=== PATIENT | female | born 1985 | race Caucasian/White ===

== ENCOUNTER → 2020-07-11 16:15 | Outpatient (BNVA) | payer MEDICAID, SELFPAY | PROVIDERS: PCP Internal Medicine Geriatric Medicine; Visit Provider Surgery | DX: L76.82 Other postprocedural complications of skin and subcutaneous tissue (principal); I96 Gangrene, not elsewhere classified | CPT/HCPCS: 11042; 99212 ==

== ENCOUNTER → 2020-07-18 15:41 | Outpatient (BNVA) | payer MEDICAID, SELFPAY | PROVIDERS: PCP Internal Medicine Geriatric Medicine; Visit Provider Surgery | DX: L76.82 Other postprocedural complications of skin and subcutaneous tissue (principal) | CPT/HCPCS: 97597; 99213 ==

== ENCOUNTER → 2020-08-02 13:47 | Outpatient (BNVA) | payer MEDICAID, SELFPAY | PROVIDERS: PCP Internal Medicine Geriatric Medicine; Visit Provider Surgery | DX: L76.82 Other postprocedural complications of skin and subcutaneous tissue (principal) | CPT/HCPCS: 99212 ==

== ENCOUNTER → 2020-08-06 15:28 | Outpatient (BNVA) | payer MEDICAID, SELFPAY | PROVIDERS: PCP Internal Medicine Geriatric Medicine; Referring Provider Internal Medicine Geriatric Medicine; Visit Provider Surgery | DX: Z76.89 Persons encountering health services in other specified circumstances (principal) ==

== ENCOUNTER → 2020-08-08 15:14 | Outpatient (BNVA) | payer MEDICAID, SELFPAY | PROVIDERS: PCP Internal Medicine Geriatric Medicine; Referring Provider Internal Medicine Geriatric Medicine; Visit Provider Surgery | DX: L76.82 Other postprocedural complications of skin and subcutaneous tissue (principal) | CPT/HCPCS: 99212 ==

== ENCOUNTER → 2020-08-10 12:39 | Outpatient (BNVA) | payer MEDICAID, SELFPAY | PROVIDERS: PCP Internal Medicine Geriatric Medicine; Referring Provider Internal Medicine Geriatric Medicine; Visit Provider Surgery | DX: Z76.89 Persons encountering health services in other specified circumstances (principal) ==

== ENCOUNTER → 2020-08-13 14:20 | Outpatient (BNVA) | payer MEDICAID, SELFPAY | PROVIDERS: PCP Internal Medicine Geriatric Medicine; Visit Provider Surgery | DX: L76.82 Other postprocedural complications of skin and subcutaneous tissue (principal) | CPT/HCPCS: 99211 ==

== ENCOUNTER → 2020-08-17 10:59 | Outpatient (BNVA) | payer MEDICAID, SELFPAY | PROVIDERS: PCP Internal Medicine Geriatric Medicine; Visit Provider Surgery | DX: L76.82 Other postprocedural complications of skin and subcutaneous tissue (principal) | CPT/HCPCS: 99211 ==

== ENCOUNTER → 2020-08-21 14:55 | Outpatient (BNVA) | payer MEDICAID, SELFPAY | PROVIDERS: PCP Internal Medicine Geriatric Medicine; Visit Provider Surgery | DX: L76.82 Other postprocedural complications of skin and subcutaneous tissue (principal) | CPT/HCPCS: 99212 ==

== ENCOUNTER → 2020-08-24 11:54 | Outpatient (BNVA) | payer MEDICAID, SELFPAY | PROVIDERS: PCP Internal Medicine Geriatric Medicine; Referring Provider Internal Medicine Geriatric Medicine; Visit Provider Surgery | DX: L76.82 Other postprocedural complications of skin and subcutaneous tissue (principal) | CPT/HCPCS: 99211 ==

== ENCOUNTER → 2020-08-27 11:18 | Outpatient (BNVA) | payer MEDICAID, SELFPAY | PROVIDERS: PCP Internal Medicine Geriatric Medicine; Visit Provider Surgery | DX: L76.82 Other postprocedural complications of skin and subcutaneous tissue (principal) | CPT/HCPCS: 99211 ==

== ENCOUNTER → 2020-08-29 12:16 | Outpatient (BNVA) | payer MEDICAID, SELFPAY | PROVIDERS: PCP Internal Medicine Geriatric Medicine; Visit Provider Surgery | DX: L76.82 Other postprocedural complications of skin and subcutaneous tissue (principal) | CPT/HCPCS: 99211 ==

== ENCOUNTER → 2020-09-12 15:15 | Outpatient (BNVA) | payer MEDICAID, SELFPAY | PROVIDERS: PCP Internal Medicine Geriatric Medicine; Referring Provider Internal Medicine Geriatric Medicine; Visit Provider Surgery | DX: L76.82 Other postprocedural complications of skin and subcutaneous tissue (principal) | CPT/HCPCS: 16020; 99212 ==

== ENCOUNTER → 2020-12-25 15:24 | Outpatient (BNVA) | payer MEDICAID, SELFPAY | PROVIDERS: PCP Internal Medicine Geriatric Medicine; Visit Provider Obstetrics & Gynecology ==

== ENCOUNTER 2021-03-09 22:29 | Emergency (ER) | payer MEDICAID, SELFPAY ==
[2021-03-09 22:42] VITALS: BP 106/70; BP 142/84; PULSE 109; PULSE 92; RESP 18; TEMP 36.8; O2SAT 96; O2SAT 98; BMI 34.9
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
== END 2021-03-10 00:36 | disposition home or self-care (01) ==
PROVIDERS: Emergency Provider Student in an Organized Health Care Education/Training Program
DX: R10.9 Unspecified abdominal pain (principal); Z48.00 Encounter for change or removal of nonsurgical wound dressing; Z79.899 Other long term (current) drug therapy
CPT/HCPCS: 99283

== ENCOUNTER 2021-03-26 19:21 | Inpatient (IN) | payer MEDICAID, SELFPAY ==
--- NOTE | ~2021-03-26 | CT_ITS ---
EXAMINATION: CT ABDOMEN AND PELVIS WITH CONTRAST CLINICAL INFORMATION: R sided mass felt cellulitis recent tummy tuck scar revision COMPARISON: CT scan abdomen pelvis 06/01/2020 TECHNIQUE: Multidetector volumetric images were obtained from the superior aspect of the liver through the pubic symphysis following administration 85 mL of Omnipaque 350 intravenous contrast. Sagittal and coronal reformatted images were obtained on the technologist's workstation. Oral contrast: No This CT examination was performed using dose optimization techniques as appropriate, variously including the following: *Automated exposure control *Adjustment of mA and/or kV according to patient size (this includes techniques or standardized protocols for targeted exams where dose is matched to indication/reason for exam; i.e. extremities or head) *Use of iterative reconstruction technique DLP: 759 mGy-cm FINDINGS: LUNG BASES: The visualized lung bases are unremarkable. LIVER, GALLBLADDER, AND BILIARY TREE: The liver is normal in size, shape, and attenuation. No focal hepatic lesion or biliary ductal dilatation is present. The gallbladder is unremarkable with no evidence of radiopaque gallstones, gallbladder wall thickening, or obvious pericholecystic inflammatory changes. PANCREAS: Unremarkable. SPLEEN: Unremarkable. ADRENAL GLANDS: Unremarkable. KIDNEYS AND URETERS: The kidneys are normal in size, shape, and attenuation. No hydronephrosis, hydroureter, or calculi seen. No perinephric stranding. BLADDER: Unremarkable. GASTROINTESTINAL TRACT: The small and large bowel are unremarkable. The appendix is unremarkable. ABDOMINAL WALL: There is a large ovoid fluid collection in the subcutaneous tissue at the anterior pelvic wall. Collection extends transversely across the pelvis. The density of the fluid collection measurement of 16 Hounsfield units, which is slightly greater than simple fluid. No air in the collection. The collection has a thin wall. The collection measures 7.6 x 3.3 x 24 cm in size. There is edema in the subcutaneous fat around the collection. No diastases of the musculature. No ventral wall hernia. LYMPH NODES: There are borderline prominent lymph nodes in the right and left groin likely reactive. No intrapelvic or intra-abdominal significant lymphadenopathy. VASCULAR: Unremarkable. PELVIC VISCERA: Unremarkable. OSSEOUS STRUCTURES: Unremarkable. CT/CT abdomen pelvis w con IMPRESSION: Postoperative subcutaneous fluid collection at the pelvis anterior wall.
--- NOTE | ~2021-03-26 | US_ITS ---
EXAMINATION: ULTRASOUND DRAIN PERCUTANEOUS CLINICAL INFORMATION: Abdominal wall abscess post surgery/abdominal plasty COMPARISON: Previous CT of the abdomen and pelvis from yesterday TECHNIQUE: Procedure and risks and benefits including bleeding and infection were discussed with the patient and informed consent was obtained. The right lower quadrant was prepped and draped in the usual sterile fashion. The skin and soft tissues were anesthetized with 1% lidocaine plain. Using ultrasound guidance and a 5 Maltese Yueh needle, access to the abdominal wall collection was obtained. Cloudy brown fluid was aspirated. Over an 035 guidewire and following serial dilatation, a 10.2 Maltese pigtail drainage catheter was positioned. Approximately 300 mL of cloudy brown fluid was removed. Diagnostic specimen was sent for Gram stain and culture. The patient received Versed 1 mg and fentanyl 50 mcg intravenously during the procedure. FINDINGS: There is a complex fluid collection with internal echoes in the abdominal wall that was targeted for drainage. US/US drain demetrio retro perc IMPRESSION: Ultrasound-guided abdominal wall drainage.
[2021-03-26 19:46] VITALS: BP 102/60; PULSE 98; RESP 20; TEMP 36.1; O2SAT 98; BMI 35.2
--- NOTE | 2021-03-26 19:59 | ED_ITS ---
HPI - Skin/Abscess/Foreign Bdy General Chief complaint: General Medical Stated complaint: INFECTION? Time Seen by Provider: 03/26/21 19:58 Source: patient Mode of arrival: ambulatory Limitations: no limitations History of Present Illness HPI narrative: 35 yo female hx of revision of her under arm scars and tummy tuck scar on 02/28 at [place] she notes her arms have been sore and she feels her lower incision is more red and swollen over the past couple of days, last night had a fever of 102 took tylenol and motrin prior to arrival. she did take antibiotics post op red pill and finished the weeks course. MD complaint: lesion and other (fevers, ?infected surgery wounds) Onset (ago): day(s) (2) Location: generalized (abdominal scar), LUE and RUE Severity: moderate Quality: aching Pain Consistency: constant Relieving factors: none Exacerbating factors: movement Context: recent antibiotic and other Associated symptoms: fever, chills, rigors, nausea and vomiting Treatments prior to arrival: none Related Data Home Medications Medication Instructions Recorded Confirmed bupropion HCl 300 mg 24 hr tablet, 300 mg PO QAM 07/11/20 03/26/21 extended release dextroamphetamine-amphetamine 20 20 mg PO DAILY@1500 07/11/20 03/26/21 mg tablet dextroamphetamine-amphetamine 20 40 mg PO DAILY 07/11/20 03/26/21 mg tablet amlodipine 1 tab PO DAILY 03/26/21 03/26/21 aripiprazole 5 mg PO BEDTIME 03/26/21 03/26/21 bupropion HCl 150 mg PO QAM 03/26/21 03/26/21 cholecalciferol (vitamin D3) 1 cap PO DAILY 03/26/21 03/26/21 risperidone 1 - 2 mg PO BEDTIME 03/26/21 03/26/21 risperidone 1 tab PO DAILY PRN 03/26/21 03/26/21 spironolactone 2 tab PO DAILY 03/26/21 03/26/21 Allergies Allergy/AdvReac Type Severity Reaction Status Date / Time citalopram [From CELEXA] Allergy Unknown JITTERY Verified 03/09/21 22:47 Review of Systems Review of Systems: Constitutional : No Weight loss, pos Fever, pos Chills, pos Fatigue, pos Malaise ENT/Mouth : No sore throat, No Rhinorrhea Eyes: No Eye Pain, No Swelling, No Redness Cardiovascular : No Chest Pain, No SOB, No Dyspnea on Exertion, No Orthopnea, No Edema, No Palpitations Respiratory : No Cough, No Sputum, No Wheezing Gastrointestinal : pos Nausea, pos Vomiting, No Diarrhea, No Constipation, No abdominal Pain, No Hematochezia, No Melena Genitourinary : No Dysuria, No Urinary Frequency, No Hematuria, Musculoskeletal : No joint pain, No Myalgias, No Joint Swelling Skin : pos Skin Lesions, No rash Neuro : pos Weakness, No Numbness, No Dizziness, No Headache Psych : No Anxiety/Panic, No Depression Heme/Lymph: No Bruising, No Bleeding,No Lymphadenopathy Endocrine : No Polyuria, No Polydipsia All other systems reviewed and are negative [facility] Past Medical History Attestation statement: The following information was validated with the patient. Medical History Bipolar disorder Other postprocedural complications of skin and subcutaneous tissue Surgical History History of abdominoplasty Status post panniculectomy Social History Social History Alcohol intake: current Patient Tobacco Use Status: Current everyday Tobacco user Substance Use Type: Marijuana Advance Directives: No Advance Directives Information Provided: Yes Patient : No Gender identity: female Physical Exam Vital Signs: Vital Signs: Last Vital Signs Temp 97.0 F 03/26/21 19:46 Pulse 88 03/27/21 00:00 Resp 16 03/27/21 00:00 BP 132/81 03/27/21 00:00 Pulse Ox 98 03/27/21 00:00 Body Mass Index 35.2 Appearance: Alert. Oriented X3. No acute distress. Eyes: Pupils equal, round and reactive to light. ENT: Pharynx normal. Neck: Normal inspection. Neck supple. CVS: Normal heart rate and rhythm. Pulses normal. Respiratory: No respiratory distress. Breath sounds normal. Abdomen: Soft abdominoplasty scars L side some superficial dehiscence, R side swelling firmness felt and erythema noted with yellow drainage, very warm to the touch Skin: Skin warm and dry. Normal skin color. Normal skin turgor. Extremities: No lower extremity edema. No calf ttp no cellulitis under the arms there is wound dehiscence, no necrosis, no drainage Neuro: Oriented X 3. No motor deficit. No sensory deficit. Course Course Course Narrative: Dr. Carlisle to admit patient for further care MDM - Skin/Abscess/Foreign Bdy MDM Narrative Medical decision making narrative: 35 yo female hx of revision of her under arm scars and tummy tuck scar on 02/28 at [place] she notes her arms have been sore and she feels her lower incision is more red and swollen over the past couple of days, last night had a fever of 102 took tylenol and motrin prior to arrival. she did take antibiotics post op red pill and finished the weeks course at this time there is a concern for cellulitis of her abdominal wall with ?abscess vs infected seroma - labs, culturs, IV zosyn/vancomycin and CT scan for deeper fluid collection - likely surgical consult and admit Lab Data Result diagrams: 03/26/21 20:42 03/26/21 20:42 Labs: Lab Results 03/26/21 03/26/21 03/26/21 Range/Units 20:42 20:42 20:42 WBC 16.5 H (4.8-10.8) X10*3/uL RBC 3.42 L (4.20-5.50) X10*6/uL Hgb 11.4 L (12.0-16.0) g/dl Hct 34.3 L (37-47) % MCV 100.3 H (80-98) fL MCH 33.3 H (27.0-33.0) pg MCHC 33.2 (31.0-35.0) g/dl RDW 14.2 (11.0-16.0) % Plt Count 501 H (160-400) X10*3/uL MPV 8.2 L (9.4-12.3) fL Immature Gran % (Auto) 0.7 H (0.0-0.4) % Neut % (Auto) 82.9 H (45-73) % Lymph % (Auto) 10.0 L (20-40) % [place] % (Auto) 6.0 (2-11) % Eos % (Auto) 0.2 (0-4) % Baso % (Auto) 0.2 (0-2) % Lymph # (Auto) 1.7 (1.2-4.9) X10*3/uL [place] # (Auto) 1.0 (0.1-1.2) X10*3/uL Eos # (Auto) 0.0 (0.0-0.4) X10*3/uL Baso # (Auto) 0.0 (0.0-0.2) X10*3/uL Abs Immat Gran (auto) 0.11 H (0.00-0.03) X10*3/uL Absolute Neuts (auto) 13.7 H (2.0-8.3) X10*3/uL Absolute Nucleated RBC 0.000 (0.0-0.012) X10*3/uL Nucleated RBC % (auto) 0.0 (0.0-0.2) /100WBC PT (10.8-13.0) SEC INR (0.9-1.1) APTT (24.1-38.0) SEC Sodium (135-145) mmol/L Potassium (3.3-5.1) mmol/L Chloride (96-108) mmol/L Carbon Dioxide (22-29) mmol/L Anion Gap (12-20) BUN (9-16) mg/dL Creatinine (0.5-1.4) mg/dL Estim Creat Clear Calc Estimated GFR Random Glucose (60-115) mg/dL Lactic Acid 1.7 (0.5-2.0) mmol/L Calcium (8.4-10.2) mg/dL Magnesium (1.6-2.6) mg/dL Total Bilirubin (0.0-1.0) mg/dL Direct Bilirubin (0.0-0.5) mg/dL AST (5-31) U/L ALT (0-31) U/L Alkaline Phosphatase (39-117) U/L C-Reactive Protein (< or = 0.50) mg/dL Total Protein (6.5-8.0) g/dL Albumin (3.5-5.0) g/dL Urine Color Urine Appearance Urine pH (5.0-8.0) Ur Specific [place] (1.005-1.025) Urine Protein (NEG-TRACE) MG/DL Urine Glucose (UA) (NEG) MG/DL Urine Ketones (NEG) MG/DL Urine Blood (NEG) Urine Nitrite (NEG) Ur Leukocyte Esterase (NEG) Urine RBC (0) /HPF Urine WBC (0-4) /HPF Ur Squamous Epith Cells /LPF Urine Bacteria /LPF Urine Test (NEGATIVE) COVID-19 ([facility]NEHAL) Negative (Negative) COVID-19 Clin Com See Note 03/26/21 03/26/21 03/26/21 Range/Units 20:42 20:42 20:42 WBC (4.8-10.8) X10*3/uL RBC (4.20-5.50) X10*6/uL Hgb (12.0-16.0) g/dl Hct (37-47) % MCV (80-98) fL MCH (27.0-33.0) pg MCHC (31.0-35.0) g/dl RDW (11.0-16.0) % Plt Count (160-400) X10*3/uL MPV (9.4-12.3) fL Immature Gran % (Auto) (0.0-0.4) % Neut % (Auto) (45-73) % Lymph % (Auto) (20-40) % [place] % (Auto) (2-11) % Eos % (Auto) (0-4) % Baso % (Auto) (0-2) % Lymph # (Auto) (1.2-4.9) X10*3/uL [place] # (Auto) (0.1-1.2) X10*3/uL Eos # (Auto) (0.0-0.4) X10*3/uL Baso # (Auto) (0.0-0.2) X10*3/uL Abs Immat Gran (auto) (0.00-0.03) X10*3/uL Absolute Neuts (auto) (2.0-8.3) X10*3/uL Absolute Nucleated RBC (0.0-0.012) X10*3/uL Nucleated RBC % (auto) (0.0-0.2) /100WBC PT 17.0 H (10.8-13.0) SEC INR 1.4 H (0.9-1.1) APTT 34.3 (24.1-38.0) SEC Sodium 137 (135-145) mmol/L Potassium 4.0 (3.3-5.1) mmol/L Chloride 101 (96-108) mmol/L Carbon Dioxide 20 L (22-29) mmol/L Anion Gap 20 (12-20) BUN 14 (9-16) mg/dL Creatinine 0.92 (0.5-1.4) mg/dL Estim Creat Clear Calc 98.8 Estimated GFR > 60 Random Glucose 94 (60-115) mg/dL Lactic Acid (0.5-2.0) mmol/L Calcium 9.0 (8.4-10.2) mg/dL Magnesium 2.0 (1.6-2.6) mg/dL Total Bilirubin 0.4 (0.0-1.0) mg/dL Direct Bilirubin < 0.2 (0.0-0.5) mg/dL AST 15 (5-31) U/L ALT < 6 (0-31) U/L Alkaline Phosphatase 88 (39-117) U/L C-Reactive Protein 33.02 H (< or = 0.50) mg/dL Total Protein 7.4 (6.5-8.0) g/dL Albumin 4.0 (3.5-5.0) g/dL Urine Color Urine Appearance Urine pH (5.0-8.0) Ur Specific [place] (1.005-1.025) Urine Protein (NEG-TRACE) MG/DL Urine Glucose (UA) (NEG) MG/DL Urine Ketones (NEG) MG/DL Urine Blood (NEG) Urine Nitrite (NEG) Ur Leukocyte Esterase (NEG) Urine RBC (0) /HPF Urine WBC (0-4) /HPF Ur Squamous Epith Cells /LPF Urine Bacteria /LPF Urine Test (NEGATIVE) COVID-19 (SNEHAL) (Negative) COVID-19 Clin Com 03/26/21 03/26/21 Range/Units 20:42 20:42 WBC (4.8-10.8) X10*3/uL RBC (4.20-5.50) X10*6/uL Hgb (12.0-16.0) g/dl Hct (37-47) % MCV (80-98) fL MCH (27.0-33.0) pg MCHC (31.0-35.0) g/dl RDW (11.0-16.0) % Plt Count (160-400) X10*3/uL MPV (9.4-12.3) fL Immature Gran % (Auto) (0.0-0.4) % Neut % (Auto) (45-73) % Lymph % (Auto) (20-40) % [place] % (Auto) (2-11) % Eos % (Auto) (0-4) % Baso % (Auto) (0-2) % Lymph # (Auto) (1.2-4.9) X10*3/uL [place] # (Auto) (0.1-1.2) X10*3/uL Eos # (Auto) (0.0-0.4) X10*3/uL Baso # (Auto) (0.0-0.2) X10*3/uL Abs Immat Gran (auto) (0.00-0.03) X10*3/uL Absolute Neuts (auto) (2.0-8.3) X10*3/uL Absolute Nucleated RBC (0.0-0.012) X10*3/uL Nucleated RBC % (auto) (0.0-0.2) /100WBC PT (10.8-13.0) SEC INR (0.9-1.1) APTT (24.1-38.0) SEC Sodium (135-145) mmol/L Potassium (3.3-5.1) mmol/L Chloride (96-108) mmol/L Carbon Dioxide (22-29) mmol/L Anion Gap (12-20) BUN (9-16) mg/dL Creatinine (0.5-1.4) mg/dL Estim Creat Clear Calc Estimated GFR Random Glucose (60-115) mg/dL Lactic Acid (0.5-2.0) mmol/L Calcium (8.4-10.2) mg/dL Magnesium (1.6-2.6) mg/dL Total Bilirubin (0.0-1.0) mg/dL Direct Bilirubin (0.0-0.5) mg/dL AST (5-31) U/L ALT (0-31) U/L Alkaline Phosphatase (39-117) U/L C-Reactive Protein (< or = 0.50) mg/dL Total Protein (6.5-8.0) g/dL Albumin (3.5-5.0) g/dL Urine Color YELLOW Urine Appearance CLEAR Urine pH 5.0 (5.0-8.0) Ur Specific [place] 1.025 (1.005-1.025) Urine Protein 1+ H (NEG-TRACE) MG/DL Urine Glucose (UA) NEG (NEG) MG/DL Urine Ketones 5 (NEG) MG/DL Urine Blood NEG (NEG) Urine Nitrite NEG (NEG) Ur Leukocyte Esterase NEG (NEG) Urine RBC 0 (0) /HPF Urine WBC 0-2 (0-4) /HPF Ur Squamous Epith Cells 4+ /LPF Urine Bacteria 1+ /LPF Urine Test NEGATIVE (NEGATIVE) COVID-19 ([facility]) (Negative) COVID-19 Clin Com Discharge Plan Discharge Clinical Impression: Wound dehiscence Cellulitis Qualifiers: Site of cellulitis: trunk Site of cellulitis of trunk: abdominal wall Qualified Code(s): L03.311 - Cellulitis of abdominal wall Leukocytosis Qualifiers: Leukocytosis type: unspecified Qualified Code(s): D72.829 - Elevated white blood cell count, unspecified Patient Disposition: Admitted As Inpatient
--- NOTE | 2021-03-26 20:06 | PC.NURSE ---
MD GEE AT BEDSIDE FOR PRIMARY EVAL.
--- NOTE | 2021-03-26 20:47 | PHA.MEDREC ---
Pharmacy Consult ? Medication Reconciliation Pharmacy has completed the medication reconciliation. Aldactone last filled for 50 mg daily, pt states that she still takes 100 mg daily
[2021-03-26 20:52] LABS: MANUAL DIFF FLAG NO
[2021-03-26] MEDS: Piperacillin Sodium/Tazobactam 3.375 GM in 0.9 % Sodium Chloride 50 ML IV (20:52)
[2021-03-26] MEDS: 0.9 % Sodium Chloride 1,000 ML 999 ML IVCONT (20:53)
[2021-03-26] MEDS: ondansetron HCL 4 MG/2 ML VIAL IVPUSH (20:53)
[2021-03-26 20:57] LABS: Glucose Urine UA NEG (NEG); Leukocyte Esterase Urine NEG (NEG); Nitrite Urine NEG (NEG); Specific Gravity - Urine 1.025 (1.005-1.025); Urine Blood NEG (NEG); Urine Ketones 5 MG/DL (NEG); Urine Protein 1+ MG/DL (NEG-TRACE)
[2021-03-26 20:59] LABS: Appearance Urine CLEAR; Color Urine YELLOW
[2021-03-26 21:02] LABS: Basophils Percent Auto 0.2 % (0-2); Eosinophils Percent Auto 0.2 % (0-4); Hematocrit 34.3 % (37-47); Hemoglobin 11.4 g/dl (12.0-16.0); Imm Gran Abs Auto 0.11 X10*3/uL (0.00-0.03); Imm Gran Pct Auto 0.7 % (0.0-0.4); Lymphocytes Absolute Auto 1.7 X10*3/uL (1.2-4.9); Mean Corpuscular HGB Conc 33.2 g/dl (31.0-35.0); Mean Corpuscular Hemoglobin 33.3 pg (27.0-33.0); Mean Corpuscular Volume 100.3 fL (80-98); Mean Platelet Volume 8.2 fL (9.4-12.3); Neutrophils Absolute Auto 13.7 X10*3/uL (2.0-8.3); Neutrophils Percent Auto 82.9 % (45-73); Platelet Count 501 X10*3/uL (160-400); Red Blood Count 3.42 X10*6/uL (4.20-5.50); Red Cell Distribution Width 14.2 % (11.0-16.0); White Blood Count 16.5 X10*3/uL (4.8-10.8)
[2021-03-26 21:03] LABS: INTERNATIONAL NORM RATIO 1.4 (0.9-1.1)
[2021-03-26 21:06] LABS: Partial Thromboplastin Time 34.3 SEC (24.1-38.0)
[2021-03-26 21:09] LABS: COVID-19 Test Negative (Negative)
[2021-03-26 21:19] LABS: Lactic Acid 1.7 mmol/L (0.5-2.0)
[2021-03-26 21:23] LABS: UPreg QC Valid YES; Urine Pregnancy NEGATIVE (NEGATIVE)
[2021-03-26 21:24] LABS: Anion Gap 20 (12-20); Bacteria Urine 1+ /LPF; Blood Urea Nitrogen 14 mg/dL (9-16); Carbon Dioxide 20 mmol/L (22-29); Chloride 101 mmol/L (96-108); Creatinine Clr Calc Pharmacy 98.8; Estimated Glomerular Filt Rate > 60; Glucose Random 94 mg/dL (60-115); RBC Urine 0 /HPF (0); Sodium 137 mmol/L (135-145); Squamous Epithelial Cell Urine 4+ /LPF; WBC Urine 0-2 /HPF (0-4)
[2021-03-26 21:26] LABS: Alanine Aminotransferase < 6 U/L (0-31); Alkaline Phosphatase 88 U/L (39-117); Aspartate Amino Transferase 15 U/L (5-31); Bilirubin Direct < 0.2 mg/dL (0.0-0.5); Bilirubin Total 0.4 mg/dL (0.0-1.0); Total Protein 7.4 g/dL (6.5-8.0)
[2021-03-26] MEDS: iohexoL 350 MG/ML 100 ML INFUS..BTL IV (21:45)
[2021-03-26 22:18] LABS: C Reactive Protein 33.02 mg/dL (< or = 0.50)
[2021-03-26] MEDS: vancomycin HCL 1,250 MG in 0.9 % Sodium Chloride 250 ML 166.67 MG IV (22:26)
--- NOTE | 2021-03-26 22:57 | PM.HPGS ---
History of Present Illness History of Present Illness Date of Service: 03/27/21 Chief complaint: Abdominal wall abscess Narrative: Janie Mccormack is a 35 year old female history of abdominal plasty performed in [place], [place] last year subsequently developed an area of skin necrosis. She was treated by Dr. Rice and required wound debridement followed by wound VAC placement. After a prolonged period the wound closed completely. She return to [place] for revision of the scar in February 2021 including revision of scars in the upper arm and now presents with increased abdominal pain, redness and evidence of an abdominal wall infection. She reports pain throughout the lower abdomen which has been increasing over the past week. She also complains of fever and chills. Review of Systems Review of Systems: Yes all other systems are reviewed and are negative Constitutional: Constitutional: Reports body ache(s), Reports chills, Reports fatigue and Reports fever(s) Cardiovascular: Cardiovascular: Denies dyspnea Respiratory: Respiratory: Denies cough, Denies dyspnea and Denies wheezing Gastrointestinal: Gastrointestinal: Reports as per HPI Musculoskeletal: Musculoskeletal: Reports as per HPI Endocrine: Endocrine: Reports fatigue Allergic/Immunologic: Allergic/Immunologic: Denies wheezing PMF Past Medical History Medical History Bipolar disorder Other postprocedural complications of skin and subcutaneous tissue Surgical History Surgical History History of abdominoplasty Status post panniculectomy Social History Social History Household Members: Children Housing: House Alcohol intake: current Patient Tobacco Use Status: Current everyday Tobacco user Tobacco use type: Cigarette Patient Interested in Nicotine Replacement: No Patient Given Instructions on How to Stop Smoking: No Substance Use Type: Marijuana Substance Use Frequency: Daily Currently Displaying Signs/Symptoms of Drug Intoxication Withdrawal: No Any prior treatment program specific to substance use: No Have you been hit, kicked, punched, or otherwise hurt by someone within the past year? If so, by whom?: No Do you feel safe in your current relationship?: Yes Is there a partner from a previous relationship who is making you feel unsafe now?: No Are you made to feel afraid or neglected: No Advance Directives: No Advance Directives Information Provided: Yes Do you have thoughts of harming others: None Do you have a plan to hurt others: No Plan Recently lost weight without trying: No Nutrition Risks: No Nutritional Risk Patient : No : No Poor oral hygiene: No service: No Current occupational status: unemployed Gender identity: female Meds Allergies Allergy/AdvReac Type Severity Reaction Status Date / Time citalopram [From CELEXA] Allergy Unknown JITTERY Verified 03/27/21 13:51 Active Medications: Current Medications Generic Name Dose Route Start Last Admin Trade Name Freq PRN Reason Stop Dose Admin Piperacillin Sod/Tazobactam 50 mls @ 100 mls/hr 03/26/21 23:00 Sod 3.375 gm/ Sodium Chloride IV Q6H [facility] Pharmacy Consult 1 each 03/26/21 20:07 Consult Rx Perform Med Rec MISCELLANE ONCE PRN Consult order Home Medications Medication Instructions Recorded Confirmed Last Taken Type bupropion HCl 300 mg 24 hr tablet, 300 mg PO QAM 07/11/20 03/26/21 03/24/21 History extended release dextroamphetamine-amphetamine 20 20 mg PO DAILY@1500 07/11/20 03/26/21 03/25/21 History mg tablet dextroamphetamine-amphetamine 20 40 mg PO DAILY 07/11/20 03/26/21 03/24/21 History mg tablet amlodipine 1 tab PO DAILY 03/26/21 03/26/21 03/24/21 History aripiprazole 5 mg PO BEDTIME 03/26/21 03/26/21 03/24/21 History bupropion HCl 150 mg PO QAM 03/26/21 03/26/21 03/24/21 History cholecalciferol (vitamin D3) 1 cap PO DAILY 03/26/21 03/26/21 03/24/21 History risperidone 1 - 2 mg PO BEDTIME 03/26/21 03/26/21 03/24/21 History risperidone 1 tab PO DAILY PRN 03/26/21 03/26/21 Unknown History spironolactone 2 tab PO DAILY 03/26/21 03/26/21 03/24/21 History Physical Exam Vital Signs: Vital Signs: Last Vital Signs Temp 97.0 F 03/26/21 19:46 Pulse 98 03/26/21 19:46 Resp 20 03/26/21 19:46 BP 102/60 03/26/21 19:46 Pulse Ox 98 03/26/21 19:46 Body Mass Index 35.2 Const: General: cooperative, no acute distress, alert and awake Nutritional Appearance: well nourished Orientation/consciousness: patient oriented x3 Neck: Neck: Yes normal visual inspection, Yes full ROM and Yes no JVD Resp: Effort & Inspection: normal respiratory effort, no stridor and not tachypneic Auscultation: no wheezes Cardio: Jugular venous distension: no JVD Rate: regular rate Rhythm: regular rhythm GI: Abdomen image: 1. Incision lower abdomen with surrounding erythema Neuro: General: patient oriented x3 Results Results Labs: Short CBC 03/26/21 Range/Units 20:42 WBC 16.5 H (4.8-10.8) X10*3/uL Hgb 11.4 L (12.0-16.0) g/dl Hct 34.3 L (37-47) % Plt Count 501 H (160-400) X10*3/uL BMP 03/26/21 20:42 Sodium 137 Potassium 4.0 Chloride 101 Carbon Dioxide 20 L BUN 14 Creatinine 0.92 Calcium 9.0 Liver Function 03/26/21 Range/Units 20:42 Total Bilirubin 0.4 (0.0-1.0) mg/dL Direct Bilirubin < 0.2 (0.0-0.5) mg/dL AST 15 (5-31) U/L ALT < 6 (0-31) U/L Alkaline Phosphatase 88 (39-117) U/L Albumin 4.0 (3.5-5.0) g/dL Urine 03/26/21 03/26/21 Range/Units 20:42 20:42 Urine Color YELLOW Urine Appearance CLEAR Urine pH 5.0 (5.0-8.0) Ur Specific [place] 1.025 (1.005-1.025) Urine Protein 1+ H (NEG-TRACE) MG/DL Urine Glucose (UA) NEG (NEG) MG/DL Urine Test NEGATIVE (NEGATIVE) Assessment and Plan (1) Other postprocedural complications of skin and subcutaneous tissue: Status: Acute 35-year-old female patient status post revision of an abdominal plasty performed in [place], [place] last month now presenting with an abscess of the abdominal wall identified by CT of the abdomen pelvis. This may be an infected hematoma and should be drained either percutaneously or surgically. We will attempt a ultrasound-guided aspiration with drain placement. She will continue on IV antibiotics as well pending wound cultures. Patient expressed understanding and agrees with the plan. Quality Stroke Does the patient have a stroke diagnosis?: No VTE Prior VTE?: No VTE Risk Level:: Surgical - low VTE Device Contraindication: N/A - Device Ordered VTE Drug Contraindication: Treatment Not Indicated Procedures Date of Service Date of Service: 03/27/21
--- NOTE | 2021-03-26 23:55 | PC.NURSE ---
PT TO BE ADMITTED, AWARE OF PLAN OF CARE. SITTING UP IN BED A&Ox4, WATCHING TV. DENIES PAIN, OFFERS NO COMPLAINTS AT THIS TIME. AWAITING BED ASSIGNMENT FOR ADMISSION, AWARE OF PLAN OF CARE.
[2021-03-27] VITALS (11 sets, daily range): BP systolic 110–145; BP diastolic 61–81; PULSE 82–101; RESP 15–19; TEMP 36.4–38; O2SAT 98–100
[2021-03-27] MEDS: Acetaminophen 325 MG TABLET 650 MG PO ×2 (00:21→08:43)
[2021-03-27] MEDS: Ibuprofen 600 MG TABLET PO (00:22)
[2021-03-27] MEDS: Piperacillin Sodium/Tazobactam 3.375 GM in 0.9 % Sodium Chloride 50 ML IV ×4 (01:44→20:36)
[2021-03-27] MEDS: Dextrose 5 % and Lactated Ring 1,000 ML 125 ML IVCONT ×3 (02:40→19:03)
[2021-03-27] MEDS: Morphine Sulfate 4 MG/ML CARTRIDGE IVPUSH ×3 (02:46→12:39)
[2021-03-27 06:15] LABS: MANUAL DIFF FLAG NO
[2021-03-27 06:19] LABS: Basophils Percent Auto 0.2 % (0-2); Eosinophils Absolute Auto 0.1 X10*3/uL (0.0-0.4); Eosinophils Percent Auto 0.8 % (0-4); Hematocrit 31.3 % (37-47); Hemoglobin 10.1 g/dl (12.0-16.0); Imm Gran Abs Auto 0.07 X10*3/uL (0.00-0.03); Imm Gran Pct Auto 0.5 % (0.0-0.4); Lymphocytes Absolute Auto 1.9 X10*3/uL (1.2-4.9); Lymphocytes Percent Auto 14.3 % (20-40); Mean Corpuscular HGB Conc 32.3 g/dl (31.0-35.0); Mean Corpuscular Volume 102.3 fL (80-98); Mean Platelet Volume 8.4 fL (9.4-12.3); Monocytes Absolute Auto 0.8 X10*3/uL (0.1-1.2); Monocytes Percent Auto 6.1 % (2-11); Neutrophils Absolute Auto 10.3 X10*3/uL (2.0-8.3); Neutrophils Percent Auto 78.1 % (45-73); Platelet Count 447 X10*3/uL (160-400); Red Blood Count 3.06 X10*6/uL (4.20-5.50); Red Cell Distribution Width 14.4 % (11.0-16.0); White Blood Count 13.3 X10*3/uL (4.8-10.8)
[2021-03-27] MEDS: Cholecalciferol (Vitamin D3) 25 MCG TABLET 50 MCG PO (08:37)
[2021-03-27] MEDS: buPROPion HCl XL 300 MG TAB.ER.24H PO (08:38)
[2021-03-27] MEDS: Spironolactone 25 MG TABLET 100 MG PO (08:38)
[2021-03-27] MEDS: amLODIPine Besylate 2.5 MG TABLET PO (08:38)
[2021-03-27] MEDS: buPROPion HCl XL 150 MG TAB.ER.24H PO (08:38)
[2021-03-27] MEDS: oxyCODONE HCl Immed Release 5 MG TABLET PO ×3 (08:44→22:10)
--- NOTE | 2021-03-27 12:43 | MHC.CM.PN ---
EMR REVIEWED, PT ADMITTED W/ABD WALL ABCESS AFTER SURGICAL PROCEDURE DONE IN [place], CM MET W/PT WHO REPORTS SHE IS INDEPENDENT, NO DME OR HOME SERVICES, VERIFIES PCP & PSYCHIATRY, PT REPORTS INTEREST IN THERAPY, PT DECLINING CARE TEAM HOWEVER WOULD LIKE INFO, HANDOUT W/[facility] & OTHER COUNSELING SERVICES GIVEN TO PT. D/C PLAN: HOME SELF-CARE, [facility], CAR IN [facility] LOT PCP: SONIA LEE PSYCHIATRY: SYEDA FISCHER MD
--- NOTE | 2021-03-27 16:37 | HO.RADPN ---
RADIOLOGY Narrative Narrative: 10.2 Fr drain placed in abdominal wall collection. 500 mL cloudy serosanguinous fluid removed. specimen sent for culture.
[2021-03-27] MEDS: Lidocaine HCl 1 % MPF 5 ML VIAL SUBCUT (17:14)
[2021-03-27] MEDS: 0.9 % Sodium Chloride Flush 3 ML SYRINGE IVFLUSH (18:08)
[2021-03-27] MEDS: ARIPiprazole 5 MG TABLET PO (20:45)
[2021-03-27] MEDS: risperiDONE 1 MG TABLET PO (20:45)
[2021-03-28] MEDS: Piperacillin Sodium/Tazobactam 3.375 GM in 0.9 % Sodium Chloride 50 ML IV ×2 (02:35→07:37)
[2021-03-28] MEDS: Dextrose 5 % and Lactated Ring 1,000 ML 125 ML IVCONT (02:35)
[2021-03-28] MEDS: oxyCODONE HCl Immed Release 5 MG TABLET PO ×2 (02:56→07:35)
[2021-03-28 04:00] VITALS: BP 119/60; PULSE 92; RESP 16; TEMP 36.8; O2SAT 98
[2021-03-28] MEDS: amLODIPine Besylate 2.5 MG TABLET PO (07:34)
[2021-03-28] MEDS: Cholecalciferol (Vitamin D3) 25 MCG TABLET 50 MCG PO (07:35)
--- NOTE | 2021-03-28 07:35 | PM.PNGS ---
Subjective Subjective Date of Service: 04/01/21 Interval history: Patient feels improved after placement of drain, knows how to manage the YO drain. Feels ready for discharged to home. Physical Exam Vital Signs: Vital Signs: Last Vital Signs Temp 98.3 F 03/28/21 04:00 Pulse 92 03/28/21 04:00 Resp 16 03/28/21 04:00 BP 119/60 03/28/21 04:00 Pulse Ox 98 03/28/21 04:00 Body Mass Index 35.2 Const: General: cooperative, healthy appearing, comfortable and no acute distress Resp: Effort & Inspection: normal respiratory effort GI: Other: less redness, less tender, drain intact, draining serosanguinous discharge. Incisions clean and intact without necrotic skin. Skin: General skin exam: no rashes or lesions noted Extrem: General: Yes no clubbing, cyanosis or edema Progress Note: A&P Assessment and plan (1) Other postprocedural complications of skin and subcutaneous tissue: Status: Acute Assessment and Plan: Patient is much improved and feels ready for discharge to home. She will record the output from the drain daily and return in one week for a wound check. Fall Risk Details Current Medications: Current Medications Generic Name Dose Route Start Last Admin Trade Name Freq PRN Reason Stop Dose Admin Acetaminophen 650 mg 03/27/21 01:26 03/27/21 08:43 Acetaminophen 325 Mg Tablet PO 650 mg Q6H PRN Administration Pain, Mild (Pain Scale 1-3) Amlodipine Besylate 2.5 mg 03/27/21 09:00 03/27/21 08:38 Amlodipine Besylate 2.5 Mg Tablet PO 2.5 mg DAILY GONZALO Administration Protocol Amphetamine/Dextroamphetamine 20 mg 03/27/21 15:00 03/27/21 18:09 Amphetamine Mixed Salts 20 Mg Tablet PO Not Given DAILY@1500 GONZALO Aripiprazole 5 mg 03/27/21 21:00 03/27/21 20:45 Aripiprazole 5 Mg Tablet PO 5 mg BEDTIME GONZALO Administration Bupropion HCl 300 mg 03/27/21 09:00 03/27/21 08:38 Bupropion Hcl Xl 300 Mg Tab.Er.24h PO 300 mg DAILY GONZALO Administration Bupropion HCl 150 mg 03/27/21 09:00 03/27/21 08:38 Bupropion Hcl Xl 150 Mg Tab.Er.24h PO 150 mg DAILY GONZALO Administration Piperacillin Sod/Tazobactam 50 mls @ 100 mls/hr 03/27/21 02:00 03/28/21 03:14 Sod 3.375 gm/ Sodium Chloride IV Infused Q6H GONZALO Infusion Dextrose/Lactated Ringer's 1,000 mls @ 125 mls/hr 03/27/21 01:26 03/28/21 02:35 D5lr IVCONT 125 mls/hr .Q8H GONZALO Administration Morphine Sulfate 4 mg 03/27/21 01:26 03/27/21 12:39 Morphine Sulfate 4 Mg/Ml Cartridge IVPUSH 4 mg Q4H PRN Administration Pain, Severe (Pain Scale 7-10) Ondansetron HCl 4 mg 03/27/21 01:26 Ondansetron Hcl 4 Mg/2 Ml Vial IVPUSH QID PRN Nausea Oxycodone HCl 5 mg 03/27/21 22:01 03/28/21 02:56 Oxycodone Hcl Immed Release 5 Mg Tablet PO 5 mg Q4H PRN Administration Pain, Moderate (Pain Scale 4-6 Pharmacy Consult 1 each 03/26/21 20:07 Consult Rx Perform Med Rec MISCELLANE ONCE PRN Consult order Risperidone 0.25 mg 03/27/21 01:26 Risperidone 0.25 Mg Tablet PO DAILY PRN anxiety Risperidone 1 mg 03/27/21 21:00 03/27/21 20:45 Risperidone 1 Mg Tablet PO 1 mg BEDTIME GONZALO Administration Sodium Chloride 3 ml 03/27/21 01:26 03/27/21 23:08 0.9 % Sodium Chloride Flush 3 Ml Syringe IVFLUSH Not Given QSHIFT GONZALO Spironolactone 100 mg 03/27/21 09:00 03/27/21 08:38 Spironolactone 25 Mg Tablet PO 100 mg DAILY GONZALO Administration Protocol Vitamin D 50 mcg 03/27/21 09:00 03/27/21 08:37 Cholecalciferol (Vitamin D3) 25 Mcg Tablet PO 50 mcg DAILY GONZALO Administration Zolpidem Tartrate 5 mg 03/27/21 01:26 Zolpidem Tartrate 5 Mg Tablet PO BEDTIME PRN Insomnia Time Spent With Patient Time: Total time spent is greater than 50% in coordination of care (as documented) at patient's floor/unit and/or counseling patient: Time with patient: 15 - 24 minutes Procedures Date of Service Date of Service: 03/28/21 Quality Stroke Does the patient have a stroke diagnosis?: No VTE Prior VTE?: No VTE Risk Level:: Surgical - low VTE Device Contraindication: N/A - Device Ordered VTE Drug Contraindication: Treatment Not Indicated
[2021-03-28] MEDS: Spironolactone 25 MG TABLET 100 MG PO (07:36)
[2021-03-28] MEDS: buPROPion HCl XL 150 MG TAB.ER.24H PO (07:36)
--- NOTE | 2021-03-28 07:36 | PM.DS ---
DS: Providers Provider Date of Service: 03/28/21 Date of admission: 03/26/21 22:52 Date of discharge: 03/28/21 Primary care physician: Jayme Martines MD Admitting clinician: Jerardo Carlisle Discharging clinician: Jerardo Carlisle DS: Diagnosis Discharge Diagnosis (1) Other postprocedural complications of skin and subcutaneous tissue: Status: Acute DS: Medications Discharge Medications Home Medications: Home Medications Medication Instructions Recorded Confirmed bupropion HCl 300 mg 24 hr tablet, 300 mg PO QAM 07/11/20 03/26/21 extended release dextroamphetamine-amphetamine 20 20 mg PO DAILY@1500 07/11/20 03/26/21 mg tablet dextroamphetamine-amphetamine 20 40 mg PO DAILY 07/11/20 03/26/21 mg tablet amlodipine 1 tab PO DAILY 03/26/21 03/26/21 aripiprazole 5 mg PO BEDTIME 03/26/21 03/26/21 bupropion HCl 150 mg PO QAM 03/26/21 03/26/21 cholecalciferol (vitamin D3) 1 cap PO DAILY 03/26/21 03/26/21 risperidone 1 - 2 mg PO BEDTIME 03/26/21 03/26/21 risperidone 1 tab PO DAILY PRN 03/26/21 03/26/21 spironolactone 2 tab PO DAILY 03/26/21 03/26/21 Previous Rx's Medication Instructions Recorded amoxicillin-pot clavulanate 1 tab PO Q8H #30 tab 03/28/21 [Augmentin] oxycodone 5 mg PO Q6H PRN #14 tab 03/28/21 DS: Summary Hospital Course Hospital Course: Janie Mccormack is a 35 year old female history of abdominoplasty performed in [place], [place] last year subsequently developed an area of skin necrosis. She was treated by Dr. Rice and required wound debridement followed by wound VAC placement. After a prolonged period the wound closed completely. She returned to [place] for revision of the scar in February 2021 including revision of scars in the upper arm and now presents with increased abdominal pain, redness and evidence of an abdominal wall infection. She reports pain throughout the lower abdomen which has been increasing over the past week. She also complains of fever and chills. Arrangements were made for IR drainage of the abscess which was performed on HD #2. She tolerated this well and a large fluid collection was drained with US guidance. A drain with bulb suction was left in place. The patient was instructed on wound care and drain management and subsequently discharged home in stable condition. She will follow up in the office in 1 week for a wound check and possible drain removal Time Spent with Patient Time attestation: Total time spent providing and/or coordinating discharge services: Discharge coordination time: Less than 30 minutes Quality: Stroke Does the patient have a stroke diagnosis?: No Physical Exam Vital Signs: Vital Signs: Last Vital Signs Temp 98.3 F 03/28/21 04:00 Pulse 92 03/28/21 04:00 Resp 16 03/28/21 04:00 BP 119/60 03/28/21 04:00 Pulse Ox 98 03/28/21 04:00 Body Mass Index 35.2 Const: General: cooperative, comfortable and no acute distress Resp: Effort & Inspection: normal respiratory effort GI: Other: YO intact, with serosanguinous discharge. Incision is clean and intact with some erythema. Skin: General skin exam: no rashes or lesions noted Extrem: General: Yes no clubbing, cyanosis or edema DS: Data Data Completed and Pending Labs on day of discharge: Preliminary micro results at discharge 03/26/21 20:42 Blood Culture - Preliminary Blood - Venous No growth after 24 hours. 03/26/21 20:42 Blood Culture - Preliminary Blood - Venous No growth after 24 hours. Discharge Plan Discharge Anticipated Discharge Date/Time: 03/28/21 10:32 Patient Disposition: Home, Self-Care Discharge Diagnosis: Abscess abdominal wall Referrals: Jerardo Carlisle MD [Physician] - 1 Week Name,MD Jayme [Primary Care Provider] - 1 Week Discharge Medications: New oxycodone 5 mg tablet 5 mg PO Q6H PRN (Reason: pain) Qty: 14 RF: 0 amoxicillin-pot clavulanate [Augmentin] 500-125 mg tablet 1 tab PO Q8H Qty: 30 RF: 0 Continued spironolactone 50 mg tablet 2 tab PO DAILY RF: 0 risperidone 0.25 mg tablet 1 tab PO DAILY PRN (Reason: anxiety) RF: 0 amlodipine 2.5 mg tablet 1 tab PO DAILY RF: 0 risperidone 1 mg tablet 1 - 2 mg PO BEDTIME RF: 0 aripiprazole 5 mg tablet 5 mg PO BEDTIME RF: 0 bupropion HCl 150 mg tablet extended release 24 hr 150 mg PO QAM RF: 0 cholecalciferol (vitamin D3) 50 mcg (2,000 unit) capsule 1 cap PO DAILY RF: 0 bupropion HCl [Wellbutrin XL] 300 mg tablet extended release 24 hr 300 mg PO QAM RF: 0 dextroamphetamine-amphetamine [Adderall] 20 mg tablet 40 mg PO DAILY RF: 0 dextroamphetamine-amphetamine [Adderall] 20 mg tablet 20 mg PO DAILY@1500 RF: 0 Discharge Orders: Discharge Order (Routine); Ordered 03/28/21 Ordered By: Jerardo Carlisle Diet: advance to usual diet Activity on Discharge: As tolerated Stand Alone Forms: Patient Portal Discharge page Care Plan Goals: Resolution of cellulitis, abscess Health Concerns: Abscess after abdominoplasty Plan of Treatment: IR drainage PO antibiotics Assessment: Abscess/cellulitis post abdominoplasty Discharge Date/Time: 03/28/21 12:53
[2021-03-28] MEDS: buPROPion HCl XL 300 MG TAB.ER.24H PO (07:37)
[2021-03-28 08:00] VITALS: BP 125/78; PULSE 85; RESP 18; TEMP 36.2; O2SAT 98
[2021-03-28] MEDS: Acetaminophen 325 MG TABLET 650 MG PO (11:02)
[2021-03-28] MEDS: Amphetamine Mixed Salts 20 MG TABLET PO (11:03)
--- NOTE | 2021-03-28 11:40 | PC.NURSE ---
Skin/wound assessment completed today. Patient has bilateral arm incisions which have open areas near armpits and elbows. Wounds were cleaned, silver alginate applied and cover with gauze dressing. Dr. Carlisle was notified of these new wounds. Abdomen incision had small draining areas, cleaned and dressed.
[2021-03-28 12:00] VITALS: BP 147/80; PULSE 88; RESP 18; TEMP 36.3; O2SAT 99
== END 2021-03-28 12:53 | disposition home or self-care (01) | DRG 721 ==
LOC: HO.ED 22:43 → HO.EDOVER 23:30 → HO.S3 03-27 00:07
PROVIDERS: Radiology Diagnostic Radiology; Admitting Provider Surgery; Emergency Provider Emergency Medicine; PCP Internal Medicine Geriatric Medicine; Visit Provider Surgery
DX: T81.41XA Infection following a procedure, superficial incisional surgical site, initial encounter (principal); L03.311 Cellulitis of abdominal wall; D72.829 Elevated white blood cell count, unspecified; F31.9 Bipolar disorder, unspecified; Z20.822 Contact with and (suspected) exposure to COVID-19; Z79.899 Other long term (current) drug therapy
CPT/HCPCS: 36415; 49406; 74177; 80048; 80076; 81001; 81025; 83605; 83735; 85025; 85610; 85730; 86140; 87040; 87071; 87073; 87077; 87186; 87205; 87635; 99152; 99153; 99285; J2270; J2405; J2543; J3370; Q4186; Q9967

== ENCOUNTER → 2021-04-02 11:08 | Outpatient (BNVA) | payer MEDICAID, SELFPAY | PROVIDERS: PCP Internal Medicine Geriatric Medicine; Visit Provider Surgery | DX: L02.211 Cutaneous abscess of abdominal wall (principal); L76.82 Other postprocedural complications of skin and subcutaneous tissue | CPT/HCPCS: 99212 ==

== ENCOUNTER → 2021-07-08 15:13 | Outpatient (BNVA) | payer MEDICAID, SELFPAY | PROVIDERS: PCP Internal Medicine Geriatric Medicine; Visit Provider Obstetrics & Gynecology | DX: Z13.89 Encounter for screening for other disorder (principal) | CPT/HCPCS: 99212 ==

== ENCOUNTER 2024-02-24 17:10 | Outpatient (REF) | payer MEDICAID, SELFPAY ==
[2024-03-02 22:47] LABS: HPV mRNA E6/E7 rflx Not Detected (Not Detected)
== END 2024-02-24 17:11 | disposition home or self-care (01) ==
LOC: HO.HHCLNP 17:10
PROVIDERS: Visit Provider Advanced Practice Midwife
DX: Z12.4 Encounter for screening for malignant neoplasm of cervix (principal); Z11.3 Encounter for screening for infections with a predominantly sexual mode of transmission
CPT/HCPCS: 87624; 88142

== ENCOUNTER 2024-08-02 16:01 | Outpatient (REF) | payer MEDICAID, SELFPAY ==
[2024-08-02 16:53] LABS: MANUAL DIFF FLAG NO
[2024-08-02 17:00] LABS: Basophils Absolute Auto 0.1 X10*3/uL (0.0-0.2); Basophils Percent Auto 1.2 % (0-2); Eosinophils Absolute Auto 0.2 X10*3/uL (0.0-0.4); Eosinophils Percent Auto 3.4 % (0-4); Hematocrit 42.4 % (37.0-47.0); Hemoglobin 13.7 g/dl (12.0-16.0); Imm Gran Abs Auto 0.01 X10*3/uL (0.00-0.03); Imm Gran Pct Auto 0.2 % (0.0-0.4); Lymphocytes Absolute Auto 1.7 X10*3/uL (1.2-4.9); Lymphocytes Percent Auto 33.7 % (20-40); Mean Corpuscular HGB Conc 32.3 g/dl (31.0-35.0); Mean Corpuscular Hemoglobin 36.1 pg (27.0-33.0); Mean Platelet Volume 10.1 fL (9.4-12.3); Monocytes Absolute Auto 0.4 X10*3/uL (0.1-1.2); Monocytes Percent Auto 6.9 % (2-11); Neutrophils Absolute Auto 2.8 x10*3/uL (2.0-8.3); Neutrophils Percent Auto 54.6 % (45-73); Platelet Count 247 X10*3/uL (160-400); Red Cell Distribution Width 13.6 % (11.0-16.0); White Blood Count 5.1 X10*3/uL (4.8-10.8)
[2024-08-02 17:30] LABS: Appearance Urine Clear; Color Urine Yellow; Glucose Urine UA Negative (Negative); Leukocyte Esterase Urine Negative (Negative); Nitrite Urine Negative (Negative); Specific Gravity - Urine 1.015 (1.005-1.025); Urine Blood Negative (Negative); Urine Ketones Trace mg/dL (Negative); Urine Protein Negative (Neg-Trace)
[2024-08-02 17:43] LABS: Alanine Aminotransferase 66 U/L (0-31); Albumin Level 4.1 g/dL (3.5-5.0); Alkaline Phosphatase 117 U/L (39-117); Anion Gap 17 (12-20); Aspartate Amino Transferase 157 U/L (5-31); Bilirubin Total 0.4 mg/dL (0.0-1.0); Blood Urea Nitrogen 4 mg/dL (9-16); Calcium 10.2 mg/dL (8.4-10.2); Carbon Dioxide 21 mmol/L (22-29); Chloride 108 mmol/L (96-108); Estimated Glomerular Filt Rate > 60; Glucose Random 67 mg/dL (60-115); Potassium 3.6 mmol/L (3.3-5.1); Sodium 142 mmol/L (135-145); Total Protein 7.7 g/dL (6.5-8.0)
[2024-08-02 17:58] LABS: TSH reflex Free T4 1.55 uIU/mL (0.32-4.0)
[2024-08-02 18:08] LABS: Estimated Average Glucose 88 mg/dL; Hemoglobin A1C 98.7876 umol/L; Hemoglobin A1c % 4.7 % (<6.0); Total Hemoglobin (HGBA1C) 3483.5756 umol/L
[2024-08-02 20:39] LABS: Mean Corpuscular Volume 111.6 fL (80.0-98.0)
[2024-08-03 02:49] LABS: CT PCR NOT DETECTED (Not Detect.); NG PCR NOT DETECTED (Not Detect.)
[2024-08-04 08:50] LABS: HIV AB/AG Nonreactive (Nonreactive); HIV Num 1 0.06 S/CO (0.00-0.99); ~HepC Num1 0.09 S/CO (0.00-0.79); ~Hepatitis C Antibody Nonreactive (Nonreactive)
[2024-08-04 12:53] LABS: RPR Rapid Plasma Reagin NON-REACTIVE (NON-REACTIVE)
[2024-08-10 13:19] LABS: Anti Nuclear Antibody Pattern Nuclear, Speckled; Anti Nuclear Antibody Screen POSITIVE (NEGATIVE)
== END 2024-08-02 16:02 | disposition home or self-care (01) ==
LOC: HO.LAB 16:01
PROVIDERS: PCP Internal Medicine Geriatric Medicine; Visit Provider Nurse Practitioner Family
DX: Z00.00 Encounter for general adult medical examination without abnormal findings (principal); R60.0 Localized edema
CPT/HCPCS: 80053; 81003; 83036; 84443; 85025; 86038; 86039; 86592; 86803; 87389; 87491; 87591

== ENCOUNTER 2024-09-05 | Outpatient (REF) | payer MEDICAID, SELFPAY ==
[2024-09-06 11:23] LABS: HPV 16,18/45 See PAP report
[2024-09-14 10:43] LABS: C. trachomatis RNA TMA Not Detected (Not Detected); N. gonorrhoeae RNA TMA Not Detected (Not Detected); Trichomonas (NAAT) Not Detected (Not Detected)
== END 2024-09-05 00:01 | disposition home or self-care (01) ==
LOC: HO.LNP
PROVIDERS: Visit Provider Nurse Practitioner Family
DX: Z12.4 Encounter for screening for malignant neoplasm of cervix (principal)
CPT/HCPCS: 87491; 87591; 87624; 87661; 88175

== ENCOUNTER 2024-10-06 15:13 | Outpatient (REF) | payer MEDICAID, SELFPAY ==
--- NOTE | ~2024-10-06 | XR_ITS ---
EXAMINATION: XR RIGHT HIP CLINICAL INFORMATION: Chronic right hip pain. COMPARISON: CT Abdomen and pelvis with contrast 03/27/2021 TECHNIQUE: 2 views of right hip. 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 FINDINGS: No fracture or joint effusion. Alignment is anatomic. Joint spaces are maintained. No arthritic changes. Femoral heads normal in contour without AVN. No abnormal soft tissue calcification. XR/XR hip RT min 2V w/wo pel IMPRESSION: Normal right hip. Electronically signed by: Salazar Chapman MD 10/17/2024 08:39 AM EST
--- NOTE | ~2024-10-06 | XR_ITS ---
CLINICAL HISTORY: left knee pain 4 view left knee Comparison: None Findings: Bones intact. No dislocations. Mild narrowing of the medial knee compartment and the lateral aspect of the patellofemoral joint. No joint effusion. No radiopaque foreign body. IMPRESSION: 1. No acute findings. This document has been electronically signed by: Isabella Encinas MD on 10/11/2024 14:35:44
== END 2024-10-06 15:14 | disposition home or self-care (01) ==
LOC: HO.XRAY 15:13
PROVIDERS: PCP Internal Medicine Geriatric Medicine; Visit Provider Family Medicine
DX: M25.551 Pain in right hip (principal); M25.562 Pain in left knee; G89.29 Other chronic pain
CPT/HCPCS: 73502; 73562

== ENCOUNTER 2025-07-26 10:48 | Inpatient (IN) | payer MEDICAID, SELFPAY ==
--- NOTE | ~2025-07-26 | CT_ITS ---
EXAMINATION: CT CHEST ANGIOGRAPHY WITH IV CONTRAST INDICATION: dyspnea COMPARISON: There are no prior studies available for comparison. TECHNIQUE: Helical CT scan of the chest was performed following administration of intravenous contrast (65 mL Omnipaque 350). The contrast bolus was timed to optimally opacify the pulmonary arteries. Thin sections were obtained through the pulmonary arteries. Coronal and sagittal reformatted images were generated. 3D/MIP reconstructed images are also obtained and reviewed. This CT exam was performed with one or more of the following dose reduction techniques: automated exposure control, adjustment of the mA and/or kV according to patient size, use of iterative reconstruction technique. DLP: 190 mGy-cm CHEST: THYROID: The thyroid gland is unremarkable. PULMONARY ARTERIES: No intraluminal filling defects are identified within the pulmonary arteries to suggest pulmonary emboli. LUNGS: There is a calcified granuloma in the right upper lobe (series 8, image 48). The lungs are otherwise clear. MEDIASTINUM: There is no mediastinal lymphadenopathy. ALYSHA: There is no hilar lymphadenopathy. CARDIOVASCULATURE: The heart is normal in size. There is no pericardial effusion. The thoracic aorta is normal in caliber. DEGREE OF CORONARY CALCIFICATION: not evaluable, due to dense contrast in the coronary arteries. PLEURA: There is no pleural effusion. No pneumothorax. MAIN AIRWAYS: The mainstem bronchi and proximal branches are patent. AXILLA: There is no axillary lymphadenopathy. UPPER ABDOMEN: The liver appears enlarged and demonstrates diffusely decreased attenuation, consistent with steatosis. The visualized portion of the spleen has an unremarkable unenhanced appearance. BONES AND SOFT TISSUES: Unremarkable. CT/CT angio chest PE protocol IMPRESSION: 1. No evidence of pulmonary emboli. Unremarkable CTA of the chest. 2. Hepatomegaly and hepatic steatosis. Electronically signed by: Reuben Nicolas MD 07/26/2025 01:31 PM EDT
--- NOTE | ~2025-07-26 | XR_ITS ---
EXAMINATION: XR ABDOMEN 1 VIEW (KUB) HISTORY: abd pain ?obstruction COMPARISON: There are no prior studies available for comparison. FINDINGS: A single supine view of the abdomen is submitted. There is a paucity of bowel gas in the upper abdomen. A small amount of gas is seen in bowel loops in the pelvis without bowel dilatation. There are phleboliths in the pelvis. There are no abnormal soft tissue masses. The bones are intact. XR/XR KUB IMPRESSION: Paucity of bowel gas. If there is clinical concern for bowel obstruction, CT is recommended. Electronically signed by: Reuben Nicolas MD 07/26/2025 11:42 AM EDT
--- NOTE | ~2025-07-26 | XR_ITS ---
EXAMINATION: XR CHEST 2 VIEWS HISTORY: chest pain, sob COMPARISON: There are no prior studies available for comparison. FINDINGS: PA and lateral views of the chest are submitted. The lungs are expanded and clear. There is no pleural effusion, pneumothorax, or pulmonary vascular congestion. The heart is normal in size. The bones are intact. XR/XR chest 2V IMPRESSION: Clear lungs. Electronically signed by: Reuben Nicolas MD 07/26/2025 11:43 AM EDT
--- NOTE | ~2025-07-26 | CT_ITS ---
EXAMINATION: CT ABDOMEN PELVIS WITH IV CONTRAST HISTORY: abdominal pain, ETOH/pancreatitis COMPARISON: Previous CT of the abdomen and pelvis most recently March 2021 TECHNIQUE: CT scan of the abdomen and pelvis was performed following administration of 85 mL Omnipaque 350 using standard departmental protocol. Coronal and sagittal reformatted images were generated and reviewed. This CT exam was performed with one or more of the following dose reduction techniques: automated exposure control, adjustment of the mA and/or kV according to patient size, use of iterative reconstruction technique. DLP: 205 mGy-cm FINDINGS: LOWER CHEST: See chest CTA report from the same day. LIVER: Enlarged fatty liver. No liver mass is identified. The hepatic and portal veins are patent. GALLBLADDER / BILE DUCTS: The gallbladder is unremarkable. There is no intra or extrahepatic biliary ductal dilatation. SPLEEN: The spleen is normal in size. No focal splenic lesion is identified. PANCREAS: The pancreas enhances normally. The head of the pancreas is slightly prominent measuring 3.8 cm in AP dimension. The body and tail of the pancreas are normal. The main pancreatic duct does not appear dilated. There is fat stranding and small amount of fluid seen surrounding the head of the pancreas and proximal duodenum and in the right anterior pararenal fascia and root of the small bowel mesentery. ADRENAL GLANDS: Within normal limits. KIDNEYS/RETROPERITONEUM: No renal calculi are identified. There is no hydronephrosis. No renal masses are identified. LYMPH NODES: No enlarged lymph nodes. VASCULATURE: Circumaortic renal vein. Normal caliber abdominal aorta. Portal and splenic veins and SMV are patent. MESENTERY/PERITONEUM: Small amount of fluid surrounding the head of the pancreas, proximal duodenum, right anterior pararenal fascia and root of the small bowel mesentery. No masses. There is no free intraperitoneal gas. STOMACH: Normal. SMALL BOWEL: The small bowel is normal in caliber. There is fluid seen surrounding the proximal duodenum. Small bowel otherwise normal. COLON: Diverticulosis of the colon. No evidence of diverticulitis. APPENDIX: Normal. URINARY BLADDER/PELVIC ORGANS: The urinary bladder is unremarkable. Uterus and adnexa are unremarkable. No pelvic mass. BONES / SOFT TISSUES: Mild degenerative changes of the spine. Postsurgical changes to the anterior abdominal wall. CT/CT abdomen pelvis w IV con IMPRESSION: Prominent pancreatic head and small amount of fluid and fat stranding surrounding the head of the pancreas, proximal duodenum, right anterior pararenal fascia and root of the small bowel mesentery. This most likely represents changes from mild interstitial pancreatitis. Differential would include duodenitis. Enlarged fatty liver. Electronically signed by: Kim Estevez MD 07/26/2025 01:36 PM EDT
--- NOTE | ~2025-07-26 | CT_ITS ---
EXAMINATION: CT ABDOMEN PELVIS WITH IV CONTRAST HISTORY: pancreatitis, ongoing abdominal pain COMPARISON: Previous CT of the abdomen and pelvis most recent July 26, 2025 TECHNIQUE: CT scan of the abdomen and pelvis was performed following administration of 85 mL Omnipaque 350 using standard departmental protocol. Coronal and sagittal reformatted images were generated and reviewed. This CT exam was performed with one or more of the following dose reduction techniques: automated exposure control, adjustment of the mA and/or kV according to patient size, use of iterative reconstruction technique. DLP: 671 mGy-cm FINDINGS: LOWER CHEST: The visualized lung bases are clear. There is no pleural effusion. CARDIOVASCULATURE: The heart is normal in size. There is no pericardial effusion. LIVER: Enlarged fatty liver. No focal lesion. GALLBLADDER / BILE DUCTS: The gallbladder is unremarkable. There is no intra or extrahepatic biliary ductal dilatation. SPLEEN: The spleen is normal in size. No focal splenic lesion is identified. PANCREAS: Prominent head of the pancreas measuring up to 4 cm. Mild fat stranding surrounding the pancreas and small amount of peripancreatic fluid. Findings questionable for mild interstitial pancreatitis. The pancreas enhances normally. No focal abnormality. No main pancreatic duct dilatation. ADRENAL GLANDS: Within normal limits. KIDNEYS/RETROPERITONEUM: No renal calculi are identified. There is no hydronephrosis. No renal masses are identified. LYMPH NODES: No abdominal or pelvic lymphadenopathy. VASCULATURE: The abdominal aorta is normal in caliber.. There is a circumaortic left renal vein. Splenic and portal veins are patent. MESENTERY/PERITONEUM: Increasing small amount of ascites in the abdomen and pelvis. Increasing fat stranding in the small bowel mesentery. Increasing thickening of the bilateral anterior pararenal fascia. STOMACH: Underdistended. SMALL BOWEL: The small bowel is normal in caliber. COLON: While diverticulosis of the colon. The colon is otherwise unremarkable. APPENDIX: Normal. URINARY BLADDER/PELVIC ORGANS: Underdistended bladder. Uterus and adnexa are unremarkable. BONES / SOFT TISSUES: Increasing subcutaneous edema or anasarca. Mild degenerative changes of the lower lumbar spine. CT/CT abdomen pelvis w IV con IMPRESSION: Increasing peripancreatic fat stranding and small amount of fluid and in the bilateral anterior pararenal fascia. Findings are suggestive of mild interstitial pancreatitis. The pancreas enhances normally without focal abnormality. The head of the pancreas is slightly enlarged. Increasing small amount of ascites in the abdomen and pelvis. Enlarged fatty liver. Electronically signed by: Kim Estevez MD 08/01/2025 04:55 PM EDT
[2025-07-26 11:02] VITALS: BP 150/98; PULSE 120; RESP 20; TEMP 36.7; O2SAT 98; BMI 28.6
--- NOTE | 2025-07-26 11:02 | ED.GENADULT ---
HPI - General Adult General Chief complaint: General Medical Stated complaint: Asthma Shortness Of Breath Time Seen by Provider: 07/26/25 11:57 Source: patient Mode of arrival: ambulatory Limitations: no limitations History of Present Illness ED Provider: HPI narrative: 40-year-old woman presenting with increase in a bulge as she describes it in the epigastric and right upper quadrant, worse for the past month or 2, she is a daily drinker, reported last drank to be 8 hours ago, no history of alcohol withdrawal seizures, feels like she is losing weight +20 lb and has potential yellowing of her eyes, and yesterday started developing palpitations, anxiety and shortness of breath associated with that but mostly the abdominal pain is what is bothering her. Has not been taking any of her regular medications that she takes for bipolar disorder for the past 2 months, denies any other drug use. Related Data Home Medications ?Medication ?Instructions ?Recorded ?Confirmed bupropion HCl 300 mg 24 hr tablet, 300 mg PO QAM 07/11/20 04/02/21 extended release (Wellbutrin XL) dextroamphetamine-amphetamine 20 20 mg PO DAILY@1500 07/11/20 04/02/21 mg tablet (Adderall) dextroamphetamine-amphetamine 20 40 mg PO DAILY 07/11/20 04/02/21 mg tablet (Adderall) amlodipine 2.5 mg tablet 1 tab PO DAILY 03/26/21 04/02/21 aripiprazole 5 mg tablet 5 mg PO BEDTIME 03/26/21 04/02/21 bupropion HCl 150 mg 24 hr tablet, 150 mg PO QAM 03/26/21 04/02/21 extended release cholecalciferol (vitamin D3) 50 1 cap PO DAILY 03/26/21 04/02/21 mcg (2,000 unit) capsule risperidone 0.25 mg tablet 1 tab PO DAILY PRN anxiety 03/26/21 04/02/21 risperidone 1 mg tablet 1 - 2 mg PO BEDTIME 03/26/21 04/02/21 spironolactone 50 mg tablet 2 tab PO DAILY 03/26/21 04/02/21 Allergies Allergy/AdvReac Type Severity Reaction Status Date / Time citalopram (From CELEXA) Allergy Unknown JITTERY Verified 07/26/25 11:08 Review of Systems Constitutional: Constitutional: Reports as per HPI PMFSH Past Medical History Medical History Bipolar disorder Other postprocedural complications of skin and subcutaneous tissue Surgical History History of abdominoplasty Status post panniculectomy Social History Social History Household Members: Children Housing: House Alcohol intake: current Patient Tobacco Use Status: Current everyday Tobacco user Tobacco use type: Cigarette Substance Use Type: Marijuana Advance Directives: No Advance Directives Information Provided: No service: No Current occupational status: unemployed Gender identity: Female Physical Exam ED Exam Exam: General: ?Appears of stated age ? ?possibly slight scleral icterus ? Neck: Supple, no LAD ? ?CV: RRR, no obvious murmurs appreciated ? ?Resp: ?No wheezing rales rhonchi no stridor moving air well ? Abd: ?Bowel sounds are present, she has obvious hepatomegaly, tenderness throughout ? ?MSK: FROM, strength 5/5 all extremities ? Skin: Warm, dry, intact, did not appreciate jaundice ? ?Neuro: ?Alert and oriented x3, moving upper and lower extremities symmetrically, no obvious facial asymmetry noted, cranial nerves 2-12 intact Vital Signs: Vital Signs - 24 hr 07/26/25 11:02 07/26/25 12:37 07/26/25 13:56 Temperature 98.1 F Pulse Rate 120 H Respiratory Rate 20 16 16 Blood Pressure 150/98 H Pulse Oximetry 98 Oxygen Delivery Method Room Air BMI result Body Mass Index 28.6 Course Course Course Narrative: This is a Rapid Medical Examination (RME) performed by Akanksha Richards PA-C in triage. Full HPI, ROS, assessment and treatment plan per primary provider in the Main ED. Hx: 40 yo F hx bipolar disorder, etoh abuse, HTN here for eval of upper abdominal bloating x1 mo, now having upper abdominal pain, yellowing to her eyes, chest pain, and shortness of breath x1 week. admits to increasing life stressors. she is a daily drinker, approx a 5th of liquor daily. last consumed etoh 8 hours ago. hx withdrawal, no seizures. has not been on any of her home meds x2 months. admits to [facility], passing flatus. PE/vitals: intermittently tearful, abd distended, firm, diffusely ttp. Plan: labs, UA, ekg, xrs Medications Administered Generic Name Dose Route Start Last Admin Trade Name Patricia PRN Reason Stop Dose Admin Lactated Ringer's 1,000 mls @ 0 mls/hr 07/26/25 12:45 07/26/25 13:56 Lr IV Infused .Q0M GONZALO Infusion Wide Open Discontinued Medications Generic Name Dose Route Start Last Admin Trade Name Patricia PRN Reason Stop Dose Admin Diazepam 2.5 mg 07/26/25 12:29 07/26/25 12:37 Diazepam 10 Mg/2 Ml Cartridge IVPUSH 07/26/25 12:30 2.5 mg STAT STA Administration Hydromorphone HCl 0.5 mg 07/26/25 13:32 07/26/25 13:56 Hydromorphone Hcl 0.5 Mg/0.5 Ml Syringe IVPUSH 07/26/25 13:33 0.5 mg ONCE ONE Administration Protocol Iohexol 100 ml 07/26/25 13:01 07/26/25 13:01 Iohexol 350 Mg/Ml 100 Ml Infus..Btl IV 07/26/25 13:02 65 ml ONCE ONE Administration Ketorolac Tromethamine 15 mg 07/26/25 12:26 07/26/25 12:37 Ketorolac Tromethamine 15 Mg/Ml Vial IVPUSH 07/26/25 12:27 15 mg ONCE ONE Administration Morphine Sulfate 4 mg 07/26/25 12:26 07/26/25 12:37 Morphine Sulfate 4 Mg/Ml Cartridge IVPUSH 07/26/25 12:27 4 mg ONCE ONE Administration Protocol Medical Decision Making Medical Decision Making MDM Narrative: 12:34 PM 07/26/2025 (Dr. Aquilino Griffith): Patient is presenting with hepatomegaly on physical examination, hepatitis, pancreatitis, on blood work, we will obtain further imaging to evaluate for any obvious biliary pathology but this is unlikely giving her history, she states last drink was 8 hours ago however his alcohol level is still quite high to 50, anticipating admission, pain control, we will obtain hepatitis labs to make sure it is not infectious, INR, drug screen but she denies use any drugs except for marijuana. Blood work also reveals increased anion gap, we will add on lactic acid and acetone to evaluate for source, she is not hyperglycemic to suspect diabetic ketoacidosis, and I anticipate that this is likely alcoholic ketosis and lactic possibly elevated due to liver failure. 2:02 PM 07/26/2025 (Dr. Aquilino Griffith): As anticipated her lactic is elevated due to liver disease, and that also explain why she has elevated gap Differential Diagnosis Differential Diagnoses: The differential diagnosis associated with the presentation includes (Alcoholic hepatitis, pancreatitis, infectious pancreatitis, SBO, cholecystitis, cholangitis) Admission/Observation Consideration of admission/observation: Escalation of care including admission/observation considered Consult Healthcare Provider Management of the patient was discussed with: Hospitalist Lab Data MDM Lab Attestation statement: I reviewed the patient's lab results. 07/26/25 11:21 07/26/25 11:21 Labs: Lab Results 07/26/25 07/26/25 07/26/25 Range/Units 11:20 11:21 13:23 WBC 8.4 (4.8-10.8) X10*3/uL RBC 3.40 L (4.20-5.50) X10*6/uL Hgb 12.2 (12.0-16.0) g/dl Hct 35.7 L (37.0-47.0) % MCV 105.0 H (80.0-98.0) fL MCH 35.9 H (27.0-33.0) pg MCHC 34.2 (31.0-35.0) g/dl RDW 16.6 H (11.0-16.0) % Plt Count 149 L D (160-400) X10*3/uL MPV 9.1 L (9.4-12.3) fL Immature Gran % (Auto) 0.6 H (0.0-0.4) % Neut % (Auto) 82.6 H (45-73) % Lymph % (Auto) 11.2 L (20-40) % [place] % (Auto) 5.1 (2-11) % Eos % (Auto) 0.1 (0-4) % Baso % (Auto) 0.4 (0-2) % Lymph # (Auto) 0.9 L (1.2-4.9) X10*3/uL [place] # (Auto) 0.4 (0.1-1.2) X10*3/uL Eos # (Auto) 0.0 (0.0-0.4) X10*3/uL Baso # (Auto) 0.0 (0.0-0.2) X10*3/uL Abs Immat Gran (auto) 0.05 H (0.00-0.03) X10*3/uL Absolute Neuts (auto) 7.0 (2.0-8.3) x10*3/uL Absolute Nucleated RBC 0.020 H (0.0-0.012) X10*3/uL Nucleated RBC % (auto) 0.2 (0.0-0.2) /100WBC PT 15.3 H (10.9-12.4) SEC INR 1.3 H (0.9-1.1) Sodium 135 (135-145) mmol/L Potassium 3.4 (3.3-5.1) mmol/L Chloride 94 L (96-108) mmol/L Carbon Dioxide 13 L (22-29) mmol/L Anion Gap 31 H (12-20) BUN 9 (9-16) mg/dL Creatinine 0.52 (0.5-1.4) mg/dL Estim Creat Clear Calc 149.9 Estimated GFR > 60 Random Glucose 76 (60-115) mg/dL Lactic Acid 3.6 H* (0.5-2.0) mmol/L Calcium 9.3 D (8.4-10.2) mg/dL Magnesium 1.8 (1.6-2.6) mg/dL Total Bilirubin 3.1 H (0.0-1.0) mg/dL AST 306 H (5-31) U/L ALT 41 H (0-31) U/L Alkaline Phosphatase 426 H (39-117) U/L Troponin I High Sens < 2.7 (<3.5-17.0) ng/L Total Protein 8.3 H (6.5-8.0) g/dL Albumin 4.6 (3.5-5.0) g/dL Lipase 541 H (8-78) U/L Beta HCG, Quant < 2 mIU/mL Acetaminophen < 3 (<30) mcg/mL Ethyl Alcohol 251 mg/dL Independent Interpretation I performed an independent interpretation of an: EKG (109 beats per minute otherwise normal ECG without dysrhythmia, AV cher blocks or ST-T changes to suspect underlying ACS, my independent interpretation) and Plain X-Ray (My independent chest xray interpretation: Lungs: Lungs are clear bilaterally without evidence of focal consolidation, pleural effusion, or pneumothorax. Cardiac silhouette is unremarkable, no obvious mediastinal widening, no obvious bony abnormalities such as fractures. Impression: Normal chest X-r) Radiology Impression Discussion of test interpretation with radiology: I have reviewed the radiologist's reading. Radiologist Impression: CT/CT angio chest PE protocol IMPRESSION: 1. No evidence of pulmonary emboli. Unremarkable CTA of the chest. 2. Hepatomegaly and hepatic steatosis MPRESSION: Prominent pancreatic head and small amount of fluid and fat stranding surrounding the head of the pancreas, proximal duodenum, right anterior pararenal fascia and root of the small bowel mesentery. This most likely represents changes from mild interstitial pancreatitis. Differential would include duodeniti Critical Care Time Critical Care Time Critical Care Time: Yes Total Critical Care Time: 35 Attestation: Time is exclusive of separately billable procedures. Time includes: direct patient care, patient reassessment, coordination of patient care, interpretation of data (laboratory data, pulse oximetry, arterial blood gases and chest xrays), review of patient's medical records, medical consultation and documentation of patient care. Procedures excluded from critical care time: central intravenous line placement and electrocardiography. Discharge Plan Discharge Clinical Impression: Alcoholic hepatitis Qualifiers: Ascites presence: without ascites Qualified Code(s): K70.10 - Alcoholic hepatitis without ascites Acute alcoholic pancreatitis Qualifiers: Acute pancreatitis complication: no infection or necrosis Qualified Code(s): K85.20 - Alcohol induced acute pancreatitis without necrosis or infection Prescriptions: No Action spironolactone 50 mg tablet 2 tab PO DAILY risperidone 0.25 mg tablet 1 tab PO DAILY PRN (Reason: anxiety) amlodipine 2.5 mg tablet 1 tab PO DAILY risperidone 1 mg tablet 1 - 2 mg PO BEDTIME aripiprazole 5 mg tablet 5 mg PO BEDTIME bupropion HCl 150 mg tablet extended release 24 hr 150 mg PO QAM Rx Instructions: takes with wellbutrin xl 300 mg cholecalciferol (vitamin D3) 50 mcg (2,000 unit) capsule 1 cap PO DAILY bupropion HCl [Wellbutrin XL] 300 mg tablet extended release 24 hr 300 mg PO QAM dextroamphetamine-amphetamine [Adderall] 20 mg tablet 40 mg PO DAILY dextroamphetamine-amphetamine [Adderall] 20 mg tablet 20 mg PO DAILY@1500 Print Language: Gibraltarian
--- NOTE | 2025-07-26 11:07 | ECG_ITS ---
Test Reason : cp,asthma Blood Pressure : */* mmHG Vent. Rate : 109 BPM Atrial Rate : 109 BPM P-R Int : 132 ms QRS Dur : 90 ms QT Int : 346 ms P-R-T Axes : 56 48 36 degrees QTcB Int : 465 ms Sinus tachycardia Otherwise normal ECG When compared with ECG of 01-Jun-2020 17:54, No significant change was found Referred By: Saumya Richards Electronically Signed By: JOCELINE PADRON MD
[2025-07-26 11:28] LABS: MANUAL DIFF FLAG NO
[2025-07-26 11:42] LABS: Hematocrit 35.7 % (37.0-47.0); Hemoglobin 12.2 g/dl (12.0-16.0); Imm Gran Abs Auto 0.05 X10*3/uL (0.00-0.03); Imm Gran Pct Auto 0.6 % (0.0-0.4); Lymphocytes Absolute Auto 0.9 X10*3/uL (1.2-4.9); Mean Corpuscular HGB Conc 34.2 g/dl (31.0-35.0); Mean Corpuscular Hemoglobin 35.9 pg (27.0-33.0); Mean Corpuscular Volume 105.0 fL (80.0-98.0); NRBC Abs Auto 0.020 X10*3/uL (0.0-0.012); NRBC Pct Auto 0.2 /100WBC (0.0-0.2); Red Blood Count 3.40 X10*6/uL (4.20-5.50); White Blood Count 8.4 X10*3/uL (4.8-10.8)
[2025-07-26 11:50] LABS: Alanine Aminotransferase 41 U/L (0-31); Albumin Level 4.6 g/dL (3.5-5.0); Alkaline Phosphatase 426 U/L (39-117); Anion Gap 31 (12-20); Aspartate Amino Transferase 306 U/L (5-31); Blood Urea Nitrogen 9 mg/dL (9-16); Calcium 9.3 mg/dL (8.4-10.2); Carbon Dioxide 13 mmol/L (22-29); Chloride 94 mmol/L (96-108); Creatinine Clr Calc Pharmacy 149.9; Estimated Glomerular Filt Rate > 60; Magnesium 1.8 mg/dL (1.6-2.6); Potassium 3.4 mmol/L (3.3-5.1); Sodium 135 mmol/L (135-145); Total Protein 8.3 g/dL (6.5-8.0)
[2025-07-26 11:56] LABS: Troponin-I High Sensitivity < 2.7 ng/L (<3.5-17.0)
[2025-07-26 12:01] LABS: Lipase 541 U/L (8-78)
[2025-07-26 12:10] LABS: Platelet Count 149 X10*3/uL (160-400)
[2025-07-26 12:37] VITALS: RESP 16
[2025-07-26] MEDS: diazePAM 10 MG/2 ML CARTRIDGE 2.5 MG IVPUSH (12:37)
[2025-07-26] MEDS: Lactated Ringers 1,000 ML 999 ML IV (12:58)
[2025-07-26] MEDS: iohexoL 350 MG/ML 100 ML INFUS..BTL IV (13:01)
[2025-07-26 13:41] LABS: INTERNATIONAL NORM RATIO 1.3 (0.9-1.1); Prothrombin Time 15.3 SEC (10.9-12.4)
[2025-07-26 13:52] LABS: Acetaminophen LAB < 3 mcg/mL (<30)
[2025-07-26 13:56] VITALS: RESP 16
--- NOTE | 2025-07-26 14:17 | PM.IMHP ---
History of Present Illness Date of Service: 07/26/25 Chief Complaint: abd pain 40F PMH bipolar, alcohol dependence, hypertension presented with abdominal pain. Patient states she has had boggy feeling in the abdomen for several months but over the last 2 days has had severe epigastric pain with inability to tolerate p.o.. Her drinking has also decreased. She usually drinks a 5th of hard alcohol per day. She has noticed jaundice. In ED noted to have elevated bilirubin, pancreatitis on CAT scan. Review of Systems Review of Systems: Yes all other systems are reviewed and are negative [facility] Medical History Other postprocedural complications of skin and subcutaneous tissue Bipolar disorder Surgical History Status post panniculectomy History of abdominoplasty Social History Household Members: Children Housing: House Alcohol intake: current Patient Tobacco Use Status: Current everyday Tobacco user Tobacco use type: Cigarette Substance Use Type: Marijuana Advance Directives: No Advance Directives Information Provided: No service: No Current occupational status: unemployed Gender identity: Female Meds Allergies Allergy/AdvReac Type Severity Reaction Status Date / Time citalopram (From CELEXA) Allergy Unknown [facility] Verified 07/26/25 11:08 Active Medications: Current Medications Acetaminophen (Acetaminophen 325 Mg Tablet) 650 mg PO Q6H PRN PRN Reason: Pain, Mild 1-3,fever,headache Calcium Carbonate (Calcium Carbonate 750 Mg Tab.Chew) 750 mg PO Q4H PRN PRN Reason: Heartburn Enoxaparin Sodium (Enoxaparin Sodium 40 Mg/0.4 Ml Syringe) 40 mg SUBCUT Q24H GONZALO Hydromorphone HCl (Hydromorphone Hcl 0.5 Mg/0.5 Ml Syringe) 0.5 mg IVPUSH Q4H PRN; Protocol PRN Reason: Pain, Severe (Pain Scale 7-10) Lactated Ringer's (Lr) 1,000 mls @ 0 mls/hr IV .Q0M GONZALO Last Infusion: 07/26/25 13:56 Dose: Infused Lactated Ringer's (Lr) 1,000 mls @ 100 mls/hr IVCONT .Q10H GONZALO Magnesium Hydroxide (Milk Of Magnesia 30 Ml Oral.Susp) 30 ml PO DAILY PRN PRN Reason: Constipation Melatonin (Melatonin 3 Mg Tablet) 6 mg PO BEDTIME PRN PRN Reason: Insomnia Sodium Chloride (0.9 % Sodium Chloride Flush 3 Ml Syringe) 3 ml IVFLUSH QSHIFT GONZALO Home Medications ?Medication ?Instructions ?Recorded ?Confirmed ?Last Taken ?Type bupropion HCl 300 mg 24 hr tablet, 300 mg PO QAM 07/11/20 04/02/21 03/24/21 History extended release (Wellbutrin XL) dextroamphetamine-amphetamine 20 20 mg PO DAILY@1500 07/11/20 04/02/21 03/25/21 History mg tablet (Adderall) dextroamphetamine-amphetamine 20 40 mg PO DAILY 07/11/20 04/02/21 03/24/21 History mg tablet (Adderall) amlodipine 2.5 mg tablet 1 tab PO DAILY 03/26/21 04/02/21 03/24/21 History aripiprazole 5 mg tablet 5 mg PO BEDTIME 03/26/21 04/02/21 03/24/21 History bupropion HCl 150 mg 24 hr tablet, 150 mg PO QAM 03/26/21 04/02/21 03/24/21 History extended release cholecalciferol (vitamin D3) 50 1 cap PO DAILY 03/26/21 04/02/21 03/24/21 History mcg (2,000 unit) capsule risperidone 0.25 mg tablet 1 tab PO DAILY PRN anxiety 03/26/21 04/02/21 Unknown History risperidone 1 mg tablet 1 - 2 mg PO BEDTIME 03/26/21 04/02/21 03/24/21 History spironolactone 50 mg tablet 2 tab PO DAILY 03/26/21 04/02/21 03/24/21 History Physical Exam Vital Signs and Narrative: Vital Signs: Last Vital Signs Temp 98.1 F 07/26/25 11:02 Pulse 120 H 07/26/25 11:02 Resp 16 07/26/25 13:56 BP 150/98 H 07/26/25 11:02 Pulse Ox 98 07/26/25 11:02 O2 Del Method Room Air 07/26/25 11:02 BMI result Body Mass Index 28.6 General: AO X 3, in pain, jaundice Resp: CTA bilateral, no accessory muscles used CVS: S1,S2,RRR GI: soft, tender, non distended Neuro: motor grossly intact, alert Psych: appropriate affect, appropriate insight Results Labs 07/26/25 11:21 07/26/25 11:21 Labs: Laboratory Results - last 24 hr 07/26/25 07/26/25 07/26/25 11:20 11:21 13:23 MCV 105.0 H MCH 35.9 H MCHC 34.2 RDW 16.6 H Plt Count 149 L D MPV 9.1 L Immature Gran % (Auto) 0.6 H Neut % (Auto) 82.6 H Lymph % (Auto) 11.2 L [place] % (Auto) 5.1 Eos % (Auto) 0.1 Baso % (Auto) 0.4 Lymph # (Auto) 0.9 L [place] # (Auto) 0.4 Eos # (Auto) 0.0 Baso # (Auto) 0.0 Abs Immat Gran (auto) 0.05 H Absolute Neuts (auto) 7.0 Absolute Nucleated RBC 0.020 H Nucleated RBC % (auto) 0.2 PT 15.3 H INR 1.3 H Anion Gap 31 H Estim Creat Clear Calc 149.9 Estimated GFR > 60 Random Glucose 76 Lactic Acid 3.6 H* Calcium 9.3 D Magnesium 1.8 Total Bilirubin 3.1 H AST 306 H ALT 41 H Alkaline Phosphatase 426 H Troponin I High Sens < 2.7 Total Protein 8.3 H Albumin 4.6 Lipase 541 H Beta HCG, Quant < 2 Acetaminophen < 3 Ethyl Alcohol 251 Imaging Radiologist's Impressions: Impressions Chest X-Ray 07/26/25 11:10 IMPRESSION: Clear lungs. Electronically signed by: Reuben Nicolas MD 07/26/2025 11:43 AM EDT RP KUB X-Ray 07/26/25 11:10 IMPRESSION: Paucity of bowel gas. If there is clinical concern for bowel obstruction, CT is recommended. Electronically signed by: Reuben Nicolas MD 07/26/2025 11:42 AM EDT RP Abdomen/Pelvis CT 07/26/25 12:44 IMPRESSION: Prominent pancreatic head and small amount of fluid and fat stranding surrounding the head of the pancreas, proximal duodenum, right anterior pararenal fascia and root of the small bowel mesentery. This most likely represents changes from mild interstitial pancreatitis. Differential would include duodenitis. Enlarged fatty liver. Electronically signed by: Kim Estevez MD 07/26/2025 01:36 PM EDT RP Chest CTA 07/26/25 12:44 IMPRESSION: 1. No evidence of pulmonary emboli. Unremarkable CTA of the chest. 2. Hepatomegaly and hepatic steatosis. Electronically signed by: Reuben Nicolas MD 07/26/2025 01:31 PM EDT RP Assessment and Plan (1) Alcoholic hepatitis: Qualifiers: Ascites presence: without ascites Qualified Code(s): K70.10 - Alcoholic hepatitis without ascites Status: Acute Plan 40F PMH bipolar, alcohol dependence, hypertension presented with abdominal pain Acute alcoholic hepatitis Encourage p.o. intake, monitor LFTs Acute alcoholic pancreatitis IV fluids, pain meds, advance diet as tolerated Alcohol dependence At high-risk for withdrawal, monitor CIWA, addiction eval Vitamin supplement Bipolar Mood stabilizers DVT prophylaxis with Lovenox Full code Given patient's high-risk for alcohol withdrawal as well as acute alcoholic hepatitis expected require at least 2 midnights inpatient to monitor for improving liver function and more likely need to start treatment with for withdrawal Quality Stroke Does the patient have a stroke diagnosis?: No VTE Prior VTE?: No VTE Risk Level:: Medical - moderate - high VTE Device Contraindication: Treatment Not Indicated VTE Drug Contraindication: N/A - Med Ordered
[2025-07-26] MEDS: Lactated Ringers 1,000 ML 100 ML IVCONT (14:30)
--- NOTE | 2025-07-26 14:37 | PHA.MEDREC ---
Addendum entered by Jami Monaco RPh 07/26/25 14:52: MED REC REVIEWED BY [facility]. Dr. Alaniz was made aware of what patient told us. Original Note: Pharmacy Consult ? Medication Reconciliation Pharmacy has completed the medication reconciliation. Patient states she takes Risperidone 12 mg, however last fill date was 12/08/24 for 20 days, Bupropion sr 150, last fill date 12/06/24 for 30 days and Bupropion 300 mg no fill history, Olmesartan 20 mg-HCTZ 12.5 , last fill date 11/08/24 for 90 days and Trileptal *not sure the dose. was getting at a treatment center, but rather not say what treatment center she was at. Patient states she hasn't taken any medications in over a month.
[2025-07-26 15:27] LABS: Reflex Lactate? Lactic Acid Added
--- NOTE | 2025-07-26 15:44 | PC.NURSE ---
Pt refuses labs, explained significance to pt - pt still refuses.
[2025-07-26 17:56] VITALS: BP 151/91; PULSE 113; RESP 26; TEMP 36.4; O2SAT 98
[2025-07-26 18:12] LABS: Appearance Urine Clear; Glucose Urine UA Negative (Negative); PH 6.0 (5.0-9.0); Specific Gravity - Urine >= 1.030 (1.005-1.025); UMIC TRIGGER UACC YES
[2025-07-26 18:21] LABS: UACC Culture Trigger YES
[2025-07-26 18:24] LABS: Cannabinoid Screen Urine POSITIVE (Not Detect)
[2025-07-26 20:12] LABS: Cancel Lactic Acid Canceled
[2025-07-26 21:28] VITALS: BP 117/76; PULSE 89; RESP 20; TEMP 36.6; O2SAT 98
[2025-07-27] VITALS (7 sets, daily range): BP systolic 110–137; BP diastolic 66–90; PULSE 91–99; RESP 16–20; TEMP 36.6–37; O2SAT 95–100; BMI 30.4
[2025-07-27] MEDS: Lactated Ringers 1,000 ML 100 ML IVCONT ×3 (00:55→20:03)
[2025-07-27 03:50] LABS: HBS Num1 18.40 mIU/mL (0-7.99); HBc Num1 0.11 S/CO (0.00-0.79); HBsAGNum1 0.42 S/CO (0.00-0.99); Hepatitis A Antibody IgM 0.19 Index (0-0.79); Hepatitis B Surface Antigen Negative (Negative); ~HepC Num1 0.10 S/CO (0.00-0.79); ~Hepatitis A Antibody IgM Nonreactive (Nonreactive); ~Hepatitis B Surface Antibody REACTIVE (Nonreactive); ~Hepatitis C Antibody Nonreactive (Nonreactive)
--- NOTE | 2025-07-27 03:51 | HO.NURTONUR ---
pt presents to ED for upper abd pain. ADMIT: acute alcoholic hepatitis/pancreatitis. elevated LFTs/lipase. lactic was elevated but refused additional labs in ED. hep panel pending. NSR on tele. 20g LAC. LR infusing 100mls/hr A/O x4, calm and cooperative with care, ambulates independently at baseline. pain hard to control at times. denies hx of withdrawal seizures. CIWA q4. addiction consult.
[2025-07-27 05:24] LABS: Hematocrit 29.7 % (37.0-47.0); Hemoglobin 10.2 g/dl (12.0-16.0); Mean Corpuscular HGB Conc 34.3 g/dl (31.0-35.0); Mean Corpuscular Hemoglobin 36.2 pg (27.0-33.0); Mean Corpuscular Volume 105.3 fL (80.0-98.0); NRBC Abs Auto 0.000 X10*3/uL (0.0-0.012); NRBC Pct Auto 0.0 /100WBC (0.0-0.2); Platelet Count 119 X10*3/uL (160-400); Red Blood Count 2.82 X10*6/uL (4.20-5.50); White Blood Count 6.0 X10*3/uL (4.8-10.8)
[2025-07-27 05:31] LABS: INTERNATIONAL NORM RATIO 1.3 (0.9-1.1); Prothrombin Time 15.2 SEC (10.9-12.4)
[2025-07-27 05:47] LABS: Alanine Aminotransferase 29 U/L (0-31); Albumin Level 3.8 g/dL (3.5-5.0); Alkaline Phosphatase 310 U/L (39-117); Anion Gap 24 (12-20); Aspartate Amino Transferase 199 U/L (5-31); Blood Urea Nitrogen 5 mg/dL (9-16); Calcium 8.7 mg/dL (8.4-10.2); Carbon Dioxide 19 mmol/L (22-29); Chloride 97 mmol/L (96-108); Creatinine Clr Calc Pharmacy 162.4; Estimated Glomerular Filt Rate > 60; Magnesium 1.5 mg/dL (1.6-2.6); Potassium 3.5 mmol/L (3.3-5.1); Sodium 136 mmol/L (135-145); Total Protein 7.0 g/dL (6.5-8.0)
[2025-07-27] MEDS: Thiamine HCL 100 MG in 0.9 % Sodium Chloride 100 ML 202 MG IV (08:40)
--- NOTE | 2025-07-27 08:59 | PC.NURSE ---
Pt consistently in alot of discomfort and asking for more pain medication at least an hour before it is due. MD Busch made aware, stated he would order the Dilaudid every 3 hours instead of 4. Pt updated.
[2025-07-27] MEDS: PHENobarbitaL sodium 130 MG/ML IM ONCE 228 MG IM (10:10)
--- NOTE | 2025-07-27 10:27 | MHC.CM.PN ---
CM met with Patient at bedside, in the ED. Patient lives ion a house with her Friend/Clemencia and home/self care is her goal.CM has initiated and will follow for dc planning. PCP is Dr. Delacruz Name and Patient may require assist with transport at dc.
--- NOTE | 2025-07-27 11:33 | HO.PM.IMPN ---
Subjective Subjective Date of Service: 07/27/25 Interval History: didnt tolerate solids, having withdrawal Physical Exam Exam: Exam: General: AO X 3, in pain, jaundice Resp: CTA bilateral, no accessory muscles used CVS: S1,S2,RRR GI: soft, tender, non distended Neuro: motor grossly intact, alert Psych: appropriate affect, appropriate insight Vital Signs: Vital Signs: Last Vital Signs Temp 97.9 F 07/27/25 01:42 Pulse 91 07/27/25 08:34 Resp 18 07/27/25 08:34 BP 136/90 H 07/27/25 08:34 Pulse Ox 99 07/27/25 08:34 O2 Del Method Room Air 07/27/25 08:34 BMI result Body Mass Index 28.6 Objective Data Active Medications Acetaminophen (Acetaminophen 325 Mg Tablet) 650 mg PO Q6H PRN PRN Reason: Pain, Mild 1-3,fever,headache Last Admin: 07/27/25 08:35 Dose: 650 mg Documented By: DUY Calcium Carbonate (Calcium Carbonate 750 Mg Tab.Chew) 750 mg PO Q4H PRN PRN Reason: Heartburn Enoxaparin Sodium (Enoxaparin Sodium 40 Mg/0.4 Ml Syringe) 40 mg SUBCUT Q24H [facility] Last Admin: 07/27/25 08:40 Dose: Not Given Documented By: DUY Non-Admin Reason: Patient Refused Folic Acid (Folic Acid 1 Mg Tablet) 1 mg PO DAILY [facility] Last Admin: 07/27/25 08:36 Dose: 1 mg Documented By: DUY Hydromorphone HCl (Hydromorphone Hcl 0.5 Mg/0.5 Ml Syringe) 0.5 mg IVPUSH Q3H PRN; Protocol PRN Reason: Breakthrough Pain Last Admin: 07/27/25 09:06 Dose: 0.5 mg Documented By: DUY Lactated Ringer's (Lr) 1,000 mls @ 100 mls/hr IVCONT .Q10H [facility] Last Admin: 07/27/25 00:55 Dose: 100 mls/hr Documented By: STEVE Thiamine HCl 100 mg/ Sodium (Chloride) 101 mls @ 202 mls/hr IV DAILY [facility] Last Infusion: 07/27/25 09:10 Dose: Infused Documented By: DUY Magnesium Hydroxide (Milk Of Magnesia 30 Ml Oral.Susp) 30 ml PO DAILY PRN PRN Reason: Constipation Magnesium Oxide (Magnesium Oxide 400 Mg Tablet) 800 mg PO BIDPC [facility] Last Admin: 07/27/25 08:36 Dose: 800 mg Documented By: DUY Melatonin (Melatonin 3 Mg Tablet) 6 mg PO BEDTIME PRN PRN Reason: Insomnia Last Admin: 07/27/25 00:59 Dose: 6 mg Documented By: STEVE Multivitamins/Vitamin C (Multivitamin Tablet) 1 tab PO DAILY [facility] Last Admin: 07/27/25 08:40 Dose: Not Given Documented By: DUY Non-Admin Reason: Patient Refused Pharmacy Consult (Consult Rx Etoh Phenob Im/Po) 1 each MISCELLANE ONCE PRN; Protocol PRN Reason: Consult order Phenobarbital (Phenobarbital 15 Mg Tablet) 45 mg PO BID [facility]; Protocol Stop: 07/29/25 09:01 Phenobarbital (Phenobarbital 15 Mg Tablet) 15 mg PO BID [facility]; Protocol Stop: 07/31/25 09:01 Phenobarbital (Phenobarbital 15 Mg Tablet) 15 mg PO DAILY [facility]; Protocol Stop: 08/02/25 09:01 Phenobarbital Sodium (Phenobarbital Sodium 130 Mg/Ml Vial Im Q3hx2) 171 mg IM Q3H [facility]; Protocol Stop: 07/27/25 16:01 Sodium Chloride (0.9 % Sodium Chloride Flush 3 Ml Syringe) 3 ml IVFLUSH QSHIFT [facility] Last Admin: 07/27/25 07:15 Dose: Not Given Documented By: DUY Non-Admin Reason: IV Running Labs 07/27/25 04:35 07/27/25 04:34 Labs: Laboratory Results - last 24 hr 07/26/25 07/26/25 07/26/25 11:20 11:21 13:23 MCV 105.0 H MCH 35.9 H MCHC 34.2 RDW 16.6 H Plt Count 149 L D MPV 9.1 L Immature Gran % (Auto) 0.6 H Neut % (Auto) 82.6 H Lymph % (Auto) 11.2 L [place] % (Auto) 5.1 Eos % (Auto) 0.1 Baso % (Auto) 0.4 Lymph # (Auto) 0.9 L [place] # (Auto) 0.4 Eos # (Auto) 0.0 Baso # (Auto) 0.0 Abs Immat Gran (auto) 0.05 H Absolute Neuts (auto) 7.0 Absolute Nucleated RBC 0.020 H Nucleated RBC % (auto) 0.2 PT 15.3 H INR 1.3 H Anion Gap 31 H Estim Creat Clear Calc 149.9 Estimated GFR > 60 Random Glucose 76 Lactic Acid 3.6 H* Calcium 9.3 D Magnesium 1.8 Total Bilirubin 3.1 H Direct Bilirubin AST 306 H ALT 41 H Alkaline Phosphatase 426 H Troponin I High Sens < 2.7 Total Protein 8.3 H Albumin 4.6 Lipase 541 H Beta-Hydroxybutyrate 8.43 H Beta HCG, Quant < 2 Urine Color Urine Appearance Urine pH Ur Specific [place] Urine Protein Urine Glucose (UA) Urine Ketones Urine Blood Urine Nitrite Ur Leukocyte Esterase Urine RBC Urine WBC Ur Squamous Epith Cells Urine Bacteria Hyaline Casts Urine Opiates Screen Ur Buprenorphine Scrn Ur Oxycodone Screen Urine Methadone Screen Urine Fentanyl Screen Acetaminophen < 3 Ur Barbiturates Screen Ur Phencyclidine Scrn Ur Amphetamines Screen U Benzodiazepines Scrn Urine Cocaine Screen U Marijuana (THC) Screen Ethyl Alcohol 251 Hepatitis A IgM Ab Nonreactive Hep Bs Antigen Negative Hep Bs Antibody REACTIVE Hep B Core Total Ab Nonreactive Hepatitis C Ab (EIA) Nonreactive 07/26/25 07/27/25 07/27/25 18:02 04:34 04:35 MCV 105.3 H MCH 36.2 H MCHC 34.3 RDW 16.4 H Plt Count 119 L MPV 9.9 Immature Gran % (Auto) Neut % (Auto) Lymph % (Auto) [place] % (Auto) Eos % (Auto) Baso % (Auto) Lymph # (Auto) [place] # (Auto) Eos # (Auto) Baso # (Auto) Abs Immat Gran (auto) Absolute Neuts (auto) Absolute Nucleated RBC 0.000 Nucleated RBC % (auto) 0.0 PT 15.2 H INR 1.3 H Anion Gap 24 H Estim Creat Clear Calc 162.4 Estimated GFR > 60 Random Glucose 102 Lactic Acid Calcium 8.7 D Magnesium 1.5 L Total Bilirubin 3.5 H Direct Bilirubin 2.4 H AST 199 H ALT 29 Alkaline Phosphatase 310 H Troponin I High Sens Total Protein 7.0 Albumin 3.8 Lipase Beta-Hydroxybutyrate Beta HCG, Quant Urine Color Dark Yellow Urine Appearance Clear Urine pH 6.0 Ur Specific [place] >= 1.030 H Urine Protein 100 (2+) H Urine Glucose (UA) Negative Urine Ketones 80 Urine Blood Negative Urine Nitrite Negative Ur Leukocyte Esterase Negative Urine RBC 0-2 Urine WBC 11-20 H Ur Squamous Epith Cells 0-2 Urine Bacteria 3+ Hyaline Casts 3-5 Urine Opiates Screen POSITIVE H Ur Buprenorphine Scrn Not Detected Ur Oxycodone Screen Not Detected Urine Methadone Screen Not Detected Urine Fentanyl Screen Not Detected Acetaminophen Ur Barbiturates Screen Not Detected Ur Phencyclidine Scrn Not Detected Ur Amphetamines Screen Not Detected U Benzodiazepines Scrn Not Detected Urine Cocaine Screen Not Detected U Marijuana (THC) Screen POSITIVE H Ethyl Alcohol Hepatitis A IgM Ab Hep Bs Antigen Hep Bs Antibody Hep B Core Total Ab Hepatitis C Ab (EIA) Assessment and Plan (1) Acute alcoholic pancreatitis: Status: Acute Plan 40F PMH bipolar, alcohol dependence, hypertension presented with abdominal pain Acute alcoholic hepatitis Encourage p.o. intake, monitor LFTs - slight increase today Acute alcoholic pancreatitis IV fluids, pain meds, advance diet as tolerated Alcohol dependence now with acute withdrawal starting phenobarb, addiction Vitamin supplement Bipolar Mood stabilizers DVT prophylaxis with Lovenox Full code reason for continued hospitalization:active withdrawal, not tolerating po Quality Stroke Does the patient have a stroke diagnosis?: No VTE Prior VTE?: No VTE Risk Level:: Medical - moderate - high VTE Device Contraindication: Treatment Not Indicated VTE Drug Contraindication: N/A - Med Ordered
[2025-07-27] MEDS: PHENobarbitaL sodium 130 MG/ML VIAL IM Q3Hx2 171 MG IM ×2 (12:47→16:24)
--- NOTE | 2025-07-27 14:18 | HO.ADDICTCON ---
History of Present Illness Date of Service: 07/27/2025 Chief Complaint: panc Reason for Consult: AUD Sources of Information: patient interviewed and chart reviewed HPI Narrative: Patient is a 40 year old female medically admitted with acute pancreatitis likely related to excessive alcohol use. Patient seen in room 24 of main ED, awaiting transfer to medical floor. She is awake, laying on her side, groaning. Appearing slightly diaphoretic and restless. Reporting severe epigastirc pain. Inability to eat. Feels she is starting alcohol withdrawal. At admission she reported drinking at least 1/5 of hard alcohol daily. Unable to obtain additional history related to AUD, due to level of discomfort when patient was seen CIWA score 14 this morning Labs reviewed Medical Evaluation Reviewed: Yes Review of Systems Constitutional: Reports as per HPI and Reports malaise Gastrointestinal: Reports abdominal pain Diagnostics Vital Signs (24Hr): Vital Signs - 24 hr 07/26/25 17:56 07/26/25 21:28 07/27/25 01:42 Temperature 97.5 F 97.9 F 97.9 F Pulse Rate 113 H 89 99 Respiratory Rate 26 H 20 20 Blood Pressure 151/91 H 117/76 125/77 Pulse Oximetry 98 98 99 Oxygen Delivery Method Room Air Room Air Room Air 07/27/25 08:34 07/27/25 12:27 Temperature 97.9 F Pulse Rate 91 96 Respiratory Rate 18 16 Blood Pressure 136/90 H 112/79 Pulse Oximetry 99 100 Oxygen Delivery Method Room Air Room Air BMI result Body Mass Index 28.6 Labs 07/27/25 04:35 07/27/25 04:34 Labs: Laboratory Results - last 48 hr 07/26/25 07/26/25 07/26/25 11:20 11:21 13:23 WBC 8.4 RBC 3.40 L Hgb 12.2 Hct 35.7 L MCV 105.0 H MCH 35.9 H MCHC 34.2 RDW 16.6 H Plt Count 149 L D MPV 9.1 L Immature Gran % (Auto) 0.6 H Neut % (Auto) 82.6 H Lymph % (Auto) 11.2 L [place] % (Auto) 5.1 Eos % (Auto) 0.1 Baso % (Auto) 0.4 Lymph # (Auto) 0.9 L [place] # (Auto) 0.4 Eos # (Auto) 0.0 Baso # (Auto) 0.0 Abs Immat Gran (auto) 0.05 H Absolute Neuts (auto) 7.0 Absolute Nucleated RBC 0.020 H Nucleated RBC % (auto) 0.2 PT 15.3 H INR 1.3 H Sodium 135 Potassium 3.4 Chloride 94 L Carbon Dioxide 13 L Anion Gap 31 H BUN 9 Creatinine 0.52 Estim Creat Clear Calc 149.9 Estimated GFR > 60 Random Glucose 76 Lactic Acid 3.6 H* Calcium 9.3 D Magnesium 1.8 Total Bilirubin 3.1 H Direct Bilirubin AST 306 H ALT 41 H Alkaline Phosphatase 426 H Troponin I High Sens < 2.7 Total Protein 8.3 H Albumin 4.6 Lipase 541 H Beta-Hydroxybutyrate 8.43 H Beta HCG, Quant < 2 Urine Color Urine Appearance Urine pH Ur Specific [place] Urine Protein Urine Glucose (UA) Urine Ketones Urine Blood Urine Nitrite Ur Leukocyte Esterase Urine RBC Urine WBC Ur Squamous Epith Cells Urine Bacteria Hyaline Casts Urine Opiates Screen Ur Buprenorphine Scrn Ur Oxycodone Screen Urine Methadone Screen Urine Fentanyl Screen Acetaminophen < 3 Ur Barbiturates Screen Ur Phencyclidine Scrn Ur Amphetamines Screen U Benzodiazepines Scrn Urine Cocaine Screen U Marijuana (THC) Screen Ethyl Alcohol 251 Hepatitis A IgM Ab Nonreactive Hep Bs Antigen Negative Hep Bs Antibody REACTIVE Hep B Core Total Ab Nonreactive Hepatitis C Ab (EIA) Nonreactive 07/26/25 07/27/25 07/27/25 18:02 04:34 04:35 WBC 6.0 RBC 2.82 L Hgb 10.2 L Hct 29.7 L MCV 105.3 H MCH 36.2 H MCHC 34.3 RDW 16.4 H Plt Count 119 L MPV 9.9 Immature Gran % (Auto) Neut % (Auto) Lymph % (Auto) [place] % (Auto) Eos % (Auto) Baso % (Auto) Lymph # (Auto) [place] # (Auto) Eos # (Auto) Baso # (Auto) Abs Immat Gran (auto) Absolute Neuts (auto) Absolute Nucleated RBC 0.000 Nucleated RBC % (auto) 0.0 PT 15.2 H INR 1.3 H Sodium 136 Potassium 3.5 Chloride 97 Carbon Dioxide 19 L Anion Gap 24 H BUN 5 L Creatinine 0.48 L Estim Creat Clear Calc 162.4 Estimated GFR > 60 Random Glucose 102 Lactic Acid Calcium 8.7 D Magnesium 1.5 L Total Bilirubin 3.5 H Direct Bilirubin 2.4 H AST 199 H ALT 29 Alkaline Phosphatase 310 H Troponin I High Sens Total Protein 7.0 Albumin 3.8 Lipase Beta-Hydroxybutyrate Beta HCG, Quant Urine Color Dark Yellow Urine Appearance Clear Urine pH 6.0 Ur Specific [place] >= 1.030 H Urine Protein 100 (2+) H Urine Glucose (UA) Negative Urine Ketones 80 Urine Blood Negative Urine Nitrite Negative Ur Leukocyte Esterase Negative Urine RBC 0-2 Urine WBC 11-20 H Ur Squamous Epith Cells 0-2 Urine Bacteria 3+ Hyaline Casts 3-5 Urine Opiates Screen POSITIVE H Ur Buprenorphine Scrn Not Detected Ur Oxycodone Screen Not Detected Urine Methadone Screen Not Detected Urine Fentanyl Screen Not Detected Acetaminophen Ur Barbiturates Screen Not Detected Ur Phencyclidine Scrn Not Detected Ur Amphetamines Screen Not Detected U Benzodiazepines Scrn Not Detected Urine Cocaine Screen Not Detected U Marijuana (THC) Screen POSITIVE H Ethyl Alcohol Hepatitis A IgM Ab Hep Bs Antigen Hep Bs Antibody Hep B Core Total Ab Hepatitis C Ab (EIA) Imaging Radiology Impressions: ITS Impressions Chest X-Ray 07/26/25 11:10 IMPRESSION: Clear lungs. Electronically signed by: Reuben Nicolas MD 07/26/2025 11:43 AM EDT RP KUB X-Ray 07/26/25 11:10 IMPRESSION: Paucity of bowel gas. If there is clinical concern for bowel obstruction, CT is recommended. Electronically signed by: Reuben Nicolas MD 07/26/2025 11:42 AM EDT RP Abdomen/Pelvis CT 07/26/25 12:44 IMPRESSION: Prominent pancreatic head and small amount of fluid and fat stranding surrounding the head of the pancreas, proximal duodenum, right anterior pararenal fascia and root of the small bowel mesentery. This most likely represents changes from mild interstitial pancreatitis. Differential would include duodenitis. Enlarged fatty liver. Electronically signed by: Kim Estevez MD 07/26/2025 01:36 PM EDT RP Chest CTA 07/26/25 12:44 IMPRESSION: 1. No evidence of pulmonary emboli. Unremarkable CTA of the chest. 2. Hepatomegaly and hepatic steatosis. Electronically signed by: Reuben Nicolas MD 07/26/2025 01:31 PM EDT RP Mental Status Exam Mental Status Exam Level of Consciousness: Awake and Appropriate Patient Behavior: Restless and Anxious Speech Pattern: Clear Thought Content: positive for Intact Judgement: Good Medications Medications Current Medications Acetaminophen (Acetaminophen 325 Mg Tablet) 650 mg PO Q6H PRN PRN Reason: Pain, Mild 1-3,fever,headache Last Admin: 07/27/25 08:35 Dose: 650 mg Calcium Carbonate (Calcium Carbonate 750 Mg Tab.Chew) 750 mg PO Q4H PRN PRN Reason: Heartburn Enoxaparin Sodium (Enoxaparin Sodium 40 Mg/0.4 Ml Syringe) 40 mg SUBCUT Q24H [facility] Last Admin: 07/27/25 08:40 Dose: Not Given Folic Acid (Folic Acid 1 Mg Tablet) 1 mg PO DAILY [facility] Last Admin: 07/27/25 08:36 Dose: 1 mg Hydromorphone HCl (Hydromorphone Hcl 0.5 Mg/0.5 Ml Syringe) 0.5 mg IVPUSH Q3H PRN; Protocol PRN Reason: Breakthrough Pain Last Admin: 07/27/25 12:45 Dose: 0.5 mg Lactated Ringer's (Lr) 1,000 mls @ 100 mls/hr IVCONT .Q10H [facility] Last Admin: 07/27/25 11:39 Dose: 100 mls/hr Thiamine HCl 100 mg/ Sodium (Chloride) 101 mls @ 202 mls/hr IV DAILY [facility] Last Infusion: 07/27/25 09:10 Dose: Infused Magnesium Hydroxide (Milk Of Magnesia 30 Ml Oral.Susp) 30 ml PO DAILY PRN PRN Reason: Constipation Magnesium Oxide (Magnesium Oxide 400 Mg Tablet) 800 mg PO BIDPC [facility] Last Admin: 07/27/25 08:36 Dose: 800 mg Melatonin (Melatonin 3 Mg Tablet) 6 mg PO BEDTIME PRN PRN Reason: Insomnia Last Admin: 07/27/25 00:59 Dose: 6 mg Multivitamins/Vitamin C (Multivitamin Tablet) 1 tab PO DAILY [facility] Last Admin: 07/27/25 08:40 Dose: Not Given Pharmacy Consult (Consult Rx Etoh Phenob Im/Po) 1 each MISCELLANE ONCE PRN; Protocol PRN Reason: Consult order Phenobarbital (Phenobarbital 15 Mg Tablet) 45 mg PO BID [facility]; Protocol Stop: 07/29/25 09:01 Phenobarbital (Phenobarbital 15 Mg Tablet) 15 mg PO BID [facility]; Protocol Stop: 07/31/25 09:01 Phenobarbital (Phenobarbital 15 Mg Tablet) 15 mg PO DAILY [facility]; Protocol Stop: 08/02/25 09:01 Phenobarbital Sodium (Phenobarbital Sodium 130 Mg/Ml Vial Im Q3hx2) 171 mg IM Q3H [facility]; Protocol Stop: 07/27/25 16:01 Last Admin: 07/27/25 12:47 Dose: 171 mg Sodium Chloride (0.9 % Sodium Chloride Flush 3 Ml Syringe) 3 ml IVFLUSH QSHIFT [facility] Last Admin: 07/27/25 07:15 Dose: Not Given Allergies Allergies Allergy/AdvReac Type Severity Reaction Status Date / Time citalopram (From CELEXA) Allergy Unknown JITTERY Verified 07/26/25 11:08 Assessment & Plan Assessment & Plan (1) Alcohol use disorder, severe, dependence: Status: Acute Code(s): F10.20 - Alcohol dependence, uncomplicated Assessment and Plan: acute withdrawal sx developing --phenobarbital protocol initiated, thiamine/folic acid continue CIWA -gabapentin 100mg PRN for anxiety follow up this afternoon patient resting comfortably, with VSS--will follow up in AM to obtain additional SHAILESH history Total time managing care of this patient today __25__ minutes. PMFSH Past Medical History Medical History Other postprocedural complications of skin and subcutaneous tissue Bipolar disorder Surgical History Surgical History Status post panniculectomy History of abdominoplasty Social History Social History Household Members: Children Housing: House Alcohol intake: current Alcohol intake frequency: 3 or more drinks per day Alcohol type: hard liquor Patient Tobacco Use Status: Current everyday Tobacco user Tobacco use type: Cigarette Smoked in Last 30 Days: Yes Use of substances other than those prescribed or required for medical reasons: Yes Substance Use Type: Marijuana Advance Directives: No Advance Directives Information Provided: No Nutrition Risks: No Nutritional Risk service: No Current occupational status: unemployed Gender identity: Female
[2025-07-27] MEDS: 0.9 % Sodium Chloride Flush 3 ML SYRINGE IVFLUSH (15:41)
--- NOTE | 2025-07-27 15:55 | HO.NURTONUR ---
Pt arrived c/o abd pain, ED workup pos for acute hepatitis (hx ETOH abuse) and pancreatitis. Admit for IVF (LR@100mL/hr), scheduled phenobarb, and pain control (increased PRN to q3h 0.5mg dilaudid). Seen by addiction med. Pt currently tolerating clear liquids, aaox4, ambulatory/independent.
--- NOTE | 2025-07-27 16:09 | MHC.RECOVRN ---
Late entry: 07/27/25 @ 13:57 TW attempted to check in on pt in ED-24. On approach, pt was resting soundly, in no acute distress, respirations even and unlabored, vs stable. No restlessness noted. Pt was alllowed to rest and ACS team to meet with pt tomrrow to offer support and resources.
[2025-07-28 03:33] VITALS: BP 130/80; PULSE 96; RESP 16; TEMP 36.8; O2SAT 97
[2025-07-28 07:14] LABS: INTERNATIONAL NORM RATIO 1.6 (0.9-1.1); Prothrombin Time 18.3 SEC (10.9-12.4)
[2025-07-28 07:19] LABS: Hematocrit 29.0 % (37.0-47.0); Hemoglobin 10.1 g/dl (12.0-16.0); Mean Corpuscular HGB Conc 34.8 g/dl (31.0-35.0); Mean Corpuscular Hemoglobin 36.5 pg (27.0-33.0); Mean Corpuscular Volume 104.7 fL (80.0-98.0); NRBC Abs Auto 0.020 X10*3/uL (0.0-0.012); NRBC Pct Auto 0.4 /100WBC (0.0-0.2); Platelet Count 122 X10*3/uL (160-400); Red Blood Count 2.77 X10*6/uL (4.20-5.50); White Blood Count 5.6 X10*3/uL (4.8-10.8)
[2025-07-28 07:52] LABS: Alanine Aminotransferase 24 U/L (0-31); Albumin Level 3.5 g/dL (3.5-5.0); Alkaline Phosphatase 303 U/L (39-117); Anion Gap 17 (12-20); Aspartate Amino Transferase 210 U/L (5-31); Blood Urea Nitrogen 3 mg/dL (9-16); Calcium 9.0 mg/dL (8.4-10.2); Carbon Dioxide 27 mmol/L (22-29); Chloride 94 mmol/L (96-108); Creatinine Clr Calc Pharmacy 206.0; Estimated Glomerular Filt Rate > 60; Magnesium 1.5 mg/dL (1.6-2.6); Potassium 2.9 mmol/L (3.3-5.1); Sodium 135 mmol/L (135-145); Total Protein 6.6 g/dL (6.5-8.0)
[2025-07-28 08:00] VITALS: BP 141/91; PULSE 117; RESP 20; TEMP 37.1; O2SAT 99
[2025-07-28] MEDS: Thiamine HCL 100 MG in 0.9 % Sodium Chloride 100 ML 202 MG IV (08:05)
[2025-07-28] MEDS: Potassium Chloride ER 20 MEQ TAB.ER.PRT 40 MEQ PO (08:38)
[2025-07-28] MEDS: 0.9 % Sodium Chloride Flush 3 ML SYRINGE IVFLUSH ×2 (08:40→13:57)
[2025-07-28] MEDS: Lactated Ringers 1,000 ML 100 ML IVCONT ×2 (09:07→20:05)
--- NOTE | 2025-07-28 11:17 | HO.PM.IMPN ---
Subjective Subjective Date of Service: 07/28/25 Interval History: Feeling weak, unable to tolerate p.o. Physical Exam Exam: Exam: General: AO X 3, in pain, jaundice Resp: CTA bilateral, no accessory muscles used CVS: S1,S2,RRR GI: soft, tender, non distended Neuro: motor grossly intact, alert Psych: appropriate affect, appropriate insight Vital Signs: Vital Signs: Last Vital Signs Temp 98.8 F 07/28/25 08:00 Pulse 117 H 07/28/25 08:00 Resp 20 07/28/25 08:00 BP 141/91 H 07/28/25 08:00 Pulse Ox 99 07/28/25 08:00 O2 Del Method Room Air 07/28/25 08:00 BMI result Body Mass Index 30.4 Objective Data Active Medications Acetaminophen (Acetaminophen 325 Mg Tablet) 650 mg PO Q6H PRN PRN Reason: Pain, Mild 1-3,fever,headache Last Admin: 07/27/25 08:35 Dose: 650 mg Documented By: DUY Calcium Carbonate (Calcium Carbonate 750 Mg Tab.Chew) 750 mg PO Q4H PRN PRN Reason: Heartburn Enoxaparin Sodium (Enoxaparin Sodium 40 Mg/0.4 Ml Syringe) 40 mg SUBCUT Q24H [facility] Last Admin: 07/28/25 09:55 Dose: Not Given Documented By: GOPAL Non-Admin Reason: Patient Refused Folic Acid (Folic Acid 1 Mg Tablet) 1 mg PO DAILY [facility] Last Admin: 07/28/25 08:04 Dose: 1 mg Documented By: GOPAL Hydromorphone HCl (Hydromorphone Hcl 0.5 Mg/0.5 Ml Syringe) 0.5 mg IVPUSH Q3H PRN; Protocol PRN Reason: Breakthrough Pain Last Admin: 07/28/25 08:38 Dose: 0.5 mg Documented By: GOPAL Lactated Ringer's (Lr) 1,000 mls @ 100 mls/hr IVCONT .Q10H [facility] Last Admin: 07/28/25 09:07 Dose: 100 mls/hr Documented By: GOPAL Thiamine HCl 100 mg/ Sodium (Chloride) 101 mls @ 202 mls/hr IV DAILY [facility] Last Infusion: 07/28/25 09:06 Dose: Infused Documented By: GOPAL Magnesium Hydroxide (Milk Of Magnesia 30 Ml Oral.Susp) 30 ml PO DAILY PRN PRN Reason: Constipation Magnesium Oxide (Magnesium Oxide 400 Mg Tablet) 800 mg PO BIDPC [facility] Last Admin: 07/28/25 08:03 Dose: 800 mg Documented By: GOPAL Melatonin (Melatonin 3 Mg Tablet) 6 mg PO BEDTIME PRN PRN Reason: Insomnia Last Admin: 07/27/25 00:59 Dose: 6 mg Documented By: STEVE Multivitamins/Vitamin C (Multivitamin Tablet) 1 tab PO DAILY [facility] Last Admin: 07/28/25 08:05 Dose: 1 tab Documented By: GOPAL Pharmacy Consult (Consult Rx Etoh Phenob Im/Po) 1 each MISCELLANE ONCE PRN; Protocol PRN Reason: Consult order Phenobarbital (Phenobarbital 15 Mg Tablet) 45 mg PO BID [facility]; Protocol Stop: 07/29/25 09:01 Last Admin: 07/28/25 08:04 Dose: 45 mg Documented By: GOPAL Phenobarbital (Phenobarbital 15 Mg Tablet) 15 mg PO BID [facility]; Protocol Stop: 07/31/25 09:01 Phenobarbital (Phenobarbital 15 Mg Tablet) 15 mg PO DAILY [facility]; Protocol Stop: 08/02/25 09:01 Sodium Chloride (0.9 % Sodium Chloride Flush 3 Ml Sy[facility]) [facility] Last Admin: 07/28/25 08:40 Dose: 3 ml Documented By: GOPAL Labs 07/28/25 06:57 07/28/25 06:57 Labs: Laboratory Results - last 24 hr 07/28/25 06:57 MCV 104.7 H MCH 36.5 H MCHC 34.8 RDW 15.5 Plt Count 122 L MPV 9.9 Absolute Nucleated RBC 0.020 H Nucleated RBC % (auto) 0.4 H PT 18.3 H D INR 1.6 H Anion Gap 17 Estim Creat Clear Calc 206.0 Estimated GFR > 60 Random Glucose 115 Calcium 9.0 Magnesium 1.5 L Total Bilirubin 3.9 H Direct Bilirubin 3.0 H AST 210 H ALT 24 Alkaline Phosphatase 303 H Total Protein 6.6 Albumin 3.5 Microbiology Microbiology Results: Microbiology 07/26/25 18:36 Urine Culture - Final Urine clean catch - Clean Catch Midstream Assessment and Plan (1) Acute alcoholic pancreatitis: Status: Acute Plan 40F PMH bipolar, alcohol dependence, hypertension presented with abdominal pain Acute alcoholic hepatitis Encourage p.o. intake, monitor LFTs Acute alcoholic pancreatitis Continue IV fluids, pain meds, advance diet as tolerated - has not tolerated p.o. Alcohol dependence with acute withdrawal phenobarb, CIWA Vitamin supplement Acute hypokalemia and hypomagnesemia symptomatic Replace and monitor Bipolar Mood stabilizers DVT prophylaxis with Lovenox Full code reason for continued hospitalization: Symptomatic electrolyte abnormalities, not tolerating po Quality Stroke Does the patient have a stroke diagnosis?: No VTE Prior VTE?: No VTE Risk Level:: Medical - moderate - high VTE Device Contraindication: Treatment Not Indicated VTE Drug Contraindication: N/A - Med Ordered
--- NOTE | 2025-07-28 11:18 | HO.ADDICTPRO ---
Subjective Subjective Date of Service: 07/28/25 Reason For Visit: panc Interim History: Patient seen in follow up for AUD Reports pain is a challenge. Denies any withdrawal sx. --states she sweat all of the time, it's not withdrawal Declined to discuss alcohol use any further and declined to have t/w return at a later time to discuss, thank you, but I'm all set. I have plenty of resources and know where to find them Overall appearance improved from yesterday. Not restless. Denies n/v. no tremor noted Most recent CIWA scores have been 0,1 Labs reviewed-mg, k low Review of Systems Constitutional: Reports as per HPI Mental Status Exam Mental Status Exam Level of Consciousness: Awake, Appropriate and Alert Patient Behavior: Appropriate Affect Description: Calm Speech Pattern: Clear Thought Process: Intact Thought Content: positive for Intact Judgement: Good Diagnostics Vital Signs (24Hr): Vital Signs - 24 hr 07/27/25 12:27 07/27/25 14:25 07/27/25 17:13 Temperature 97.9 F 97.9 F 98.1 F Pulse Rate 96 98 99 Respiratory Rate 16 18 18 Blood Pressure 112/79 110/66 129/82 Pulse Oximetry 100 97 97 Oxygen Delivery Method Room Air Room Air Room Air 07/27/25 19:54 07/27/25 23:47 07/28/25 03:33 Temperature 98.6 F 98.2 F 98.2 F Pulse Rate 99 97 96 Respiratory Rate 16 16 16 Blood Pressure 137/84 137/82 130/80 Pulse Oximetry 95 95 97 Oxygen Delivery Method Room Air Room Air Room Air 07/28/25 08:00 Temperature 98.8 F Pulse Rate 117 H Respiratory Rate 20 Blood Pressure 141/91 H Pulse Oximetry 99 Oxygen Delivery Method Room Air BMI result Body Mass Index 30.4 Labs 07/28/25 06:57 07/28/25 06:57 Labs: Laboratory Results - last 48 hr 07/26/25 07/26/25 07/26/25 11:20 11:21 13:23 WBC 8.4 RBC 3.40 L Hgb 12.2 Hct 35.7 L MCV 105.0 H MCH 35.9 H MCHC 34.2 RDW 16.6 H Plt Count 149 L D MPV 9.1 L Immature Gran % (Auto) 0.6 H Neut % (Auto) 82.6 H Lymph % (Auto) 11.2 L [place] % (Auto) 5.1 Eos % (Auto) 0.1 Baso % (Auto) 0.4 Lymph # (Auto) 0.9 L [place] # (Auto) 0.4 Eos # (Auto) 0.0 Baso # (Auto) 0.0 Abs Immat Gran (auto) 0.05 H Absolute Neuts (auto) 7.0 Absolute Nucleated RBC 0.020 H Nucleated RBC % (auto) 0.2 PT 15.3 H INR 1.3 H Sodium 135 Potassium 3.4 Chloride 94 L Carbon Dioxide 13 L Anion Gap 31 H BUN 9 Creatinine 0.52 Estim Creat Clear Calc 149.9 Estimated GFR > 60 Random Glucose 76 Lactic Acid 3.6 H* Calcium 9.3 D Magnesium 1.8 Total Bilirubin 3.1 H Direct Bilirubin AST 306 H ALT 41 H Alkaline Phosphatase 426 H Troponin I High Sens < 2.7 Total Protein 8.3 H Albumin 4.6 Lipase 541 H Beta-Hydroxybutyrate 8.43 H Beta HCG, Quant < 2 Urine Color Urine Appearance Urine pH Ur Specific [place] Urine Protein Urine Glucose (UA) Urine Ketones Urine Blood Urine Nitrite Ur Leukocyte Esterase Urine RBC Urine WBC Ur Squamous Epith Cells Urine Bacteria Hyaline Casts Urine Opiates Screen Ur Buprenorphine Scrn Ur Oxycodone Screen Urine Methadone Screen Urine Fentanyl Screen Acetaminophen < 3 Ur Barbiturates Screen Ur Phencyclidine Scrn Ur Amphetamines Screen U Benzodiazepines Scrn Urine Cocaine Screen U Marijuana (THC) Screen Ethyl Alcohol 251 Hepatitis A IgM Ab Nonreactive Hep Bs Antigen Negative Hep Bs Antibody REACTIVE Hep B Core Total Ab Nonreactive Hepatitis C Ab (EIA) Nonreactive 07/26/25 07/27/25 07/27/25 18:02 04:34 04:35 WBC 6.0 RBC 2.82 L Hgb 10.2 L Hct 29.7 L MCV 105.3 H MCH 36.2 H MCHC 34.3 RDW 16.4 H Plt Count 119 L MPV 9.9 Immature Gran % (Auto) Neut % (Auto) Lymph % (Auto) [place] % (Auto) Eos % (Auto) Baso % (Auto) Lymph # (Auto) [place] # (Auto) Eos # (Auto) Baso # (Auto) Abs Immat Gran (auto) Absolute Neuts (auto) Absolute Nucleated RBC 0.000 Nucleated RBC % (auto) 0.0 PT 15.2 H INR 1.3 H Sodium 136 Potassium 3.5 Chloride 97 Carbon Dioxide 19 L Anion Gap 24 H BUN 5 L Creatinine 0.48 L Estim Creat Clear Calc 162.4 Estimated GFR > 60 Random Glucose 102 Lactic Acid Calcium 8.7 D Magnesium 1.5 L Total Bilirubin 3.5 H Direct Bilirubin 2.4 H AST 199 H ALT 29 Alkaline Phosphatase 310 H Troponin I High Sens Total Protein 7.0 Albumin 3.8 Lipase Beta-Hydroxybutyrate Beta HCG, Quant Urine Color Dark Yellow Urine Appearance Clear Urine pH 6.0 Ur Specific [place] >= 1.030 H Urine Protein 100 (2+) H Urine Glucose (UA) Negative Urine Ketones 80 Urine Blood Negative Urine Nitrite Negative Ur Leukocyte Esterase Negative Urine RBC 0-2 Urine WBC 11-20 H Ur Squamous Epith Cells 0-2 Urine Bacteria 3+ Hyaline Casts 3-5 Urine Opiates Screen POSITIVE H Ur Buprenorphine Scrn Not Detected Ur Oxycodone Screen Not Detected Urine Methadone Screen Not Detected Urine Fentanyl Screen Not Detected Acetaminophen Ur Barbiturates Screen Not Detected Ur Phencyclidine Scrn Not Detected Ur Amphetamines Screen Not Detected U Benzodiazepines Scrn Not Detected Urine Cocaine Screen Not Detected U Marijuana (THC) Screen POSITIVE H Ethyl Alcohol Hepatitis A IgM Ab Hep Bs Antigen Hep Bs Antibody Hep B Core Total Ab Hepatitis C Ab (EIA) 07/28/25 06:57 WBC 5.6 RBC 2.77 L Hgb 10.1 L Hct 29.0 L MCV 104.7 H MCH 36.5 H MCHC 34.8 RDW 15.5 Plt Count 122 L MPV 9.9 Immature Gran % (Auto) Neut % (Auto) Lymph % (Auto) [place] % (Auto) Eos % (Auto) Baso % (Auto) Lymph # (Auto) [place] # (Auto) Eos # (Auto) Baso # (Auto) Abs Immat Gran (auto) Absolute Neuts (auto) Absolute Nucleated RBC 0.020 H Nucleated RBC % (auto) 0.4 H PT 18.3 H D INR 1.6 H Sodium 135 Potassium 2.9 L* Chloride 94 L Carbon Dioxide 27 Anion Gap 17 BUN 3 L Creatinine 0.39 L Estim Creat Clear Calc 206.0 Estimated GFR > 60 Random Glucose 115 Lactic Acid Calcium 9.0 Magnesium 1.5 L Total Bilirubin 3.9 H Direct Bilirubin 3.0 H AST 210 H ALT 24 Alkaline Phosphatase 303 H Troponin I High Sens Total Protein 6.6 Albumin 3.5 Lipase Beta-Hydroxybutyrate Beta HCG, Quant Urine Color Urine Appearance Urine pH Ur Specific [place] Urine Protein Urine Glucose (UA) Urine Ketones Urine Blood Urine Nitrite Ur Leukocyte Esterase Urine RBC Urine WBC Ur Squamous Epith Cells Urine Bacteria Hyaline Casts Urine Opiates Screen Ur Buprenorphine Scrn Ur Oxycodone Screen Urine Methadone Screen Urine Fentanyl Screen Acetaminophen Ur Barbiturates Screen Ur Phencyclidine Scrn Ur Amphetamines Screen U Benzodiazepines Scrn Urine Cocaine Screen U Marijuana (THC) Screen Ethyl Alcohol Hepatitis A IgM Ab Hep Bs Antigen Hep Bs Antibody Hep B Core Total Ab Hepatitis C Ab (EIA) Imaging Radiology Impressions: ITS Impressions Chest X-Ray 07/26/25 11:10 IMPRESSION: Clear lungs. Electronically signed by: Reuben Nicolas MD 07/26/2025 11:43 AM EDT RP KUB X-Ray 07/26/25 11:10 IMPRESSION: Paucity of bowel gas. If there is clinical concern for bowel obstruction, CT is recommended. Electronically signed by: Reuben Nicolas MD 07/26/2025 11:42 AM EDT RP Abdomen/Pelvis CT 07/26/25 12:44 IMPRESSION: Prominent pancreatic head and small amount of fluid and fat stranding surrounding the head of the pancreas, proximal duodenum, right anterior pararenal fascia and root of the small bowel mesentery. This most likely represents changes from mild interstitial pancreatitis. Differential would include duodenitis. Enlarged fatty liver. Electronically signed by: Kim Estevez MD 07/26/2025 01:36 PM EDT RP Chest CTA 07/26/25 12:44 IMPRESSION: 1. No evidence of pulmonary emboli. Unremarkable CTA of the chest. 2. Hepatomegaly and hepatic steatosis. Electronically signed by: Reuben Nicolas MD 07/26/2025 01:31 PM EDT RP Medications Medications Current Medications Acetaminophen (Acetaminophen 325 Mg Tablet) 650 mg PO Q6H PRN PRN Reason: Pain, Mild 1-3,fever,headache Last Admin: 07/27/25 08:35 Dose: 650 mg Calcium Carbonate (Calcium Carbonate 750 Mg Tab.Chew) 750 mg PO Q4H PRN PRN Reason: Heartburn Enoxaparin Sodium (Enoxaparin Sodium 40 Mg/0.4 Ml Syringe) 40 mg SUBCUT Q24H [facility] Last Admin: 07/28/25 09:55 Dose: Not Given Folic Acid (Folic Acid 1 Mg Tablet) 1 mg PO DAILY [facility] Last Admin: 07/28/25 08:04 Dose: 1 mg Hydromorphone HCl (Hydromorphone Hcl 0.5 Mg/0.5 Ml Syringe) 0.5 mg IVPUSH Q3H PRN; Protocol PRN Reason: Breakthrough Pain Last Admin: 07/28/25 08:38 Dose: 0.5 mg Lactated Ringer's (Lr) 1,000 mls @ 100 mls/hr IVCONT .Q10H [facility] Last Admin: 07/28/25 09:07 Dose: 100 mls/hr Thiamine HCl 100 mg/ Sodium (Chloride) 101 mls @ 202 mls/hr IV DAILY [facility] Last Infusion: 07/28/25 09:06 Dose: Infused Magnesium Hydroxide (Milk Of Magnesia 30 Ml Oral.Susp) 30 ml PO DAILY PRN PRN Reason: Constipation Magnesium Oxide (Magnesium Oxide 400 Mg Tablet) 800 mg PO BIDPC [facility] Last Admin: 07/28/25 08:03 Dose: 800 mg Melatonin (Melatonin 3 Mg Tablet) 6 mg PO BEDTIME PRN PRN Reason: Insomnia Last Admin: 07/27/25 00:59 Dose: 6 mg Multivitamins/Vitamin C (Multivitamin Tablet) 1 tab PO DAILY [facility] Last Admin: 07/28/25 08:05 Dose: 1 tab Pharmacy Consult (Consult Rx Etoh Phenob Im/Po) 1 each MISCELLANE ONCE PRN; Protocol PRN Reason: Consult order Phenobarbital (Phenobarbital 15 Mg Tablet) 45 mg PO BID [facility]; Protocol Stop: 07/29/25 09:01 Last Admin: 07/28/25 08:04 Dose: 45 mg Phenobarbital (Phenobarbital 15 Mg Tablet) 15 mg PO BID [facility]; Protocol Stop: 07/31/25 09:01 Phenobarbital (Phenobarbital 15 Mg Tablet) 15 mg PO DAILY [facility]; Protocol Stop: 08/02/25 09:01 Sodium Chloride (0.9 % Sodium Chloride Flush 3 Ml Syringe) 3 ml IVFLUSH QSHIFT [facility] Last Admin: 07/28/25 08:40 Dose: 3 ml Allergies Allergies Allergy/AdvReac Type Severity Reaction Status Date / Time citalopram (From CELEXA) Allergy Unknown CHARISMATTERY Verified 07/26/25 11:08 Assessment & Plan Assessment & Plan (1) Alcohol use disorder, severe, dependence: Status: Acute Code(s): F10.20 - Alcohol dependence, uncomplicated Assessment and Plan: acute withdrawal sx much improved with phenobarbital - encouraged to continue thiamine and folic acid outpt declined follow up, host and hostess will leave resource folder with RN for patient to review at her leisure or at discharge no additional follow up indicated at this time, unless requested by patient Total time managing care of this patient today _25___ minutes.
[2025-07-28 12:00] VITALS: BP 134/87; PULSE 116; RESP 24; TEMP 37.1; O2SAT 97
[2025-07-28 15:25] VITALS: BP 121/72; PULSE 95; RESP 18; TEMP 36.6; O2SAT 97
--- NOTE | 2025-07-28 16:02 | MHC.CM.PN ---
EMR REVIEWED AND PER MD ROUNDS, PATIENT IS NOT MEDICALLY CLEARED FOR DISCHARGE DUE TO MANAGEMENT OF ETOH W/D, ETOH HEPATITIS/PANCREATITIS.
[2025-07-28 19:14] VITALS: BP 126/81; PULSE 98; RESP 16; TEMP 37.1; O2SAT 97
[2025-07-28 23:30] VITALS: BP 114/81; PULSE 100; RESP 16; TEMP 37.1; O2SAT 98
[2025-07-29 03:11] VITALS: BP 122/77; PULSE 96; RESP 16; TEMP 37.3; O2SAT 99
[2025-07-29] MEDS: Lactated Ringers 1,000 ML 100 ML IVCONT (05:53)
[2025-07-29 08:00] VITALS: BP 129/78; PULSE 92; RESP 18; TEMP 36.4; O2SAT 99
[2025-07-29 08:19] LABS: Hematocrit 26.3 % (37.0-47.0); Hemoglobin 9.1 g/dl (12.0-16.0); Mean Corpuscular HGB Conc 34.6 g/dl (31.0-35.0); Mean Corpuscular Hemoglobin 36.3 pg (27.0-33.0); Mean Corpuscular Volume 104.8 fL (80.0-98.0); NRBC Abs Auto 0.020 X10*3/uL (0.0-0.012); NRBC Pct Auto 0.3 /100WBC (0.0-0.2); Platelet Count 143 X10*3/uL (160-400); Red Blood Count 2.51 X10*6/uL (4.20-5.50); White Blood Count 6.3 X10*3/uL (4.8-10.8)
[2025-07-29 08:23] LABS: INTERNATIONAL NORM RATIO 1.8 (0.9-1.1); Prothrombin Time 20.1 SEC (10.9-12.4)
[2025-07-29 08:36] LABS: Alanine Aminotransferase 23 U/L (0-31); Albumin Level 3.4 g/dL (3.5-5.0); Alkaline Phosphatase 307 U/L (39-117); Anion Gap 12 (12-20); Aspartate Amino Transferase 196 U/L (5-31); Blood Urea Nitrogen 3 mg/dL (9-16); Calcium 8.7 mg/dL (8.4-10.2); Carbon Dioxide 31 mmol/L (22-29); Chloride 94 mmol/L (96-108); Creatinine Clr Calc Pharmacy 217.2; Estimated Glomerular Filt Rate > 60; Magnesium 1.6 mg/dL (1.6-2.6); Potassium 2.9 mmol/L (3.3-5.1); Sodium 134 mmol/L (135-145); Total Protein 6.4 g/dL (6.5-8.0)
[2025-07-29] MEDS: Potassium Chloride ER 20 MEQ TAB.ER.PRT 40 MEQ PO (08:51)
[2025-07-29] MEDS: Thiamine HCL 100 MG in 0.9 % Sodium Chloride 100 ML 202 MG IV (08:53)
--- NOTE | 2025-07-29 10:35 | HO.PM.IMPN ---
Subjective Subjective Date of Service: 07/29/25 Interval History: Feeling weak, unable to tolerate p.o. Physical Exam Exam: Exam: General: AO X 3, in pain, jaundice Resp: CTA bilateral, no accessory muscles used CVS: S1,S2,RRR GI: soft, tender, non distended Neuro: motor grossly intact, alert Psych: appropriate affect, appropriate insight Vital Signs: Vital Signs: Last Vital Signs Temp 97.6 F 07/29/25 08:00 Pulse 92 07/29/25 08:00 Resp 18 07/29/25 08:00 BP 129/78 07/29/25 08:00 Pulse Ox 99 07/29/25 08:00 O2 Del Method Room Air 07/29/25 08:00 BMI result Body Mass Index 30.4 Objective Data Active Medications Acetaminophen (Acetaminophen 325 Mg Tablet) 650 mg PO Q6H PRN PRN Reason: Pain, Mild 1-3,fever,headache Last Admin: 07/27/25 08:35 Dose: 650 mg Documented By: DUY Calcium Carbonate (Calcium Carbonate 750 Mg Tab.Chew) 750 mg PO Q4H PRN PRN Reason: Heartburn Enoxaparin Sodium (Enoxaparin Sodium 40 Mg/0.4 Ml Syringe) 40 mg SUBCUT Q24H [facility] Last Admin: 07/29/25 09:15 Dose: Not Given Documented By: LAINEY Non-Admin Reason: Patient Refused Folic Acid (Folic Acid 1 Mg Tablet) 1 mg PO DAILY [facility] Last Admin: 07/29/25 08:53 Dose: 1 mg Documented By: LAINEY Hydromorphone HCl (Hydromorphone Hcl 0.5 Mg/0.5 Ml Syringe) 1 mg IVPUSH Q3H PRN; Protocol PRN Reason: Breakthrough Pain Last Admin: 07/29/25 08:52 Dose: 1 mg Documented By: LAINEY Thiamine HCl 100 mg/ Sodium (Chloride) 101 mls @ 202 mls/hr IV DAILY [facility] Last Infusion: 07/29/25 09:28 Dose: Infused Documented By: DONALD Sodium Chloride (Ns) 1,000 mls @ 100 mls/hr IVCONT .Q10H [facility] Last Admin: 07/29/25 08:58 Dose: 100 mls/hr Documented By: LAINEY Magnesium Hydroxide (Milk Of Magnesia 30 Ml Oral.Susp) 30 ml PO DAILY PRN PRN Reason: Constipation Magnesium Oxide (Magnesium Oxide 400 Mg Tablet) 800 mg PO BIDPC [facility] Last Admin: 07/29/25 08:53 Dose: 800 mg Documented By: LAINEY Melatonin (Melatonin 3 Mg Tablet) 6 mg PO BEDTIME PRN PRN Reason: Insomnia Last Admin: 07/28/25 20:10 Dose: 6 mg Documented By: ALEXANDRA Multivitamins/Vitamin C (Multivitamin Tablet) 1 tab PO DAILY [facility] Last Admin: 07/29/25 08:53 Dose: 1 tab Documented By: LAINEY Pharmacy Consult (Consult Rx Etoh Phenob Im/Po) 1 each MISCELLANE ONCE PRN; Protocol PRN Reason: Consult order Phenobarbital (Phenobarbital 15 Mg Tablet) 15 mg PO BID [facility]; Protocol Stop: 07/31/25 09:01 Phenobarbital (Phenobarbital 15 Mg Tablet) 15 mg PO DAILY [facility]; Protocol Stop: 08/02/25 09:01 Sodium Chloride (0.9 % Sodium Chloride Flush 3 Ml Syringe) 3 ml IVFLUSH QSHIFT [facility] Last Admin: 07/29/25 09:12 Dose: Not Given Documented By: LAINEY Non-Admin Reason: IV Running Labs 07/29/25 07:45 07/29/25 07:45 Labs: Laboratory Results - last 24 hr 07/29/25 07:45 MCV 104.8 H MCH 36.3 H MCHC 34.6 RDW 15.7 Plt Count 143 L MPV 10.2 Absolute Nucleated RBC 0.020 H Nucleated RBC % (auto) 0.3 H PT 20.1 H INR 1.8 H Anion Gap 12 Estim Creat Clear Calc 217.2 Estimated GFR > 60 Random Glucose 110 Calcium 8.7 Magnesium 1.6 Total Bilirubin 3.5 H Direct Bilirubin 2.7 H AST 196 H ALT 23 Alkaline Phosphatase 307 H Total Protein 6.4 L Albumin 3.4 L Microbiology Microbiology Results: Microbiology 07/26/25 18:36 Urine Culture - Final Urine clean catch - Clean Catch Midstream Assessment and Plan (1) Acute alcoholic pancreatitis: Status: Acute Plan 40F PMH bipolar, alcohol dependence, hypertension presented with abdominal pain Acute alcoholic hepatitis Encourage p.o. intake, monitor LFTs - slightly worse today Acute alcoholic pancreatitis Continue IV fluids - changing to NS, pain meds, advance diet as tolerated - has not tolerated p.o. Alcohol dependence with acute withdrawal phenobarb, CIWA Vitamin supplement Acute hypokalemia and hypomagnesemia symptomatic Replace and monitor Bipolar Mood stabilizers DVT prophylaxis with Lovenox Full code reason for continued hospitalization: Symptomatic electrolyte abnormalities, not tolerating po Quality Stroke Does the patient have a stroke diagnosis?: No VTE Prior VTE?: No VTE Risk Level:: Medical - moderate - high VTE Device Contraindication: Treatment Not Indicated VTE Drug Contraindication: N/A - Med Ordered
[2025-07-29 12:00] VITALS: BP 116/70; PULSE 96; RESP 18; TEMP 35.9; O2SAT 99
[2025-07-29] MEDS: 0.9 % Sodium Chloride Flush 3 ML SYRINGE IVFLUSH (12:11)
[2025-07-29 15:53] VITALS: BP 120/73; PULSE 94; RESP 18; TEMP 36.5; O2SAT 98
[2025-07-29 19:22] VITALS: BP 132/77; PULSE 105; RESP 16; TEMP 36.9; O2SAT 99
[2025-07-29 23:29] VITALS: BP 130/73; PULSE 98; RESP 16; TEMP 36.4; O2SAT 98
[2025-07-30] VITALS (8 sets, daily range): BP systolic 101–130; BP diastolic 55–80; PULSE 91–104; RESP 16–18; TEMP 36.2–36.6; O2SAT 96–100
[2025-07-30] MEDS: Thiamine HCL 100 MG in 0.9 % Sodium Chloride 100 ML 202 MG IV (07:58)
[2025-07-30 08:12] LABS: Hematocrit 27.6 % (37.0-47.0); Hemoglobin 9.3 g/dl (12.0-16.0); Mean Corpuscular HGB Conc 33.7 g/dl (31.0-35.0); Mean Corpuscular Hemoglobin 36.2 pg (27.0-33.0); Mean Corpuscular Volume 107.4 fL (80.0-98.0); NRBC Abs Auto 0.060 X10*3/uL (0.0-0.012); NRBC Pct Auto 0.8 /100WBC (0.0-0.2); Platelet Count 170 X10*3/uL (160-400); Red Blood Count 2.57 X10*6/uL (4.20-5.50); White Blood Count 7.4 X10*3/uL (4.8-10.8)
[2025-07-30 08:16] LABS: INTERNATIONAL NORM RATIO 1.8 (0.9-1.1); Prothrombin Time 20.9 SEC (10.9-12.4)
[2025-07-30 08:39] LABS: Alanine Aminotransferase 24 U/L (0-31); Albumin Level 3.4 g/dL (3.5-5.0); Alkaline Phosphatase 337 U/L (39-117); Anion Gap 15 (12-20); Aspartate Amino Transferase 195 U/L (5-31); Blood Urea Nitrogen 5 mg/dL (9-16); Calcium 8.4 mg/dL (8.4-10.2); Carbon Dioxide 27 mmol/L (22-29); Chloride 96 mmol/L (96-108); Creatinine Clr Calc Pharmacy 243.5; Estimated Glomerular Filt Rate > 60; Magnesium 1.8 mg/dL (1.6-2.6); Potassium 3.1 mmol/L (3.3-5.1); Sodium 135 mmol/L (135-145); Total Protein 6.5 g/dL (6.5-8.0)
--- NOTE | 2025-07-30 10:13 | P.PNIM_ITS ---
Subjective Subjective Date of Service: 07/30/25 Interval History: still with pain Physical Exam 2 Exam: Exam: General: AO X 3, in pain, jaundice Resp: CTA bilateral, no accessory muscles used CVS: S1,S2,RRR GI: soft, tender, non distended Neuro: motor grossly intact, alert Psych: appropriate affect, appropriate insight Vital Signs: Vital Signs: Last Vital Signs Temp 97.1 F 07/30/25 08:00 Pulse 104 H 07/30/25 08:00 Resp 18 07/30/25 08:00 BP 124/80 07/30/25 08:00 Pulse Ox 99 07/30/25 08:00 O2 Del Method Room Air 07/30/25 08:00 BMI result Body Mass Index 30.4 Objective Data Active Medications Acetaminophen (Acetaminophen 325 Mg Tablet) 650 mg PO Q6H PRN PRN Reason: Pain, Mild 1-3,fever,headache Last Admin: 07/27/25 08:35 Dose: 650 mg Documented By: DUY Calcium Carbonate (Calcium Carbonate 750 Mg Tab.Chew) 750 mg PO Q4H PRN PRN Reason: Heartburn Enoxaparin Sodium (Enoxaparin Sodium 40 Mg/0.4 Ml Syringe) 40 mg SUBCUT Q24H [facility] Last Admin: 07/30/25 07:57 Dose: 40 mg Documented By: KESHA Folic Acid (Folic Acid 1 Mg Tablet) 1 mg PO DAILY [facility] Last Admin: 07/30/25 07:58 Dose: 1 mg Documented By: KESHA Hydromorphone HCl (Hydromorphone Hcl 0.5 Mg/0.5 Ml Syringe) 1 mg IVPUSH Q3H PRN; Protocol PRN Reason: Breakthrough Pain Last Admin: 07/30/25 07:58 Dose: 1 mg Documented By: KESHA Thiamine HCl 100 mg/ Sodium (Chloride) 101 mls @ 202 mls/hr IV DAILY [facility] Last Infusion: 07/30/25 08:44 Dose: Infused Documented By: KESHA Sodium Chloride (Ns) 1,000 mls @ 100 mls/hr IVCONT .Q10H [facility] Last Admin: 07/30/25 02:21 Dose: 100 mls/hr Documented By: ALEXANDRA Magnesium Hydroxide (Milk Of Magnesia 30 Ml Oral.Susp) 30 ml PO DAILY PRN PRN Reason: Constipation [facility] ([facility] Admin: 07/30/25 07:58 Dose: 800 mg Documented By: KESHA Melatonin (Melatonin 3 Mg Tablet) 6 mg PO BEDTIME PRN PRN Reason: Insomnia Last Admin: 07/28/25 20:10 Dose: 6 mg Documented By: ALEXANDRA Multivitamins/Vitamin C (Multivitamin Tablet) 1 tab PO DAILY [facility] Last Admin: 07/30/25 07:58 Dose: 1 tab Documented By: KESHA Pharmacy Consult (Consult Rx Etoh Phenob Im/Po) 1 each MISCELLANE ONCE PRN; Protocol PRN Reason: Consult order Phenobarbital (Phenobarbital 15 Mg Tablet) 15 mg PO BID [facility]; Protocol Stop: 07/31/25 09:01 Last Admin: 07/30/25 07:58 Dose: 15 mg Documented By: KESHA Phenobarbital (Phenobarbital 15 Mg Tablet) 15 mg PO DAILY [facility]; Protocol Stop: 08/02/25 09:01 Sodium Chloride (0.9 % Sodium Chloride Flush 3 Ml Syringe) 3 ml IVFLUSH QSHIFT [facility] Last Admin: 07/29/25 20:20 Dose: Not Given Documented By: ALEXANDRA Non-Admin Reason: IV Running Labs 07/30/25 07:38 07/30/25 07:38 Labs: Laboratory Results - last 24 hr 07/30/25 07:38 MCV 107.4 H MCH 36.2 H MCHC 33.7 RDW 16.2 H Plt Count 170 MPV 9.7 Absolute Nucleated RBC 0.060 H Nucleated RBC % (auto) 0.8 H PT 20.9 H INR 1.8 H Anion Gap 15 Estim Creat Clear Calc 243.5 Estimated GFR > 60 Random Glucose 105 Calcium 8.4 Magnesium 1.8 Total Bilirubin 2.8 H Direct Bilirubin 2.2 H AST 195 H ALT 24 Alkaline Phosphatase 337 H Total Protein 6.5 Albumin 3.4 L Assessment and Plan (1) Acute alcoholic pancreatitis: Status: Acute Plan 40F PMH bipolar, alcohol dependence, hypertension presented with abdominal pain Acute alcoholic hepatitis Encourage p.o. intake, LFTs starting to improve Acute alcoholic pancreatitis Continue IV fluids, advance diet as tolerated - has not tolerated p.o. Alcohol dependence with acute withdrawal phenobarb, CIWA Vitamin supplement Acute hypokalemia and hypomagnesemia symptomatic Replace Bipolar Mood stabilizers DVT prophylaxis with Lovenox Full code reason for continued hospitalization: not tolerating po Quality Stroke Does the patient have a stroke diagnosis?: No VTE Prior VTE?: No VTE Risk Level:: Medical - moderate - high VTE Device Contraindication: Treatment Not Indicated VTE Drug Contraindication: N/A - Med Ordered
[2025-07-30] MEDS: Potassium Chloride ER 20 MEQ TAB.ER.PRT 40 MEQ PO (11:44)
[2025-07-30] MEDS: 0.9 % Sodium Chloride Flush 3 ML SYRINGE IVFLUSH (17:25)
--- NOTE | 2025-07-30 20:06 | PC.NURSE ---
pt requested to have change of nurse to Alea RN. pt states needs are met at this time, calm sitting upright in no apparent distress with partner at bedside, call box in reach. charge Roxy Chow notified, verbal report given to Alea
[2025-07-31] VITALS (10 sets, daily range): BP systolic 108–131; BP diastolic 63–79; PULSE 86–102; RESP 14–20; TEMP 36.1–36.7; O2SAT 96–100
[2025-07-31] MEDS: Thiamine HCL 100 MG in 0.9 % Sodium Chloride 100 ML 202 MG IV (08:45)
[2025-07-31] MEDS: 0.9 % Sodium Chloride Flush 3 ML SYRINGE IVFLUSH ×2 (08:59→18:56)
--- NOTE | 2025-07-31 10:17 | P.PNIM_ITS ---
Subjective Subjective Date of Service: 07/31/25 Interval History: Continues to complain of severe abdominal pain inability to tolerate p.o. Physical Exam 2 Exam: Exam: General: AO X 3, in pain, jaundice Resp: CTA bilateral, no accessory muscles used CVS: S1,S2,RRR GI: soft, tender, non distended Neuro: motor grossly intact, alert Psych: appropriate affect, appropriate insight Vital Signs: Vital Signs: Last Vital Signs Temp 97 F 07/31/25 07:16 Pulse 98 07/31/25 07:16 Resp 18 07/31/25 07:16 BP 124/79 07/31/25 07:16 Pulse Ox 99 07/31/25 07:16 O2 Del Method Room Air 07/31/25 07:16 BMI result Body Mass Index 30.4 Objective Data Active Medications Acetaminophen (Acetaminophen 325 Mg Tablet) 650 mg PO Q6H PRN PRN Reason: Pain, Mild 1-3,fever,headache Last Admin: 07/27/25 08:35 Dose: 650 mg Documented By: DUY Calcium Carbonate (Calcium Carbonate 750 Mg Tab.Chew) 750 mg PO Q4H PRN PRN Reason: Heartburn Enoxaparin Sodium (Enoxaparin Sodium 40 Mg/0.4 Ml Syringe) 40 mg SUBCUT Q24H [facility] Last Admin: 07/30/25 07:57 Dose: 40 mg Documented By: KESHA Folic Acid (Folic Acid 1 Mg Tablet) 1 mg PO DAILY [facility] Last Admin: 07/31/25 08:47 Dose: 1 mg Documented By: GOPAL Hydromorphone HCl (Hydromorphone Hcl 0.5 Mg/0.5 Ml Syringe) 1 mg IVPUSH Q3H PRN; Protocol PRN Reason: Breakthrough Pain Last Admin: 07/31/25 08:48 Dose: 1 mg Documented By: GOPAL Thiamine HCl 100 mg/ Sodium (Chloride) 101 mls @ 202 mls/hr IV DAILY [facility] Last Infusion: 07/31/25 09:43 Dose: Infused Documented By: GOPAL Sodium Chloride (Ns) 1,000 mls @ 100 mls/hr IVCONT .Q10H [facility] Last Admin: 07/30/25 23:02 Dose: 100 mls/hr Documented By: ALEXANDRA Magnesium Hydroxide (Milk Of Magnesia 30 Ml Oral.Susp) 30 ml PO DAILY PRN PRN Reason: Constipation Magnesium Oxide (Magnesium Oxide 400 Mg Tablet) 800 mg PO BIDPC [facility] Last Admin: 07/31/25 08:47 Dose: 800 mg Documented By: GOPAL Melatonin (Melatonin 3 Mg Tablet) 6 mg PO BEDTIME PRN PRN Reason: Insomnia Last Admin: 07/30/25 23:07 Dose: 6 mg Documented By: ALEXANDRA Multivitamins/Vitamin C (Multivitamin Tablet) 1 tab PO DAILY [facility] Last Admin: 07/31/25 08:57 Dose: 1 tab Documented By: GOPAL Pharmacy Consult (Consult Rx Etoh Phenob Im/Po) 1 each MISCELLANE ONCE PRN; Protocol PRN Reason: Consult order Phenobarbital (Phenobarbital 15 Mg Tablet) 15 mg PO DAILY [facility]; Protocol Stop: 08/02/25 09:01 Sodium Chloride (0.9 % Sodium Chloride Flush 3 Ml Syringe) 3 ml IVFLUSH QSHIFT [facility] Last Admin: 07/31/25 08:59 Dose: 3 ml Documented By: GOPAL Labs 07/30/25 07:38 07/30/25 07:38 Assessment and Plan (1) Acute alcoholic pancreatitis: Status: Acute Plan 40F PMH bipolar, alcohol dependence, hypertension presented with abdominal pain Acute alcoholic hepatitis Encourage p.o. intake, LFTs starting to improve Acute alcoholic pancreatitis Continue IV fluids, advance diet as tolerated - has not tolerated p.o. Alcohol dependence with acute withdrawal phenobarb, CIWA Vitamin supplement Acute hypokalemia and hypomagnesemia symptomatic Replace Bipolar Mood stabilizers DVT prophylaxis with Lovenox Full code reason for continued hospitalization: not tolerating po Quality Stroke Does the patient have a stroke diagnosis?: No VTE Prior VTE?: No VTE Risk Level:: Medical - moderate - high VTE Device Contraindication: Treatment Not Indicated VTE Drug Contraindication: N/A - Med Ordered
[2025-07-31] MEDS: Milk of Magnesia 30 ML ORAL.SUSP PO (12:35)
--- NOTE | 2025-07-31 13:39 | MHC.CM.PN ---
Pt. has not been medically cleared to DC, she is still not eating, plan is to advance diet.
[2025-08-01] VITALS (11 sets, daily range): BP systolic 98–117; BP diastolic 55–72; PULSE 80–104; RESP 16–20; TEMP 36.1–38.2; O2SAT 96–100
[2025-08-01 06:15] LABS: INTERNATIONAL NORM RATIO 1.9 (0.9-1.1); Prothrombin Time 21.3 SEC (10.9-12.4)
[2025-08-01 06:27] LABS: Alanine Aminotransferase 27 U/L (0-31); Albumin Level 3.3 g/dL (3.5-5.0); Alkaline Phosphatase 389 U/L (39-117); Anion Gap 11 (12-20); Aspartate Amino Transferase 172 U/L (5-31); Blood Urea Nitrogen 5 mg/dL (9-16); Calcium 8.1 mg/dL (8.4-10.2); Carbon Dioxide 26 mmol/L (22-29); Chloride 101 mmol/L (96-108); Creatinine Clr Calc Pharmacy 236.3; Estimated Glomerular Filt Rate > 60; Lipase 244 U/L (8-78); Magnesium 2.2 mg/dL (1.6-2.6); Potassium 3.2 mmol/L (3.3-5.1); Sodium 135 mmol/L (135-145); Total Protein 6.4 g/dL (6.5-8.0)
[2025-08-01 06:28] LABS: Hematocrit 26.6 % (37.0-47.0); Hemoglobin 9.1 g/dl (12.0-16.0); Mean Corpuscular HGB Conc 34.2 g/dl (31.0-35.0); Mean Corpuscular Hemoglobin 37.1 pg (27.0-33.0); Mean Corpuscular Volume 108.6 fL (80.0-98.0); NRBC Abs Auto 0.020 X10*3/uL (0.0-0.012); NRBC Pct Auto 0.2 /100WBC (0.0-0.2); Platelet Count 235 X10*3/uL (160-400); Red Blood Count 2.45 X10*6/uL (4.20-5.50); White Blood Count 8.8 X10*3/uL (4.8-10.8)
--- NOTE | 2025-08-01 06:50 | PC.NURSE ---
Patient making frequent, early requests for ordered 1mg dilaudid q3hr prn, often requesting it an hour before it is due despite improved pain ratings and patient frequently observed sleeping on reassessment rounds. Abdominal assessments unchanged from mortgage loan underwriter's initial. No nausea or vomiting reported. Covering Dr. Agus Moody was notified with MD orders for labs including CRP and lipase, CT abdomen/pelvis to reassess pancreatitis, and 1x orders for gabapentin and toradol. When mortgage loan underwriter attempted to educate on plan and medicate this patient with these medications, she stated It's not gonna do anything. I need dilaudid. But I guess I'll take it . Of note, the patient rated her pain as a 3/10 at this time. Patient educated on non-pharmacologic interventions (ice packs given overnight, educated on abdominal splinting). Patient was observed sleeping in bed with chest rise/breathing even and unlabored without distress on post-administration reassessment. Patient continues to refuse high falls measures (CIWA). Low falls measures in place as pt allows. Plan of care ongoing.
[2025-08-01] MEDS: 0.9 % Sodium Chloride Flush 3 ML SYRINGE IVFLUSH ×3 (09:45→20:35)
--- NOTE | 2025-08-01 10:32 | P.PNIM_ITS ---
Subjective Subjective Date of Service: 08/01/25 Interval History: Unable to tolerate solids still needing IV pain meds Physical Exam 2 Exam: Exam: General: AO X 3, in pain, jaundice Resp: CTA bilateral, no accessory muscles used CVS: S1,S2,RRR GI: soft, tender, non distended Neuro: motor grossly intact, alert Psych: appropriate affect, appropriate insight Vital Signs: Vital Signs: Last Vital Signs Temp 97.8 F 08/01/25 08:00 Pulse 80 08/01/25 08:00 Resp 20 08/01/25 08:00 BP 112/67 08/01/25 08:00 Pulse Ox 98 08/01/25 08:00 O2 Del Method Room Air 08/01/25 08:00 BMI result Body Mass Index 30.4 Objective Data Active Medications Acetaminophen (Acetaminophen 325 Mg Tablet) 650 mg PO Q6H PRN PRN Reason: Pain, Mild 1-3,fever,headache Last Admin: 07/31/25 21:24 Dose: 650 mg Documented By: ALESIA Calcium Carbonate (Calcium Carbonate 750 Mg Tab.Chew) 750 mg PO Q4H PRN PRN Reason: Heartburn Enoxaparin Sodium (Enoxaparin Sodium 40 Mg/0.4 Ml Syringe) 40 mg SUBCUT Q24H [facility] Last Admin: 08/01/25 09:17 Dose: Not Given Documented By: MARTY Non-Admin Reason: Patient Refused Folic Acid (Folic Acid 1 Mg Tablet) 1 mg PO DAILY [facility] Last Admin: 08/01/25 09:44 Dose: 1 mg Documented By: MARTY Hydromorphone HCl (Hydromorphone Hcl 0.5 Mg/0.5 Ml Syringe) 1 mg IVPUSH Q3H PRN; Protocol PRN Reason: Breakthrough Pain Last Admin: 08/01/25 09:44 Dose: 1 mg Documented By: MARTY Magnesium Hydroxide (Milk Of Magnesia 30 Ml Oral.Susp) 30 ml PO DAILY PRN PRN Reason: Constipation Last Admin: 07/31/25 12:35 Dose: 30 ml Documented By: SANTKWABENA Magnesium Oxide (Magnesium Oxide 400 Mg Tablet) 800 mg PO BIDPC [facility] Last Admin: 08/01/25 09:43 Dose: 800 mg Documented By: MARTY Melatonin (Melatonin 3 Mg Tablet) 6 mg PO BEDTIME PRN PRN Reason: Insomnia Last Admin: 07/31/25 22:16 Dose: 6 mg Documented By: ALESIA Multivitamins/Vitamin C (Multivitamin Tablet) 1 tab PO DAILY [facility] Last Admin: 08/01/25 09:43 Dose: 1 tab Documented By: MARTY Pharmacy Consult (Consult Rx Etoh Phenob Im/Po) 1 each MISCELLANE ONCE PRN; Protocol PRN Reason: Consult order Phenobarbital (Phenobarbital 15 Mg Tablet) 15 mg PO DAILY [facility]; Protocol Stop: 08/02/25 09:01 Last Admin: 08/01/25 09:44 Dose: 15 mg Documented By: MARTY Sodium Chloride (0.9 % Sodium Chloride Flush 3 Ml Syringe) 3 ml IVFLUSH QSHIFT [facility] Last Admin: 08/01/25 09:45 Dose: 3 ml Documented By: MARTY Thiamine HCl (Thiamine Hcl 100 Mg Tablet) 100 mg PO DAILY [facility] Last Admin: 08/01/25 09:49 Dose: 100 mg Documented By: MARTY Labs 08/01/25 05:30 08/01/25 05:30 Labs: Laboratory Results - last 24 hr 08/01/25 05:30 MCV 108.6 H MCH 37.1 H MCHC 34.2 RDW 17.8 H Plt Count 235 D MPV 9.8 Absolute Nucleated RBC 0.020 H Nucleated RBC % (auto) 0.2 PT 21.3 H INR 1.9 H Anion Gap 11 L Estim Creat Clear Calc 236.3 Estimated GFR > 60 Random Glucose 102 Calcium 8.1 L Magnesium 2.2 Total Bilirubin 2.7 H Direct Bilirubin 2.1 H AST 172 H ALT 27 Alkaline Phosphatase 389 H C-Reactive Protein 13.86 H Total Protein 6.4 L Albumin 3.3 L Lipase 244 H Assessment and Plan (1) Acute alcoholic pancreatitis: Status: Acute Plan 40F PMH bipolar, alcohol dependence, hypertension presented with abdominal pain Acute alcoholic hepatitis Encourage p.o. intake, LFTs starting to improve, continue to monitor Acute alcoholic pancreatitis advance diet as tolerated - has not tolerated p.o. Check repeat CT abdomen Alcohol dependence with acute withdrawal Status post phenobarb, resolved Vitamin supplement Acute hypokalemia and hypomagnesemia symptomatic Replaced Bipolar Mood stabilizers DVT prophylaxis with Lovenox Full code reason for continued hospitalization: not tolerating po, IV pain meds Quality Stroke Does the patient have a stroke diagnosis?: No VTE Prior VTE?: No VTE Risk Level:: Medical - moderate - high VTE Device Contraindication: Treatment Not Indicated VTE Drug Contraindication: N/A - Med Ordered
[2025-08-01] MEDS: iohexoL 350 MG/ML 100 ML INFUS..BTL IV (16:31)
[2025-08-02 00:38] VITALS: RESP 16
--- NOTE | 2025-08-02 02:30 | PC.NURSE ---
At 00:34am, Pt stated she had just eaten reheated soup, which she had added hot sauce to. RN educated pt about diet related to pancreatitis and exacerbation of pain.
[2025-08-02 03:39] VITALS: RESP 18
[2025-08-02 06:39] VITALS: RESP 16
[2025-08-02 07:05] VITALS: BP 116/61; PULSE 88; RESP 18; TEMP 36.4; O2SAT 97
[2025-08-02 07:09] LABS: Hematocrit 26.9 % (37.0-47.0); Hemoglobin 8.8 g/dl (12.0-16.0); Mean Corpuscular HGB Conc 32.7 g/dl (31.0-35.0); Mean Corpuscular Hemoglobin 36.7 pg (27.0-33.0); NRBC Abs Auto 0.030 X10*3/uL (0.0-0.012); NRBC Pct Auto 0.3 /100WBC (0.0-0.2); Platelet Count 285 X10*3/uL (160-400); Red Blood Count 2.40 X10*6/uL (4.20-5.50); White Blood Count 9.8 X10*3/uL (4.8-10.8)
[2025-08-02 07:10] LABS: INTERNATIONAL NORM RATIO 1.8 (0.9-1.1); Prothrombin Time 20.7 SEC (10.9-12.4)
[2025-08-02 07:17] LABS: Mean Corpuscular Volume 112.1 fL (80.0-98.0)
[2025-08-02 07:27] LABS: Alanine Aminotransferase 27 U/L (0-31); Albumin Level 3.1 g/dL (3.5-5.0); Alkaline Phosphatase 411 U/L (39-117); Anion Gap 14 (12-20); Aspartate Amino Transferase 163 U/L (5-31); Blood Urea Nitrogen 9 mg/dL (9-16); Calcium 8.2 mg/dL (8.4-10.2); Carbon Dioxide 23 mmol/L (22-29); Chloride 101 mmol/L (96-108); Creatinine Clr Calc Pharmacy 170.9; Estimated Glomerular Filt Rate > 60; Magnesium 2.4 mg/dL (1.6-2.6); Potassium 3.5 mmol/L (3.3-5.1); Sodium 134 mmol/L (135-145); Total Protein 6.3 g/dL (6.5-8.0)
--- NOTE | 2025-08-02 08:43 | HO.PM.IMPN ---
Subjective Subjective Date of Service: 08/02/25 Interval History: Acute pancreatitis Review of Systems Still saying lot of abdominal pain, unable to tolerate diet, feel nauseated. Review of Systems: Yes all other systems are reviewed and are negative Physical Exam Exam: Exam: General: AO X 3, in pain, jaundice Resp: CTA bilateral, no accessory muscles used CVS: S1,S2,RRR GI: soft, tender, non distended Neuro: motor grossly intact, alert Psych: appropriate affect, appropriate insight Vital Signs: Vital Signs: Last Vital Signs Temp 97.5 F 08/02/25 07:05 Pulse 88 08/02/25 07:05 Resp 18 08/02/25 07:05 BP 116/61 08/02/25 07:05 Pulse Ox 97 08/02/25 07:05 O2 Del Method Room Air 08/02/25 07:05 BMI result Body Mass Index 30.4 Objective Data Active Medications Acetaminophen (Acetaminophen 325 Mg Tablet) 650 mg PO Q6H PRN PRN Reason: Pain, Mild 1-3,fever,headache Last Admin: 08/01/25 16:13 Dose: 650 mg Documented By: MARTY Calcium Carbonate (Calcium Carbonate 750 Mg Tab.Chew) 750 mg PO Q4H PRN PRN Reason: Heartburn Enoxaparin Sodium (Enoxaparin Sodium 40 Mg/0.4 Ml Syringe) 40 mg SUBCUT Q24H [facility] Last Admin: 08/01/25 09:17 Dose: Not Given Documented By: MARTY Non-Admin Reason: Patient Refused Folic Acid (Folic Acid 1 Mg Tablet) 1 mg PO DAILY [facility] Last Admin: 08/01/25 09:44 Dose: 1 mg Documented By: MARTY Gabapentin (Gabapentin 600 Mg Tablet) 600 mg PO TID [facility] Last Admin: 08/01/25 20:35 Dose: 600 mg Documented By: MONICA Hydromorphone HCl (Hydromorphone Hcl 0.5 Mg/0.5 Ml Syringe) 1 mg IVPUSH Q3H PRN; Protocol PRN Reason: Breakthrough Pain Last Admin: 08/02/25 06:39 Dose: 1 mg Documented By: MONICA Magnesium Hydroxide (Milk Of Magnesia 30 Ml Oral.Susp) 30 ml PO DAILY PRN PRN Reason: Constipation Last Admin: 07/31/25 12:35 Dose: 30 ml Documented By: GOPAL Magnesium Oxide (Magnesium Oxide 400 Mg Tablet) 800 mg PO BIDPC [facility] Last Admin: 08/01/25 16:14 Dose: 800 mg Documented By: MARTY Melatonin (Melatonin 3 Mg Tablet) 6 mg PO BEDTIME PRN PRN Reason: Insomnia Last Admin: 08/02/25 00:38 Dose: 6 mg Documented By: MONICA Multivitamins/Vitamin C (Multivitamin Tablet) 1 tab PO DAILY [facility] Last Admin: 08/01/25 09:43 Dose: 1 tab Documented By: MARTY Pharmacy Consult (Consult Rx Etoh Phenob Im/Po) 1 each MISCELLANE ONCE PRN; Protocol PRN Reason: Consult order Phenobarbital (Phenobarbital 15 Mg Tablet) 15 mg PO DAILY [facility]; Protocol Stop: 08/02/25 09:01 Last Admin: 08/01/25 09:44 Dose: 15 mg Documented By: MARTY Sodium Chloride (0.9 % Sodium Chloride Flush 3 Ml Syringe) 3 ml IVFLUSH QSHIFT [facility] Last Admin: 08/01/25 20:35 Dose: 3 ml Documented By: MONICA Thiamine HCl (Thiamine Hcl 100 Mg Tablet) 100 mg PO DAILY [facility] Last Admin: 08/01/25 09:49 Dose: 100 mg Documented By: MARTY Labs 08/02/25 06:38 08/02/25 06:38 Labs: Laboratory Results - last 24 hr 08/02/25 06:38 MCV 112.1 H MCH 36.7 H MCHC 32.7 RDW 18.1 H Plt Count 285 MPV 9.9 Absolute Nucleated RBC 0.030 H Nucleated RBC % (auto) 0.3 H PT 20.7 H INR 1.8 H Anion Gap 14 Estim Creat Clear Calc 170.9 Estimated GFR > 60 Random Glucose 99 Calcium 8.2 L Magnesium 2.4 Total Bilirubin 2.5 H Direct Bilirubin 1.9 H AST 163 H ALT 27 Alkaline Phosphatase 411 H Total Protein 6.3 L Albumin 3.1 L Assessment and Plan (1) Acute alcoholic pancreatitis: Status: Acute Plan 40F PMH bipolar, alcohol dependence, hypertension presented with abdominal pain Acute alcoholic hepatitis Encourage p.o. intake, LFTs starting to improve, continue to monitor Acute alcoholic pancreatitis advance diet as tolerated - has not tolerated p.o. Check repeat CT abdomen Alcohol dependence with acute withdrawal Status post phenobarb, resolved Vitamin supplement Acute hypokalemia and hypomagnesemia symptomatic Replaced Bipolar Mood stabilizers DVT prophylaxis with Lovenox Full code reason for continued hospitalization: not tolerating po, IV pain meds Quality Stroke Does the patient have a stroke diagnosis?: No VTE Prior VTE?: No VTE Risk Level:: Medical - moderate - high VTE Device Contraindication: Treatment Not Indicated VTE Drug Contraindication: N/A - Med Ordered
[2025-08-02] MEDS: 0.9 % Sodium Chloride Flush 3 ML SYRINGE IVFLUSH ×3 (09:51→20:37)
[2025-08-02 11:26] LABS: Lipase 206 U/L (8-78)
--- NOTE | 2025-08-02 13:45 | MHC.CM.PN ---
EMR REVIEWED AND PER MD ROUNDS, PATIENT IS NOT MEDICALLY CLEARED FOR DISCHARGE DUE TO MANAGEMENT OF PAIN REQUIRING IV PAIN MEDICATIONS.
[2025-08-02 15:30] VITALS: BP 118/68; PULSE 107; RESP 20; TEMP 37.1; O2SAT 97
--- NOTE | 2025-08-02 17:16 | PC.NURSE ---
Pt demanding pain medication early despite not being due at the time of request. Pt stating to this RN its not ok for you to be late on my pain medication . This RN has been in pts room every 3 hours to administer pain medication per the order. Pt still reporting persistent pain and telling this RN specific pain medications I should be giving her on top of the dilaudid. Provider aware .
[2025-08-02 20:00] VITALS: BP 104/64; PULSE 112; RESP 18; TEMP 36.4; O2SAT 94
[2025-08-03 03:21] VITALS: BP 118/72; PULSE 107; RESP 18; TEMP 36.7; O2SAT 97
[2025-08-03 07:31] VITALS: BP 102/56; PULSE 100; RESP 18; TEMP 37; O2SAT 94
[2025-08-03] MEDS: 0.9 % Sodium Chloride Flush 3 ML SYRINGE IVFLUSH ×3 (07:50→19:43)
--- NOTE | 2025-08-03 10:07 | CONS_ITS ---
DATE OF SERVICE: 08/03/2025 REFERRING PHYSICIAN: Dr. Almonte REASON FOR CONSULTATION: Pancreatitis. HISTORY OF PRESENT ILLNESS: The patient is a 40-year-old woman, who was admitted to the hospital after presenting to the emergency room with complaints of abdominal pain on July 26 of this year. She describes the pain as epigastric and right upper quadrant pain, worse over a month or 2 prior to admission in the setting of alcohol use of 2 pints of liquor on a daily basis. She was evaluated and diagnosed with pancreatitis after CT imaging and laboratory studies showed changes consistent with this. She denies a prior history of pancreatitis. She has no family history of pancreatitis and was admitted to the hospital. She has been treated with IV fluids, pain medications, and GI tract rest and is currently using IV pain medications every 3 hours. Laboratory studies have shown a normal white count. Liver function tests were elevated, but have improved and lipase yesterday was 206 down from [address] scanning was done on August 01 and is reviewed. This shows mild interstitial pancreatitis. We reviewed this today. PAST MEDICAL HISTORY: 1. Alcohol abuse. 2. Bipolar disorder. 3. Panniculectomy and abdominoplasty. CURRENT MEDICATIONS: Her current medication list is reviewed in the chart. ALLERGIES: CITALOPRAM. FAMILY HISTORY: This is reviewed with the patient and is noncontributory. SOCIAL HISTORY: There is no current substance use since she has been admitted to the hospital. REVIEW OF SYSTEMS: SKIN: No pruritus. HEENT: Negative. CARDIOPULMONARY: She denies shortness of breath or chest pain. GASTROINTESTINAL: As above. GENITOURINARY: Negative. NEUROPSYCHIATRIC: Negative. PHYSICAL EXAMINATION: GENERAL: Reveals a pleasant female, lying comfortably in bed. VITAL SIGNS: Reviewed in the electronic medical record and are stable. SKIN: Anicteric. HEENT: Shows no scleral icterus. NECK: Without lymphadenopathy or thyromegaly. LUNGS: Clear. HEART: Shows a regular rate and rhythm. S1, S2. No murmur. ABDOMEN: Soft without focal masses or tenderness. Bowel sounds are present. There are surgical scars from her previous surgery. EXTREMITIES: Without edema. LABORATORY DATA AND IMAGING STUDIES: Reviewed. IMPRESSION: Pancreatitis. I discussed with her the need to avoid alcohol. So far, no other etiology for her pancreatitis has been identified. Agree with advancing her diet and treating her supportively. We discussed the risk of pancreatitis in the future from recurrent drinking. Thanks for asking me to see her. I will follow her in the hospital with you. MD DWAYNE Adams/DANE / [phone]
--- NOTE | 2025-08-03 13:28 | HO.PM.IMPN ---
Subjective Subjective Date of Service: 08/03/25 Interval History: abd pain Review of Systems Review of Systems: Yes all other systems are reviewed and are negative Physical Exam Exam: Exam: General: AO X 3, in pain, jaundice Resp: CTA bilateral, no accessory muscles used CVS: S1,S2,RRR GI: soft, tender, non distended Neuro: motor grossly intact, alert Psych: appropriate affect, appropriate insight Vital Signs: Vital Signs: Last Vital Signs Temp 98.6 F 08/03/25 07:31 Pulse 100 08/03/25 07:31 Resp 18 08/03/25 07:31 BP 102/56 L 08/03/25 07:31 Pulse Ox 94 08/03/25 07:31 O2 Del Method Room Air 08/03/25 07:31 BMI result Body Mass Index 30.4 Objective Data Active Medications Acetaminophen (Acetaminophen 325 Mg Tablet) 650 mg PO Q6H PRN PRN Reason: Pain, Mild 1-3,fever,headache Last Admin: 08/03/25 12:37 Dose: 650 mg Documented By: DES Calcium Carbonate (Calcium Carbonate 750 Mg Tab.Chew) 750 mg PO Q4H PRN PRN Reason: Heartburn Enoxaparin Sodium (Enoxaparin Sodium 40 Mg/0.4 Ml Syringe) 40 mg SUBCUT Q24H [facility] Last Admin: 08/03/25 07:39 Dose: Not Given Documented By: DES Non-Admin Reason: Patient Refused Folic Acid (Folic Acid 1 Mg Tablet) 1 mg PO DAILY [facility] Last Admin: 08/03/25 07:45 Dose: 1 mg Documented By: DES Gabapentin (Gabapentin 600 Mg Tablet) 600 mg PO TID [facility] Last Admin: 08/03/25 07:45 Dose: 600 mg Documented By: DES Hydromorphone HCl (Hydromorphone Hcl 0.5 Mg/0.5 Ml Syringe) 1 mg IVPUSH Q3H PRN; Protocol PRN Reason: Breakthrough Pain Last Admin: 08/03/25 12:56 Dose: 1 mg Documented By: DES Magnesium Hydroxide (Milk Of Magnesia 30 Ml Oral.Susp) 30 ml PO DAILY PRN PRN Reason: Constipation Last Admin: 07/31/25 12:35 Dose: 30 ml Documented By: SANTOL Magnesium Oxide (Magnesium Oxide 400 Mg Tablet) 800 mg PO BIDPC [facility] Last Admin: 08/03/25 07:45 Dose: 800 mg Documented By: DES Melatonin (Melatonin 3 Mg Tablet) 6 mg PO BEDTIME PRN PRN Reason: Insomnia Last Admin: 08/02/25 00:38 Dose: 6 mg Documented By: MONICA Multivitamins/Vitamin C (Multivitamin Tablet) 1 tab PO DAILY [facility] Last Admin: 08/03/25 07:45 Dose: 1 tab Documented By: DES Pantoprazole Sodium (Pantoprazole Sodium 40 Mg/10 Ml Vial) 40 mg IVPUSH BID@0630,1630 [facility] Last Admin: 08/03/25 06:20 Dose: 40 mg Documented By: MICHAEL Pharmacy Consult (Consult Rx Etoh Phenob Im/Po) 1 each MISCELLANE ONCE PRN; Protocol PRN Reason: Consult order Sodium Chloride (0.9 % Sodium Chloride Flush 3 Ml Syringe) 3 ml IVFLUSH QSHIFT [facility] Last Admin: 08/03/25 07:50 Dose: 3 ml Documented By: DES Thiamine HCl (Thiamine Hcl 100 Mg Tablet) 100 mg PO DAILY [facility] Last Admin: 08/03/25 07:45 Dose: 100 mg Documented By: DES Labs 08/02/25 06:38 08/02/25 06:38 Assessment and Plan (1) Acute alcoholic pancreatitis: Status: Acute Plan 40F PMH bipolar, alcohol dependence, hypertension presented with abdominal pain Acute alcoholic hepatitis Encourage p.o. intake, LFTs starting to improve, continue to monitor Acute alcoholic pancreatitis advance diet as tolerated - has not tolerated p.o. CT abdomen-has mild interstitial pancreatitis Plan: Patient still complains lot of pain and saying she is not getting better but eating also and insisting she is not much improving pain aguirre at the same time seen by gI also -no new rec. Alcohol dependence with acute withdrawal Status post phenobarb, resolved Vitamin supplement Acute hypokalemia and hypomagnesemia symptomatic Replaced Bipolar Mood stabilizers DVT prophylaxis with Lovenox Full code reason for continued hospitalization: still c/o intractable pain -need IV pain meds, moniter po intake as well as added po pain meds. Quality Stroke Does the patient have a stroke diagnosis?: No VTE Prior VTE?: No VTE Risk Level:: Medical - moderate - high VTE Device Contraindication: Treatment Not Indicated VTE Drug Contraindication: N/A - Med Ordered
[2025-08-03 15:26] VITALS: BP 97/55; PULSE 97; RESP 16; TEMP 36.3; O2SAT 96
[2025-08-03 19:53] VITALS: BP 102/67; PULSE 98; RESP 18; TEMP 36.3; O2SAT 97
[2025-08-04 05:40] VITALS: BP 105/50; PULSE 91; RESP 18; TEMP 36.7; O2SAT 94
--- NOTE | 2025-08-04 07:31 | P.PNIM_ITS ---
Subjective Subjective Date of Service: 08/05/25 Interval History: abd pain Review of Systems taking diet but says abd pain imrpoving Review of Systems: Yes all other systems are reviewed and are negative Physical Exam 2 Exam: Exam: General: AO X 3, in pain, jaundice Resp: CTA bilateral, no accessory muscles used CVS: S1,S2,RRR GI: soft, pain improving, non distended Neuro: motor grossly intact, alert Psych: appropriate affect, appropriate insight Vital Signs: Vital Signs: Last Vital Signs Temp 98.0 F 08/04/25 05:40 Pulse 91 08/04/25 05:40 Resp 18 08/04/25 05:40 BP 105/50 L 08/04/25 05:40 Pulse Ox 94 08/04/25 05:40 O2 Del Method Room Air 08/04/25 05:40 BMI result Body Mass Index 30.4 Objective Data Active Medications Acetaminophen (Acetaminophen 325 Mg Tablet) 650 mg PO Q6H PRN PRN Reason: Pain, Mild 1-3,fever,headache Last Admin: 08/03/25 12:37 Dose: 650 mg Documented By: DES Calcium Carbonate (Calcium Carbonate 750 Mg Tab.Chew) 750 mg PO Q4H PRN PRN Reason: Heartburn Docusate Sodium (Docusate Sodium 100 Mg Capsule) 100 mg PO BID PRN PRN Reason: Constipation Enoxaparin Sodium (Enoxaparin Sodium 40 Mg/0.4 Ml Syringe) 40 mg SUBCUT Q24H [facility] Last Admin: 08/03/25 07:39 Dose: Not Given Documented By: DES Non-Admin Reason: Patient Refused Folic Acid (Folic Acid 1 Mg Tablet) 1 mg PO DAILY [facility] Last Admin: 08/03/25 07:45 Dose: 1 mg Documented By: DES Gabapentin (Gabapentin 600 Mg Tablet) 600 mg PO TID [facility] Last Admin: 08/03/25 19:40 Dose: 600 mg Documented By: CARLITOS Hydromorphone HCl (Hydromorphone Hcl 0.5 Mg/0.5 Ml Syringe) 0.5 mg IVPUSH Q3H PRN; Protocol PRN Reason: Breakthrough Pain Last Admin: 08/04/25 05:43 Dose: 0.5 mg Documented By: CARLITOS Hydromorphone HCl (Hydromorphone Hcl 2 Mg Tablet) 1 mg PO Q6H PRN PRN Reason: Pain, Moderate(Pain Scale 4-6) Last Admin: 08/03/25 19:41 Dose: 1 mg Documented By: CARLITOS Comments: given per pt request d/t iv pain med not due at this time Magnesium Hydroxide (Milk Of Magnesia 30 Ml Oral.Susp) 30 ml PO DAILY PRN PRN Reason: Constipation Last Admin: 07/31/25 12:35 Dose: 30 ml Documented By: GOPAL Magnesium Oxide (Magnesium Oxide 400 Mg Tablet) 800 mg PO BIDPC [facility] Last Admin: 08/03/25 17:21 Dose: 800 mg Documented By: DES Melatonin (Melatonin 3 Mg Tablet) 6 mg PO BEDTIME PRN PRN Reason: Insomnia Last Admin: 08/02/25 00:38 Dose: 6 mg Documented By: MONICA Multivitamins/Vitamin C (Multivitamin Tablet) 1 tab PO DAILY [facility] Last Admin: 08/03/25 07:45 Dose: 1 tab Documented By: DES Pantoprazole Sodium (Pantoprazole Sodium 40 Mg/10 Ml Vial) 40 mg IVPUSH BID@0630,1630 [facility] Last Admin: 08/04/25 05:43 Dose: 40 mg Documented By: CARLITOS Pharmacy Consult (Consult Rx Etoh Phenob Im/Po) 1 each MISCELLANE ONCE PRN; Protocol PRN Reason: Consult order Polyethylene Glycol (Polyethylene Glycol 3350 17 Gm Powd.Pack) 17 gm PO DAILY PRN PRN Reason: Constipation Sodium Chloride (0.9 % Sodium Chloride Flush 3 Ml Syringe) 3 ml IVFLUSH QSHIFT [facility] Last Admin: 08/03/25 19:43 Dose: 3 ml Documented By: CARLITOS Thiamine HCl (Thiamine Hcl 100 Mg Tablet) 100 mg PO DAILY [facility] Last Admin: 08/03/25 07:45 Dose: 100 mg Documented By: DES Labs 08/02/25 06:38 08/05/25 06:59 Assessment and Plan (1) Acute alcoholic pancreatitis: Status: Acute Plan 40F PMH bipolar, alcohol dependence, hypertension presented with abdominal pain Acute alcoholic hepatitis Encourage p.o. intake, LFTs starting to improve, continue to monitor Acute alcoholic pancreatitis advance diet as tolerated - has not tolerated p.o. CT abdomen-has mild interstitial pancreatitis Plan: Patient still complains lot of pain and saying she is not getting better but eating also and insisting she is not much improving pain aguirre at the same time seen by gI also -no new rec. Alcohol dependence with acute withdrawal Status post phenobarb, resolved Vitamin supplement Acute hypokalemia and hypomagnesemia symptomatic Replaced Bipolar Mood stabilizers DVT prophylaxis with Lovenox Full code reason for continued hospitalization: abd pain -trial of po diet/po pain meds. Quality Stroke Does the patient have a stroke diagnosis?: No VTE Prior VTE?: No VTE Risk Level:: Medical - moderate - high VTE Device Contraindication: Treatment Not Indicated VTE Drug Contraindication: N/A - Med Ordered
[2025-08-04 08:00] VITALS: BP 103/58; PULSE 90; RESP 16; TEMP 36.8; O2SAT 95
[2025-08-04 08:55] LABS: Alanine Aminotransferase 21 U/L (0-31); Albumin Level 2.9 g/dL (3.5-5.0); Alkaline Phosphatase 370 U/L (39-117); Anion Gap 11 (12-20); Aspartate Amino Transferase 136 U/L (5-31); Blood Urea Nitrogen 8 mg/dL (9-16); Calcium 8.0 mg/dL (8.4-10.2); Carbon Dioxide 26 mmol/L (22-29); Chloride 100 mmol/L (96-108); Creatinine Clr Calc Pharmacy 174.7; Estimated Glomerular Filt Rate > 60; Lipase 148 U/L (8-78); Potassium 4.2 mmol/L (3.3-5.1); Sodium 133 mmol/L (135-145); Total Protein 6.1 g/dL (6.5-8.0)
--- NOTE | 2025-08-04 12:42 | MHC.CM.PN ---
EMR REVIEWED AND PER MD ROUNDS, PT IS NOT YET MEDICALLY CLEARED FOR DC HOME (ABD PAIN CONTINUES) CM WILL CONTINUE TO FOLLOW FOR ANY CHANGE TO DC PLAN/NEEDS.
[2025-08-04 15:56] VITALS: BP 114/59; PULSE 84; RESP 16; TEMP 36.3; O2SAT 92
[2025-08-04 19:39] VITALS: BP 131/60; PULSE 96; RESP 18; TEMP 36.4; O2SAT 97
[2025-08-04] MEDS: 0.9 % Sodium Chloride Flush 3 ML SYRINGE IVFLUSH (19:57)
--- NOTE | 2025-08-04 23:51 | PM.EVENT ---
Event Note Date of Service: 08/05/25 Event Note: Nursing notified that pt is having ongoing abdominal pain and pt received dilaudid 0.5 mg with minimal effect. Pt is eating and drinking, dx ETOH acute pancreatitis. LIpase elevated 148. Ordered NPO to rest belly, starting NS at 125 mls per hour, valium 5 mg X1. Repeat Lipase in AM. Time Spent With Patient Time: Total time managing care of this patient today ____ minutes.
[2025-08-04] MEDS: diazePAM 10 MG/2 ML CARTRIDGE 5 MG IVPUSH (23:57)
--- NOTE | 2025-08-05 00:04 | MHC.PIE ---
p; pt c/o pain 10/10 to abd/back crying for iv dilaudid. note; iv dilaudid q6 given at 1957 for pain 10/10 for prn dilaudid po q6 was given at 1500 and not due. pt now awke crying for iv dilaudid reporting told me iv pain med i can have every 3 hrs . pt pt re educated on pain med times. prn po dilaudid given for pain with pt cont to cry for iv pain med. i; DOMENICA longoria notified. new order diet NPO, ivf NS @ 125, iv valium now e; will cont to monitor
[2025-08-05 03:11] VITALS: BP 92/55; PULSE 68; RESP 18; TEMP 36.3; O2SAT 97
[2025-08-05 07:36] VITALS: PULSE 80; RESP 16; TEMP 36.2; O2SAT 96
[2025-08-05 07:38] LABS: Alanine Aminotransferase 20 U/L (0-31); Albumin Level 2.9 g/dL (3.5-5.0); Alkaline Phosphatase 360 U/L (39-117); Anion Gap 10 (12-20); Aspartate Amino Transferase 117 U/L (5-31); Blood Urea Nitrogen 8 mg/dL (9-16); Calcium 7.8 mg/dL (8.4-10.2); Carbon Dioxide 25 mmol/L (22-29); Chloride 102 mmol/L (96-108); Creatinine Clr Calc Pharmacy 164.0; Estimated Glomerular Filt Rate > 60; Lipase 111 U/L (8-78); Potassium 3.9 mmol/L (3.3-5.1); Sodium 133 mmol/L (135-145); Total Protein 6.2 g/dL (6.5-8.0)
[2025-08-05] MEDS: 0.9 % Sodium Chloride Flush 3 ML SYRINGE IVFLUSH ×3 (07:44→20:02)
[2025-08-05 07:58] VITALS: BP 112/61
[2025-08-05 15:33] VITALS: BP 112/58; PULSE 90; RESP 18; TEMP 36.3; O2SAT 95
[2025-08-05 20:00] VITALS: BP 101/56; PULSE 96; RESP 18; TEMP 36.2; O2SAT 98
--- NOTE | 2025-08-06 07:28 | HO.PM.IMPN ---
Subjective Subjective Date of Service: 08/05/25 Interval History: abd pain Review of Systems overnight events from 08/04 noted patient is eating/abd pain somewhat improving Review of Systems: Yes all other systems are reviewed and are negative Physical Exam Exam: Exam: General: AO X 3, in pain, jaundice Resp: CTA bilateral, no accessory muscles used CVS: S1,S2,RRR GI: soft, pain improving, non distended Neuro: motor grossly intact, alert Psych: appropriate affect, appropriate insight Vital Signs: Vital Signs: Last Vital Signs Temp 97.1 F 08/05/25 20:00 Pulse 96 08/05/25 20:00 Resp 18 08/05/25 20:00 BP 101/56 L 08/05/25 20:00 Pulse Ox 98 08/05/25 20:00 O2 Del Method Room Air 08/05/25 20:00 BMI result Body Mass Index 30.4 Objective Data Active Medications Acetaminophen (Acetaminophen 325 Mg Tablet) 650 mg PO Q6H PRN PRN Reason: Pain, Mild 1-3,fever,headache Last Admin: 08/06/25 03:57 Dose: 650 mg Documented By: CARLITOS Comments: given per pt request Calcium Carbonate (Calcium Carbonate 750 Mg Tab.Chew) 750 mg PO Q4H PRN PRN Reason: Heartburn Docusate Sodium (Docusate Sodium 100 Mg Capsule) 100 mg PO BID PRN PRN Reason: Constipation Enoxaparin Sodium (Enoxaparin Sodium 40 Mg/0.4 Ml Syringe) 40 mg SUBCUT Q24H [facility] Last Admin: 08/05/25 10:33 Dose: Not Given Documented By: JEANMARIE Non-Admin Reason: Patient Refused Folic Acid (Folic Acid 1 Mg Tablet) 1 mg PO DAILY [facility] Last Admin: 08/05/25 07:43 Dose: 1 mg Documented By: JEANMARIE Gabapentin (Gabapentin 600 Mg Tablet) 600 mg PO TID [facility] Last Admin: 08/05/25 20:03 Dose: 600 mg Documented By: CARLITOS Hydromorphone HCl (Hydromorphone Hcl 2 Mg Tablet) 1 mg PO Q6H PRN PRN Reason: Pain, Moderate(Pain Scale 4-6) Last Admin: 08/06/25 03:57 Dose: 1 mg Documented By: CARLITOS Comments: given per pt request Magnesium Hydroxide (Milk Of Magnesia 30 Ml Oral.Susp) 30 ml PO DAILY PRN PRN Reason: Constipation Last Admin: 07/31/25 12:35 Dose: 30 ml Documented By: GOPAL Magnesium Oxide (Magnesium Oxide 400 Mg Tablet) 800 mg PO BIDPC [facility] Last Admin: 08/05/25 16:45 Dose: 800 mg Documented By: JEANMARIE Melatonin (Melatonin 3 Mg Tablet) 6 mg PO BEDTIME PRN PRN Reason: Insomnia Last Admin: 08/05/25 20:03 Dose: 6 mg Documented By: CARLITOS Multivitamins/Vitamin C (Multivitamin Tablet) 1 tab PO DAILY [facility] Last Admin: 08/05/25 07:43 Dose: 1 tab Documented By: JEANMARIE Omeprazole (Omeprazole 20 Mg Capsule.) 20 mg PO BID@0630,1630 [facility] Last Admin: 08/06/25 03:58 Dose: 20 mg Documented By: CARLITOS Comments: given per pt request Pharmacy Consult (Consult Rx Etoh Phenob Im/Po) 1 each MISCELLANE ONCE PRN; Protocol PRN Reason: Consult order Polyethylene Glycol (Polyethylene Glycol 3350 17 Gm Powd.Pack) 17 gm PO DAILY PRN PRN Reason: Constipation Last Admin: 08/05/25 20:53 Dose: 17 gm Documented By: CARLITOS Sodium Chloride (0.9 % Sodium Chloride Flush 3 Ml Syringe) 3 ml IVFLUSH QSHIFT [facility] Last Admin: 08/05/25 20:02 Dose: 3 ml Documented By: CARLITOS Thiamine HCl (Thiamine Hcl 100 Mg Tablet) 100 mg PO DAILY [facility] Last Admin: 08/05/25 07:43 Dose: 100 mg Documented By: JEANMARIE Labs 08/02/25 06:38 08/05/25 06:59 Assessment and Plan (1) Acute alcoholic pancreatitis: Status: Acute Plan 40F PMH bipolar, alcohol dependence, hypertension presented with abdominal pain Acute alcoholic hepatitis Encourage p.o. intake, LFTs starting to improve, continue to monitor Acute alcoholic pancreatitis overnight received pain meds iv and fluids advance diet as tolerated - has not tolerated p.o. CT abdomen-has mild interstitial pancreatitis Plan: Patient still complains lot of pain and saying she is not getting better but eating also and insisting she is not much improving pain aguirre at the same time seen by gI also -no new rec. Alcohol dependence with acute withdrawal Status post phenobarb, resolved Vitamin supplement Acute hypokalemia and hypomagnesemia symptomatic Replaced Bipolar Mood stabilizers DVT prophylaxis with Lovenox Full code Discussed with the staff/patient-patient is tolerating diet and asking for diet also-in addition her pain is more tolerable but she still wants to try a day or so with p.o. pain medications 24 hours. Patient does not look much in discomfort, explained to the patient that the plan is if his tolerate diet , we will plan discharge. date of service : 08/05/25 Quality Stroke Does the patient have a stroke diagnosis?: No VTE Prior VTE?: No VTE Risk Level:: Medical - moderate - high VTE Device Contraindication: Treatment Not Indicated VTE Drug Contraindication: N/A - Med Ordered
[2025-08-06 08:00] VITALS: BP 104/64; PULSE 78; RESP 18; TEMP 36.1; O2SAT 100
[2025-08-06] MEDS: 0.9 % Sodium Chloride Flush 3 ML SYRINGE IVFLUSH ×2 (09:10→15:02)
--- NOTE | 2025-08-06 12:40 | P.DS_ITS ---
DS: Providers Provider Date of Service: 08/06/25 Date of admission: 07/26/25 14:04 Date of discharge: 08/06/25 Primary care physician: Jayme Martines MD Consults: 07/26/25 14:17 Addiction Medicine Provider Routine Consulting Provider: Addiction Covering Reason for consultation: etoh 08/02/25 11:40 Consult to Gastroenterology Routine Consulting Provider: Viet Narvaez Reason for consultation: acute pancreatitis Has provider been notified: No Attending physician on discharge: Hugo Almonte Discharging clinician: Hugo Almonte DS: Diagnosis Discharge Diagnosis (1) Acute alcoholic pancreatitis: Status: Acute DS: Summary Hospital Course Hospital Course: HPI:40F PMH bipolar, alcohol dependence, hypertension presented with abdominal pain. Patient states she has had boggy feeling in the abdomen for several months but over the last 2 days has had severe epigastric pain with inability to tolerate p.o.. Her drinking has also decreased. She usually drinks a 5th of hard alcohol per day. She has noticed jaundice. In ED noted to have elevated bilirubin, pancreatitis on CAT scan. Hospital course: Patient was admitted to the hospital because of possible acute alcoholic pancreatitis , alcoholic hepatitis: CT abdomen showed mild pancreatitis-patient was started on IV hydration, pain medication, PPIs: With supportive care patient seems to be improved significantly, tolerating diet, LFTs and lipase seems improving, patient was still keep complaining abdominal pain CT abdomen repeated still shows mild interstitial pancreatitis, seen by GI recommended to abstain from alcohol and advanced diet-patient is tolerating diet but has some pain : Otherwise she is feeling much better, eating well but still hesitant and insisting for pain medications-discussed with the her in detail length-she is tolerating diet, her lipase and liver function improving, evaluated by GI and no new symptoms, abdomen is benign on exam-patient will be going home with p.o. pain medications. Hypokalemia and hyponatremia: Probably related to decreased p.o. intake, hypokalemia repleted and resolved, hyponatremia also resolved with IV fluid and p.o. intake. Mild microcytic anemia: Monitor CBC outpatient and further workup outpatient, denies any melena or any genesis bleeding. plan: Monitor CBC, CMP outpatient Strongly advised to abstain from alcohol. Dilaudid and gabapentin limited supply given. Omeprazole 20 mg daily Monitor cmp outpatient follow up with pcp/Gi outpatient Above management discussed with the patient in detail length she understand and in agreement with the above plan, time spent 50 minute. Time Attestation Total time managing care of this patient today: 50 mintues. Discharge Coordination Time (in mins): 50 minute Quality: Safe Use of Opioids Does Pt have an Active Cancer Diagnosis on the Problem List?: No Quality: Stroke Does the patient have a stroke diagnosis?: No Physical Exam Exam: Exam: Appearance: Alert.? Oriented X3.? cvs: rrr, [id number] , no murmur res: clear to auscultation ,no rhonchii or wheezing abd: no rebound or guarding ,nt, bs present. ext pulses present , no cyanosis . neuro: axo3 , nonfocal. Vital Signs: Vital Signs: Last Vital Signs Temp 97.0 F 08/06/25 08:00 Pulse 78 08/06/25 08:00 Resp 18 08/06/25 08:00 BP 104/64 08/06/25 08:00 Pulse Ox 100 08/06/25 08:00 O2 Del Method Room Air 08/06/25 08:00 BMI result Body Mass Index 30.4 DS: Data Data Completed and Pending Completed studies during hospitalization [Text1]: Procedures Drainage of Abdomen Subcutaneous Tissue and Fascia with Drainage Device, Percutaneous Approach (03/26/21) Imaging CT scan - abdomen: Radiologist's impression: ITS Impressions Chest X-Ray 07/26/25 11:10 IMPRESSION: Clear lungs. KUB X-Ray 07/26/25 11:10 IMPRESSION: Paucity of bowel gas. If there is clinical concern for bowel obstruction, CT is recommended. Abdomen/Pelvis CT 07/26/25 12:44 IMPRESSION: Prominent pancreatic head and small amount of fluid and fat stranding surrounding the head of the pancreas, proximal duodenum, right anterior pararenal fascia and root of the small bowel mesentery. This most likely represents changes from mild interstitial pancreatitis. Differential would include duodenitis. Enlarged fatty liver. Chest CTA 07/26/25 12:44 IMPRESSION: 1. No evidence of pulmonary emboli. Unremarkable CTA of the chest. 2. Hepatomegaly and hepatic steatosis. Abdomen/Pelvis CT 08/01/25 15:54 IMPRESSION: Increasing peripancreatic fat stranding and small amount of fluid and in the bilateral anterior pararenal fascia. Findings are suggestive of mild interstitial pancreatitis. The pancreas enhances normally without focal abnormality. The head of the pancreas is slightly enlarged. Increasing small amount of ascites in the abdomen and pelvis. Enlarged fatty liver. Discharge Plan Discharge Anticipated Discharge Date/Time: 08/06/25 12:30 Patient Disposition: Home, Self-Care Discharge Diagnosis: acute pancreatitis Referrals: Name,MD Jayme [Primary Care Provider, Internal Medicine] - 1 Week Discharge Medications: New gabapentin 600 mg Tablet 600 mg PO TID Qty: 15 0RF hydromorphone 2 mg Tablet 1 mg PO Q6H PRN (Reason: Pain, Moderate(Pain Scale 4-6)) Qty: 15 0RF Rx Instructions: Partial Fill upon patient request. magnesium oxide 400 mg (241.3 mg magnesium) Tablet 800 mg PO BIDPC Qty: 20 0RF docusate sodium 100 mg Capsule 100 mg PO BID PRN (Reason: Constipation) Qty: 30 0RF omeprazole 20 mg Capsule,Delayed Release(Dr/Ec) 20 mg PO DAILY Qty: 60 0RF folic acid 1 mg Tablet 1 mg PO DAILY Qty: 30 0RF thiamine mononitrate (vit B1) 100 mg Tablet 100 mg PO DAILY Qty: 30 0RF polyethylene glycol 3350 17 gram Powder In Packet 17 g PO DAILY PRN (Reason: Constipation) Qty: 10 0RF Discharge Orders: Discharge Order (Routine); Ordered 08/06/25 Ordered By: Hugo Almonte Diet: Advance to usual diet Activity on Discharge: As tolerated Stand Alone Forms: Patient Portal Discharge page Print Language: Singaporean Care Plan Goals: Acute pancreatitis Health Concerns: Monitor CBC and BMP outpatient Strongly advised to abstain from alcohol. Dilaudid and gabapentin limited supply given. Omeprazole 20 mg daily Monitor cmp outpatient follow up with pcp/Gi outpatient Plan of Treatment: As above. Assessment: As above.
[2025-08-06 12:56] LABS: Alanine Aminotransferase 17 U/L (0-31); Albumin Level 2.8 g/dL (3.5-5.0); Alkaline Phosphatase 346 U/L (39-117); Anion Gap 12 (12-20); Aspartate Amino Transferase 102 U/L (5-31); Blood Urea Nitrogen 6 mg/dL (9-16); Calcium 7.8 mg/dL (8.4-10.2); Carbon Dioxide 24 mmol/L (22-29); Chloride 104 mmol/L (96-108); Creatinine Clr Calc Pharmacy 174.7; Estimated Glomerular Filt Rate > 60; Lipase 127 U/L (8-78); Potassium 3.6 mmol/L (3.3-5.1); Sodium 136 mmol/L (135-145); Total Protein 6.0 g/dL (6.5-8.0)
[2025-08-06 15:26] VITALS: BP 112/58; PULSE 86; RESP 18; TEMP 36.6; O2SAT 100
--- NOTE | 2025-08-06 16:58 | MHC.CM.PN ---
PT IS CLEARED TO DC HOME WITH NO SERVICES SHE HAS BEEN RESISTANT TO LEAVE STATING SHE NEEDS PAIN MEDS, HOWEVER WILL DC WITH THEM SHE INITIALLY REPORTED HER BOYFRIEND WOULD PICK HER UP AT 1630, AND NOW STATES HE IS WORKING AND WILL BE HERE AT 1830 SHE IS AWARE SHE IS DISCHARGED AND IF HER S/O DOES NOT ARRIVE AT 1830, [facility] WILL BE ARRANGED
== END 2025-08-06 19:46 | disposition home or self-care (01) | DRG 282 ==
LOC: HO.ED 11:57 → HO.EDOVER 14:08 → HO.IMC 07-27 15:20 → HO.S3 08-02 19:01
PROVIDERS: Nurse Practitioner Family; Physician Assistant Medical; Admitting Provider Internal Medicine; Emergency Provider Emergency Medicine; PCP Internal Medicine Geriatric Medicine; Visit Provider Internal Medicine
DX: K85.20 Alcohol induced acute pancreatitis without necrosis or infection (principal); K70.10 Alcoholic hepatitis without ascites; E87.1 Hypo-osmolality and hyponatremia; E83.42 Hypomagnesemia; F10.239 Alcohol dependence with withdrawal, unspecified; E87.6 Hypokalemia; F31.9 Bipolar disorder, unspecified; D50.9 Iron deficiency anemia, unspecified; Y90.8 Blood alcohol level of 240 mg/100 ml or more; Z79.899 Other long term (current) drug therapy
CPT/HCPCS: 36415; 71046; 71275; 74018; 74177; 80048; 80053; 80076; 80143; 80307; 81001; 82010; 83605; 83690; 83735; 84484; 84702; 85025; 85027; 85610; 86140; 86704; 86706; 86709; 86803; 87086; 87340; 93005; 99285; J1171; J1650; J1885; J2270; J2405; J2470; J2560; J3360; J3411; J7120; Q9967

== ENCOUNTER → 2025-07-26 11:07 | Outpatient (BNV) | payer MEDICAID, SELFPAY | PROVIDERS: Emergency Provider Emergency Medicine; PCP Internal Medicine Geriatric Medicine; Visit Provider Internal Medicine Cardiovascular Disease | DX: R00.0 Tachycardia, unspecified (principal) | CPT/HCPCS: 93010 ==

== ENCOUNTER → 2025-07-26 11:07 | Outpatient (BNV) | payer MEDICAID, SELFPAY | PROVIDERS: Emergency Provider Emergency Medicine; PCP Internal Medicine Geriatric Medicine; Visit Provider Radiology Diagnostic Radiology | DX: R06.00 Dyspnea, unspecified (principal); K76.0 Fatty (change of) liver, not elsewhere classified; R10.9 Unspecified abdominal pain; R16.0 Hepatomegaly, not elsewhere classified; R07.9 Chest pain, unspecified; R06.02 Shortness of breath; R93.9 Diagnostic imaging inconclusive due to excess body fat of patient | CPT/HCPCS: 71046; 71275; 74018; 74177 ==

== ENCOUNTER 2025-07-26 14:04 | Outpatient (BNV) | payer MEDICAID, SELFPAY | END 2025-08-01 15:54 | PROVIDERS: Admitting Provider Internal Medicine; Emergency Provider Emergency Medicine; PCP Internal Medicine Geriatric Medicine; Visit Provider Radiology Diagnostic Radiology | DX: K85.90 Acute pancreatitis without necrosis or infection, unspecified (principal); R18.8 Other ascites | CPT/HCPCS: 74177 ==

== ENCOUNTER → 2025-07-26 14:04 | Outpatient (BNV) | payer MEDICAID, SELFPAY | PROVIDERS: Admitting Provider Internal Medicine; Emergency Provider Emergency Medicine; PCP Internal Medicine Geriatric Medicine; Visit Provider Internal Medicine | DX: K85.20 Alcohol induced acute pancreatitis without necrosis or infection (principal) | CPT/HCPCS: 99223; 99233 ==

== ENCOUNTER → 2025-07-26 14:04 | Outpatient (BNV) | payer OTHER, SELFPAY | PROVIDERS: Admitting Provider Internal Medicine; Emergency Provider Emergency Medicine; PCP Internal Medicine Geriatric Medicine; Visit Provider Nurse Practitioner Psychiatric/Mental Health | DX: F10.20 Alcohol dependence, uncomplicated (principal) | CPT/HCPCS: 99231 ==